=== PATIENT | female | born 1985 | race Caucasian/White ===

== ENCOUNTER 2024-12-26 14:30 | Inpatient (IN) ==
--- NOTE | 2024-12-26 14:48 | Emergency Department Note ---
Impression & Plan SBO (small bowel obstruction), Incarcerated hernia, Vomiting ED Provider Note NAME: SHYANNE DYER AGE: 39 SEX: F : 1985 ARRIVES VIA: Walk-In INFORMANT: [Patient][family] ED PROVIDER(S): [Nick Weiner MD] CHIEF COMPLAINT: Abdominal pain HISTORY OF PRESENT ILLNESS: Patient is a 39-year-old female who felt fine this morning. Over the last few hours, she has developed bilateral lower flank pain and anterior abdominal pain. Things are severe to the point where she is now vomiting. She presents moaning and crying in pain. The patient denies the discomfort being one-sided. She does have some known abdominal wall hernias and she wonders if the hernias are responsible. There has been no fever, no cough or congestion. No urinary complaints. No diarrhea. PMHx/PSHx/Social Hx: See Below PHYSICAL EXAM: GENERAL: Patient is in moderate distress from pain. Vomiting. HEENT: No acute trauma, normocephalic atraumatic, mucous membranes moist, no nasal congestion. NECK: No stridor, no adenopathy, no meningismus, trachea is midline. LUNGS: Clear to auscultation bilaterally, no wheeze, no rhonchi, breath sounds equal. HEART: Without murmurs gallops or rubs, regular rate and rhythm. ABDOMEN: Soft, obese, no peritonitis. She does have at least 2 areas of central abdominal herniation, the areas are tender but do seem at least partially reducible. The superior abdominal hernia is larger and more tender than the inferior hernia. EXTREMITIES: No cyanosis, full range of motion of all the joints without pain or difficulty. NEUROLOGIC: Oriented x 3, no acute motor or sensory deficits, no focal weakness. SKIN: No jaundice, no diaphoresis. DIFFERENTIAL DIAGNOSIS: Renal colic, bowel obstruction, incarcerated hernia, foodborne or viral illness, malignancy, among others. EMERGENCY DEPARTMENT PROCEDURES: MEDICAL DECISION MAKING: There is no leukocytosis or concerning anemia. There is a normal platelet count. There is no renal failure or significant electrolyte abnormality. No concerning liver enzyme elevation. No pancreatitis. testing was negative. Abdominal and pelvic CT shows what appears to be an incarcerated ventral wall abdominal hernia with resultant small bowel obstruction. On exam, the patient was vomiting and in quite a bit of discomfort. She did have some tenderness across the areas of abdominal wall hernia. The patient received IV Toradol, IV Zofran, IV Phenergan. She was given IV Dilaudid and eventually, IV fentanyl. She was given IV Pepcid. Patient was kept NPO. I did speak with general surgery. The patient was evaluated by general surgery here in the ED, she is in need of an operation. She is soon to be transferred to the operating room. Patient is aware of her findings and the need for surgery. She is somewhat improved since being treated here in the ED, her pain is less, she is no longer vomiting. Prior/Outside records/notes reviewed: None Imaging/x-ray results per my interpretation: Chronic Medical/Social conditions affecting care: None Care/Management discussed with: General Surgery-Dr. Martinez. Level of care consideration(s): After review of the information above and other included data: --I believe the patient requires escalation of care to admission Critical Care Note: I have personally spent 43 minutes of critical care time in the direct management of this patient. This includes bedside care, interpretation of diagnostic studies, and testing, discussion with consultants, patient, and family members, and other required patient management activities. This 43 minutes is in excess of all separately billable procedures. DISPOSITION: Admission Past Med/Surg History Problem List (Updated 12/26/24 @ 17:58 by Nick Weiner MD) Vomiting (Acute) Incarcerated hernia (Acute) SBO (small bowel obstruction) (Acute) Incarcerated ventral hernia Abnormal test (Acute 03/23/14) Fracture of distal fibula (Acute) Medical History Recurrent ventral hernia Social History Smoking Status: Former smoker Preferred Language: Omani Feels Safe at Home: Yes Allergies Allergies Allergy/AdvReac Type Severity Reaction Status Date / Time No Known Allergies Allergy Unverified 07/27/16 11:48 Home Meds Home Medications Medication Instructions Recorded Confirmed acetaminophen 325 mg tablet 325 mg PO DIRECTED PRN Pain 12/26/24 12/26/24 (Tylenol) albuterol sulfate 90 mcg/actuation 1 puff inhalation DIRECTED PRN 12/26/24 12/26/24 aerosol inhaler sob ashwagandha extract 1 tab PO DAILY 12/26/24 12/26/24 buspirone 10 mg tablet 10 mg PO TID PRN Anxiety 12/26/24 12/26/24 escitalopram oxalate 10 mg tablet 10 mg PO DAILY 12/26/24 12/26/24 famotidine 20 mg tablet 20 mg PO BID 12/26/24 12/26/24 ibuprofen 200 mg tablet 200 mg PO DIRECTED PRN Pain 12/26/24 12/26/24 iron 1 gummy PO DAILY 12/26/24 12/26/24 semaglutide 2 mg/dose (8 mg/3 mL) 2 mg subcut WK 12/26/24 12/26/24 subcutaneous pen injector (Ozempic) Results & Data (ED) Vital Signs Vital Signs - 24 hr 12/26/24 14:34 12/26/24 15:03 12/26/24 15:07 Temperature 36.4 C L Temperature Source Temporal Artery Scan Pulse Rate 78 77 Pulse Rate [Apical] 68 Respiratory Rate 20 22 Respiratory Effort / Characteristics Non-Labored Spontaneous Respiratory Depth Normal Respiratory Pattern Regular Blood Pressure 160/100 H Blood Pressure [Right Arm] 130/96 Blood Pressure Mean 120 Blood Pressure Mean [Right Arm] 107 Pulse Oximetry 99 97 Oxygen Delivery Method Room Air Room Air Oxygen Flow Rate Sepsis Recent Fever Within 48 Hours No Sepsis New/Unexplained Change in Mental Status N/A Sepsis Action Taken by Nursing No Action Required Oxygen Flow Rate - Titration Pulse Oximetry Post Tiitration 12/26/24 15:34 12/26/24 16:07 12/26/24 17:04 Temperature Temperature Source Pulse Rate Pulse Rate [Apical] 61 80 Respiratory Rate 20 18 Respiratory Effort / Characteristics Non-Labored Non-Labored Respiratory Depth Normal Normal Respiratory Pattern Blood Pressure Blood Pressure [Right Arm] 133/72 153/101 H Blood Pressure Mean Blood Pressure Mean [Right Arm] 92 118 Pulse Oximetry 88 L 99 100 Oxygen Delivery Method Room Air Nasal Cannula Nasal Cannula Oxygen Flow Rate 0 2 2 Sepsis Recent Fever Within 48 Hours Sepsis New/Unexplained Change in Mental Status Sepsis Action Taken by Nursing Oxygen Flow Rate - Titration 2 Pulse Oximetry Post Tiitration 99 Home Medications Current Medication List: was personally reviewed by me Laboratory Data Attestation: I reviewed the patient's lab results. 12/26/24 14:55 12/26/24 14:55 Lab Results 12/26/24 Range/Units 14:55 WBC 10.43 (4.8-10.8) K/ul RBC 4.35 (4.20-5.40) M/uL Hgb 13.6 (12.0-16.0) g/dl Hct 40.0 (37.0-47.0) % MCV 92.0 (80.0-100.0) fL MCH 31.3 (25.0-34.0) pg MCHC 34.0 (32.0-36.0) g/dL RDW Std Deviation 46.0 (36.4-46.3) fL RDW Coeff of Tram 13.5 (11.5-14.5) % Plt Count 322 (130-400) K/uL MPV 9.2 L (9.4-12.4) fL Immature Gran % (Auto) 0.3 % Neut % (Auto) 81.2 % Lymph % (Auto) 11.9 % [place] % (Auto) 5.8 % Eos % (Auto) 0.4 % Baso % (Auto) 0.4 % Neut # (Auto) 8.47 H (1.40-6.50) K/uL Lymph # (Auto) 1.24 (1.20-3.40) K/uL [place] # (Auto) 0.61 H (0.11-0.59) K/uL Eos # (Auto) 0.04 (0.00-0.50) K/uL Baso # (Auto) 0.04 (0.00-0.20) K/uL Immature Gran # (Auto) 0.03 (0.01-0.20) K/uL Sodium 138 (136-145) mmol/L Potassium 3.9 (3.5-5.1) mmol/L Chloride 105 (98-107) mmol/L Carbon Dioxide 25 (21-32) mmol/L Anion Gap 8 (3-11) BUN 16 (6-23) mg/dl Creatinine 0.56 L (0.6-1.2) mg/dl Est Cr Clr Drug Dosing 166.3 ml/min eGFR 118.98 BUN/Creatinine Ratio 28.6 H (10-20) Glucose 157 H (70-99(Fasting)) mg/dl Calcium 9.5 (8.6-10.3) mg/dl Total Bilirubin 0.6 (0.2-1.0) mg/dl AST 15 (13-39) U/L ALT 18 (7-52) U/L Alkaline Phosphatase 40 (34-104) U/L Total Protein 7.5 (6.0-8.3) gm/dl Albumin 4.5 (3.4-5.0) gm/dl Globulin 3.0 (2.5-4.0) gm/dl Albumin/Globulin Ratio 1.5 (0.9-2) Lipase 20 (11-82) U/L HCG, Qual Negative (Negative) Administered Medications Discontinued Medications Fentanyl Citrate (Fentanyl Citrate Pf 100 Mcg/2 Ml Vial) 75 mcg IV NOW ONE Stop: 12/26/24 15:36 Last Admin: 12/26/24 15:39 Dose: 75 mcg Documented By: AVINASH Fentanyl Citrate (Fentanyl Citrate Pf 100 Mcg/2 Ml Vial) 100 mcg IV NOW STA Stop: 12/26/24 17:22 Last Admin: 12/26/24 17:26 Dose: 100 mcg Documented By: AVINASH Hydromorphone HCl (Hydromorphone Inj 1 Mg/Ml Syringe) 1 mg IV NOW STA Stop: 12/26/24 14:45 Last Admin: 12/26/24 14:53 Dose: 1 mg Documented By: AVINASH Famotidine (Pepcid 20mg Iv Push) 20 mg in 5 mls @ 2.5 mls/min IV NOW STA Stop: 12/26/24 14:45 Last Admin: 12/26/24 14:53 Dose: 2.5 mls/min Documented By: AVINASH Promethazine HCl (Phenergan) 6.25 mg in 50.25 mls @ 201 mls/hr IV NOW STA Stop: 12/26/24 14:58 Last Infusion: 12/26/24 15:09 Dose: Infused Documented By: Admin: 12/26/24 14:53 Dose: 201 mls/hr Documented By: AVINASH Ioversol (Optiray 320 100ml) 94 ml IV ONCE ONE Stop: 12/26/24 15:50 Last Admin: 12/26/24 15:49 Dose: 94 ml Documented By: HANS Ketorolac Tromethamine (Ketorolac Tromethamine 15 Mg/Ml Vial) 15 mg IV NOW STA Stop: 12/26/24 14:45 Last Admin: 12/26/24 14:53 Dose: 15 mg Documented By: AVINASH Ondansetron HCl (Ondansetron Inj 2 Mg/Ml 2 Ml Vial) 4 mg IV NOW STA Stop: 12/26/24 14:45 Last Admin: 12/26/24 14:53 Dose: 4 mg Documented By: AVINASH Imaging Data Radiologist's Impression: Abdomen/Pelvis CT 12/26/24 14:[address] WITH IV CONTRAST CT DOSE: 1352.6 mGy.cm HISTORY: flank and diffuse abd pain, vomiting TECHNIQUE: Multiaxial CT images of the abdomen and pelvis were performed following the IV administration of 90 cc of Optiray, A dose lowering technique was utilized adhering to the principles of ALARA. COMPARISON STUDY: None FINDINGS: ABDOMEN: Liver, gallbladder, spleen, pancreas, and adrenal glands are unremarkable. No abdominal aortic aneurysm. There are a few tiny bilateral renal calculi. There is no hydronephrosis bilaterally. No ureteral calculi seen. Pelvis: There are 2 adjacent periumbilical hernias containing multiple small bowel loops. The hernias overall measures 10 cm in greatest axial dimension by 25 cm craniocaudad. There is a small amount of fluid inferiorly in the hernia. The small bowel loops within the superior hernia are mildly dilated measuring up to 3 cm diameter. There is mesenteric edema adjacent to the dilated small bowel loops. The small bowel just proximal to the hernia is also mildly dilated. The hernia neck is relatively narrow measuring 4 cm diameter. Findings suggest incarceration and small bowel obstruction. No other bowel inflammation or obstruction seen. There is moderate retained stool. There is trace pelvic free fluid. No free air, or abscess. Urinary bladder is nondistended. Uterus is either absent or extremely diminutive. No adnexal mass seen. No enlarged adenopathy seen. Osseous structures: There are mild lumbar spine degenerative changes. IMPRESSION: 1. There are 2 large periumbilical hernias which contain small bowel. The small bowel within the upper periumbilical hernia is mildly dilated with adjacent mesenteric edema and the small bowel just proximal to the hernia is also mildly dilated. The hernia neck is relatively narrow. Findings suggest incarceration and early small bowel obstruction. 2. No other acute findings seen. 3. Otherwise as described. ACT 112: Positive. There are findings on this exam that require communication between the performing entity and the patient following Patient Test Result Information Act ([place] Act 112) guidelines. The above report was generated using voice recognition software. It may contain grammatical, syntax or spelling errors. Electronically signed by: Cheng Briseno M.D. 12/26/2024 4:10 PM Discharge Plan Visit Data Chief Complaint: Abdominal Pain Stated Complaint: BACK PAIN, ABD/HERNIA PAIN ED Provider: Nick Weiner Discharge Problem: SBO (small bowel obstruction), Incarcerated hernia, Vomiting Patient Disposition: Admitted As Inpatient Condition: Fair Forms Stand Alone Forms: [facility] Prescriptions Prescriptions: No Action acetaminophen [Tylenol] 325 mg Tablet 325 mg PO DIRECTED PRN (Reason: Pain) Rx Instructions: otc famotidine 20 mg tablet 20 mg PO BID buspirone 10 mg tablet 10 mg PO TID PRN (Reason: Anxiety) ibuprofen 200 mg Tablet 200 mg PO DIRECTED PRN (Reason: Pain) albuterol sulfate 90 mcg/actuation HFA aerosol inhaler 1 puff INHALATION DIRECTED PRN (Reason: sob) escitalopram oxalate 10 mg tablet 10 mg PO DAILY Ozempic 2 mg/dose (8 mg/3 mL) pen injector 2 mg SUBCUT WK ashwagandha extract 1 tab PO DAILY Rx Instructions: otc iron 1 gummy PO DAILY Rx Instructions: otc Referrals Referrals: Artur Melendez MD [Outside Practitioners] - Discharge Problem: Vomiting Qualifiers: Vomiting type: unspecified Nausea presence: with nausea Qualified Code(s): R 11.2 - Nausea with vomiting, unspecified
[2024-12-26] MEDS: HYDROmorphone INJ 1 MG/ML SYRINGE IV STA (14:53)
[2024-12-26] MEDS: KETOROLAC TROMETHAMINE 15 MG/ML VIAL IV STA (14:53)
[2024-12-26] MEDS: PROMETHAZINE 6.25 MG/50.25 ML BAG IV STA (14:53)
[2024-12-26] MEDS: FAMOTIDINE 20MG IV PUSH 20 MG/5 ML SYR IV STA (14:53)
[2024-12-26] MEDS: ONDANSETRON INJ 2 MG/ML 2 ML VIAL IV STA (14:53)
[2024-12-26 15:13] LABS: Basophils # (auto) 0.04 K/uL (0.00-0.20); Basophils % (auto) 0.4 %; Eosinophils # (auto) 0.04 K/uL (0.00-0.50); Eosinophils % (auto) 0.4 %; Hemoglobin 13.6 g/dl (12.0-16.0); Immature Granulocytes # (auto) 0.03 K/uL (0.01-0.20); Immature Granulocytes % (auto) 0.3 %; Lymphocytes # (auto) 1.24 K/uL (1.20-3.40); Lymphocytes % (auto) 11.9 %; Mean Corpuscular Hemoglobin 31.3 pg (25.0-34.0); Mean Platelet Volume 9.2 fL (9.4-12.4); Monocytes # (auto) 0.61 K/uL (0.11-0.59); Monocytes % (auto) 5.8 %; Neutrophils # (auto) 8.47 K/uL (1.40-6.50); Neutrophils % (auto) 81.2 %; Platelet Count 322 K/uL (130-400); RDW Coefficient of Variation 13.5 % (11.5-14.5); Red Blood Count 4.35 M/uL (4.20-5.40); White Blood Count 10.43 K/ul (4.8-10.8)
[2024-12-26 15:29] LABS: Pregnancy Test, Serum Negative (Negative)
[2024-12-26 15:31] LABS: Albumin Globulin Ratio 1.5 (0.9-2); Albumin Level 4.5 gm/dl (3.4-5.0); BUN Creatinine Ratio 28.6 (10-20); Bilirubin,Total 0.6 mg/dl (0.2-1.0); Calcium 9.5 mg/dl (8.6-10.3); Creatinine Clr Calc Pharmacy 166.3 ml/min; Potassium 3.9 mmol/L (3.5-5.1); Total Protein 7.5 gm/dl (6.0-8.3)
[2024-12-26] MEDS: fentaNYL citrate PF 100 MCG/2 ML VIAL IV ONE (15:39)
[2024-12-26] MEDS: OPTIRAY 320 100ml IV ONE (15:49)
--- NOTE | 2024-12-26 16:11 | CT Scan Report ---
ABDOMEN AND PELVIS CT WITH IV CONTRAST CT DOSE: 1352.6 mGy.cm HISTORY: flank and diffuse abd pain, vomiting TECHNIQUE: Multiaxial CT images of the abdomen and pelvis were performed following the IV administrat ion of 90 cc of Optiray, A dose lowering technique was utilized adhering to the principles of ALARA. COMPARISON STUDY: None FINDINGS: ABDOMEN: Liver, gallbladder, spleen, pancreas, and adrenal glands are unremarkable. No abdominal aort ic aneurysm. There are a few tiny bilateral renal calculi. There is no hydronephrosis bilaterally. No ureteral calculi seen. Pelvis: There are 2 adjacent periumbilical hernias containing multiple small bowel loops. The hernias overall measures 10 cm in greatest axial dimension by 25 cm craniocaudad. There is a small amount of fluid inferiorly in the hernia. The small bowel loops within the superior hernia are mildly dilated measuring up to 3 cm diameter. There is mesenteric edema adjacent to the dilated small bowel loops. T he small bowel just proximal to the hernia is also mildly dilated. The hernia neck is relatively narr ow measuring 4 cm diameter. Findings suggest incarceration and small bowel obstruction. No other bowel inflammation or obstruction seen. There is moderate retained stool. There is trace pel con free fluid. No free air, or abscess. Urinary bladder is nondistended. Uterus is either absent or extremely diminutive. No adnexal mass seen. No enlarged adenopathy seen. Osseous structures: There are mild lumbar spine degenerative changes. IMPRESSION: 1. There are 2 large periumbilical hernias which contain small bowel. The small bowel within the uppe r periumbilical hernia is mildly dilated with adjacent mesenteric edema and the small bowel just prox imal to the hernia is also mildly dilated. The hernia neck is relatively narrow. Findings suggest inc arceration and early small bowel obstruction. 2. No other acute findings seen. 3. Otherwise as described. ACT 112: Positive. There are findings on this exam that require communication between the performing entity and the patient following Patient Test Result Information Act ([place] Act 112) guidelines. The above report was generated using voice recognition software. It may contain grammatical, syntax o r spelling errors. Electronically signed by: Cheng Briseno M.D. 12/26/2024 4:10 PM
--- NOTE | 2024-12-26 17:09 | History & Physical Report ---
Date of Service December 26, 2024 Assessment & Plan (1) Incarcerated ventral hernia: Plan: Despite narcotics she continues to have rather severe back pain. Because of this and because of the appearance of her CT scan I am recommending urgent surgical intervention. I would recommend we proceed with a laparoscopy with evaluation of the bowel reduction of the hernia and mesh underlay assuming that there is no bowel damage. Her lower hernia was fixed previously but without mesh and we would be planning on repairing that as well. We discussed potential risks which include bleeding, infection, injury to another organ such as bowel, DVT, PE, [place], CVA etc. Following our discussion I answered all of her questions. We will proceed this evening with laparoscopic repair of an incarcerated ventral hernia with mesh underlay as well as repair of a recurrent ventral abdom inal wall hernia with mesh underlay. (2) Recurrent ventral hernia: History of Present Illness Primary Care Provider: SANDRA Chávez 39-year-old female who began earlier this morning with lower abdominal pain. She has known hernias and in fact was supposed to have an appointment tomorrow with her surgeon in [place] to discuss. The superiormost hernia became very hard and extremely painful. She presented to the emergency room. CT scan shows incarcerated supraumbilical hernia with some mesenteric stranding potential partial small bowel obstruction. Allergies Allergy/AdvReac Type Severity Reaction Status Date / Time No Known Allergies Allergy Unverified 07/27/16 11:48 Home Medications Medication Instructions Recorded Confirmed Type acetaminophen 325 mg tablet 325 mg PO DIRECTED PRN Pain 12/26/24 12/26/24 History (Tylenol) albuterol sulfate 90 mcg/actuation 1 puff inhalation DIRECTED PRN 12/26/24 12/26/24 History aerosol inhaler sob ashwagandha extract 1 tab PO DAILY 12/26/24 12/26/24 History buspirone 10 mg tablet 10 mg PO TID PRN Anxiety 12/26/24 12/26/24 History escitalopram oxalate 10 mg tablet 10 mg PO DAILY 12/26/24 12/26/24 History famotidine 20 mg tablet 20 mg PO BID 12/26/24 12/26/24 History ibuprofen 200 mg tablet 200 mg PO DIRECTED PRN Pain 12/26/24 12/26/24 History iron 1 gummy PO DAILY 12/26/24 12/26/24 History semaglutide 2 mg/dose (8 mg/3 mL) 2 mg subcut WK 12/26/24 12/26/24 History subcutaneous pen injector (Ozempic) Past Med/Surg History Problem List (Updated 12/26/24 @ 17:08 by Jan Martinez, DO) Recurrent ventral hernia Incarcerated ventral hernia Abnormal test (Acute 03/23/14) Fracture of distal fibula (Acute) Social History Smoking Status: Former smoker Preferred Language: Swedish Feels Safe at Home: Yes Review of Systems All systems reviewed & are unremarkable except as noted in HPI & below Physical Exam Constitutional: WD/WN, vitals as above no acute distress and not ill appearing Eyes: PERRL, conjunctivae normal, anicteric sclerae EOM intact bilaterally ENMT: external ear and nose normal, oropharynx normal Ears: no hearing impairment Neck: trachea midline, no thyromegaly Respiratory: normal respiratory effort; no respiratory distress and does not use accessory muscles Cardiovascular: Rate/Rhythm: regular rate and regular rhythm Gastrointestinal (Abdomen): Soft. Obese. There are 2 palpable hernias 1 below the umbilicus and one just superior to that. They are currently soft although the superior 1 is tender. There are some mild color changes at the superior hernia Skin: no rashes, warm and dry Psychiatric: Orientation: alert, oriented x 3 and cooperative Results & Data Vital Signs (Past 12 Hours) Vital Signs Temp Pulse Pulse Resp BP BP Pulse Ox 12/26/24 17:04 80 18 153/101 H 100 12/26/24 16:07 61 20 133/72 99 12/26/24 15:34 88 L 12/26/24 15:07 68 22 130/96 97 12/26/24 15:03 77 12/26/24 14:34 36.4 C L 78 20 160/100 H 99 O2 Del Method O2 Flow Rate 12/26/24 17:04 Nasal Cannula 2 12/26/24 16:07 Nasal Cannula 2 12/26/24 15:34 Room Air 0 12/26/24 15:07 Room Air 12/26/24 15:03 12/26/24 14:34 Room Air
[2024-12-26] MEDS ORDERED: fentaNYL citrate PF 100 MCG/2 ML VIAL IV PRN ×2 (17:21→18:36)
[2024-12-26] MEDS: fentaNYL citrate PF 100 MCG/2 ML VIAL IV STA (17:26)
[2024-12-26] MEDS ORDERED: ePHEDrine sulfate 50 MG/ML AMP IV PRN (18:36)
[2024-12-26] MEDS ORDERED: ATROPINE SULFATE 0.1 MG/ML 10ML SYR IV PRN (18:36)
[2024-12-26] MEDS ORDERED: ONDANSETRON INJ 2 MG/ML 2 ML VIAL IV PRN (18:36)
[2024-12-26] MEDS ORDERED: PROMETHAZINE HCL 6.25 MG in SODIUM CHLORIDE 0.9% 50 ML IV PRN (18:36)
--- NOTE | 2024-12-26 18:36 | Anesthesiology Consultation ---
Date of Service December 26, 2024 Assessment & Plan Chart Review Chart Review: Acceptable Risk for Surgery and Patient NOT seen in Pre Admission Testing Consults Requested none ASA [id number] Proposed Anesthesia Anesthesia Type: General Risk / Benefits Reviewed With: PT / POA / Parent / Guardian, Accepts Plan and Informed Consent Obtained History Surgery Operation Date: 12/26/24 18:00 Proposed Procedures p Laparoscopic Ventral Hernia Repair x2 with mesh - Jan Martinez, DO Height/Weight Height: 5 ft 5 in Weight: 109.8 kg Allergies Allergy/AdvReac Type Severity Reaction Status Date / Time No Known Allergies Allergy Unverified 07/27/16 11:48 Medications Home Medications Medication Instructions Recorded Confirmed Last Taken acetaminophen 325 mg tablet 325 mg PO DIRECTED PRN Pain 12/26/24 12/26/24 Unknown (Tylenol) albuterol sulfate 90 mcg/actuation 1 puff inhalation DIRECTED PRN 12/26/24 12/26/24 Unknown aerosol inhaler sob ashwagandha extract 1 tab PO DAILY 12/26/24 12/26/24 Unknown buspirone 10 mg tablet 10 mg PO TID PRN Anxiety 12/26/24 12/26/24 12/26/24 escitalopram oxalate 10 mg tablet 10 mg PO DAILY 12/26/24 12/26/24 Unknown famotidine 20 mg tablet 20 mg PO BID 12/26/24 12/26/24 Unknown ibuprofen 200 mg tablet 200 mg PO DIRECTED PRN Pain 12/26/24 12/26/24 Unknown iron 1 gummy PO DAILY 12/26/24 12/26/24 Unknown semaglutide 2 mg/dose (8 mg/3 mL) 2 mg subcut WK 12/26/24 12/26/24 11/27/24 subcutaneous pen injector (Ozempic) Past Medical History Medical History Recurrent ventral hernia Exercise / Class Metabolic Activity II 4-5 Yardwork/Stairs/Walk up hill Past Anesthesia History No Hx of Anesthesia Complications and No Family Hx of Anesthesia Complications History of PONV No Hx of PONV and No Hx of Motion Sickness Social History Smoking Status: Former smoker Physical Exam Vital Signs Last Vital Signs Temp 36.4 C L 12/26/24 14:34 Pulse 62 12/26/24 18:14 Resp 18 12/26/24 18:14 BP 153/89 H 12/26/24 18:14 Pulse Ox 99 12/26/24 18:14 O2 Del Method Nasal Cannula 12/26/24 18:14 O2 Flow Rate 2 12/26/24 18:14 ENMT Mouth: no dentition abnormality Thyromental Distance: > or= 3.5 Finger Breadths Mallampati Class: II Neck normal visual inspection Respiratory normal respiratory effort Auscultation: lungs clear to auscultation bilaterally Cardiovascular Rate/Rhythm: regular rate and regular rhythm Psychiatric Orientation: alert Testing Laboratory Results 12/26/24 14:55 12/26/24 14:55
[2024-12-26] MEDS: ceFAZolin 2000MG 2,000 MG/15 ML SYR IV ONE (19:26)
[2024-12-26] MEDS ORDERED: fentaNYL citrate PF 100 MCG/2 ML VIAL ONE ×3 (19:45→21:04)
[2024-12-26] MEDS ORDERED: ROCURONIUM BROMIDE 10 MG/ML 5 ML VIAL IV ONE (19:45)
[2024-12-26] MEDS ORDERED: MIDAZOLAM HCL 1 MG/ML 2ML VIAL ONE (19:45)
[2024-12-26] MEDS ORDERED: LIDOCAINE 2% 2 ML VIAL/AMP(20MG/ML) INFIL ONE (19:45)
[2024-12-26] MEDS ORDERED: DEXAMETHASONE SOD INJ 4 MG/ML VIAL ONE (19:45)
[2024-12-26] MEDS ORDERED: ONDANSETRON INJ 2 MG/ML 2 ML VIAL ONE (19:45)
[2024-12-26] MEDS ORDERED: PROPOFOL IV EMULSION 10 MG/ML 20 ML VIAL IV ONE (19:45)
[2024-12-26] MEDS ORDERED: DROPERIDOL 5 MG/2 ML VIAL ONE (19:45)
[2024-12-26] MEDS ORDERED: KETAMINE HCL 10MG/ML SYR ONE (19:57)
[2024-12-26] MEDS ORDERED: PHENYLEPHRINE HCL 10 MG/ML VIAL ONE (20:27)
[2024-12-26] MEDS ORDERED: SUGAMMADEX SODIUM 200 MG/2 ML VIAL IV ONE (21:34)
[2024-12-26] MEDS: BUPIVACAINE/EPINEPHRINE 0.5% MPF 1:200,000 30 ML VIAL ONE (21:45)
--- NOTE | 2024-12-26 22:05 | Operative Report ---
PG Post Operative Report Pre & Post Diagnosis Operation Date: 12/26/24 18:00 Pre-Op Diagnosis: Incarcerated Hernia, Recurrent Hernia Post-Op Diagnosis: Incarcerated Hernia, Recurrent Hernia; partial small bowel obstruction;small bowel ischemia I identified the patient and participated in the time-out.: Yes Procedure Operation Date: 12/26/24 18:00 Actual Procedures p Laparoscopic convert to open Ventral Hernia (recurrent) Repair x2 with mesh(Not Applicable) - Jan Martinez DO Surgeon Jan Martinez DO Dedenter itz Sharma Estimated Blood Loss 50 Findings Consistent with Post-Op Diagnosis Specimens none Description of Procedure After informed consent was obtained the patient was taken to the operating room and placed in supine position. After successful intubation a Maldonado catheter was placed sterilely. The abdomen was then sterilely prepped and draped in usual fashion. I began with an upper midline incision with an 11 blade scalpel. This was carried down through the soft tissue using cautery. Anterior fascia was opened using cautery and two #0 Vicryl stay sutures were placed. Peritoneum was elevated with hemostats and incised under direct vision using a Metzenbaum scissor. Finger sweep was performed. A 12 mm Dawson trocar was placed and the abdomen was insufflated to 20 mmHg. Laparoscope was inserted and the abdomen examined 360 degrees. There was a very unusual appearing hernia in the upper midline. There was then a bridge of fascia followed by a second hernia on the lower midline. I began by placing a left upper quadrant 5 mm trocar in the left mid abdominal 5 mm trocar. I tried for quite some time to reduce the hernia by pushing externally manually as well as light traction from the inside. Eventually I was able to understand the confusing anatomy. A loop of small bowel had entered into the subcutaneous space from the inferior hernia migrated cephalad folded upon itself and then came back down into the abdominal cavity via the more superior defect. This loop of bowel was not infarcted but it was ischemic. When we would pull on the bowel to try and reduce it it would become more ischemic. It became readily apparent there would be no way to reduce this laparoscopically. At this point I converted to an open procedure. I opened the previous midline incision with a 15 blade scalpel and then very carefully dissected this through with a Metzenbaum scissor. Eventually I was able to find the peritoneum and open it using a Metzenbaum scissor. I then extended the incision to both poles using cautery. Once we did this we were then able to manually pull the ischemic loop of bowel up into the subcutaneous space. I would say there was probably 6 to 8 feet of incarcerated small bowel. Once we reduced it we did check it for damage. It did pink up shortly after reducing it. We were then able to manually place this back into the abdominal cavity. There did not appear to be any damage. This left us with two 4 to 5 cm hernias with a several centimeter fascial bridge in between. I opted to place a mesh underlay. A 20 x 15 piece of Surgimesh with an anti-adhesive barrier was opened and placed into through the inferior most defect. Prior to doing this I placed a #1 Ethibond in the central portion of it. A fascial closure device was used to come through the fascial bridge between the 2 hernias grasped the central stitch and pull it up through the anterior abdominal wall. We then unfolded the mesh so that it was placed as an underlay. It overlapped the defects for at least 4-5 cm in all directions. Once I did this I then closed the fascia using #1 Ethibond in simple interrupted fashion starting at the superior pole and completing it at the inferior pole. At this point I re-insufflated the abdomen. Using the laparoscope and the Reliatack device with the deep tacks I then secured the mesh in 360 degrees. In order to do this I had to place a right upper quadrant and a right mid abdominal 5 mm trocar as well. It laid nice and flat and tension-free. The at the superior aspect in order to place the mesh flat against the fascia I did have to take down a part of the falciform ligament using the harmonic scalpel. At the end of the procedure there was adequate hemostasis. No other abnormalities were seen. The trocars were all removed and the abdomen desufflated. The fascia of the camera port was closed using 0 Vicryl in [id number] fashion. All of the trocar sites were irrigated and closed using 4-0 Monocryl. The midline incision was irrigated and closed in 2 layers using 2-0 Vicryl deep layers and 4 Monocryl for skin. Marcaine with epinephrine were injected around all the incisions for postoperative analgesia. Dermabond glue was used as a dressing. An abdominal binder was placed. The patient was awakened extubated and transferred to recovery in stable condition. My physician media assistant was present for the entire case and was instrumental in assisting with trocar placement running the camera assisting with exposure during my dissection assisting with mesh placement wound closure and dressing placement. The total length of both hernia defects combined it was probably 10 cm in length. I attest to the content of the Intraoperative Record and any orders documented therein. Any exceptions are noted below.
[2024-12-26] MEDS ORDERED: HYDROmorphone INJ 2 MG/ML SYR/VIAL IV PRN (22:06)
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
--- OUTSIDE RECORDS SUMMARY | 2024-12-26 22:57 | External Medical Summary | Summary of Care ---
Author Name Unknown Organization [facility] Address [address] [address] Care Team Providers Care Automobile Brakes Bonder Name Role Phone Leslee Marion Primary Care Provider [phone] Reason for Visit * Reason Onset Date Comments Medication Refill 11/07/2024 Encounter Details Date Type Department Care Team (Late st Contact Info) Description 11/07/2024 Refill [facility] [address] [place] [phone] Leslee Marion FNP [address] [facility] [place] [address] COPD exacerbation (Primary Dx) Allergies No known active allergiesdocumented as of this encounter (statuses as of 11/07/2024) Medications ferrous sulfate 325 (65 Fe) MG Oral Tab Take 1 Tablet by mouth DAILY. 90 Tablet 3 4 Active escitalopram (LEXAPRO) 10 MG Oral [...] DAILY for 7 days. 21 Capsule 5 025 Active Albuterol Sulfate 108 (90 Base) MCG/ACT Inhalation AEROSOL POWDER, BREATH ACTIVATEDIndicat ions:COPD exacerbation Take 2 Puffs by inhalation EVERY FOUR HOURS NEEDED (shortness of breath). 1 Each 1 5 Active Albuterol Sulfate 108 (90 Base) MCG/ACT Inhalation AEROSOL POWDER, BREATH ACTIVATEDIndicat ions:COPD exacerbation Take 2 Puffs by inhalation EVERY FOUR HOURS NEEDED (shortness of breath). 1 Each 1 4 025 Discontin ued(Reord er) documented as of this encounter (statuses as of 11/07/2024) Active Problems Problem Noted Date Diagnosed Date [...] as of this encounter (statuses as of 11/07/2024) Resolved Problems Problem Noted Date Diagnosed Date [...] as of this encounter (statuses as of 11/07/2024) Immunizations Immunization Administration Dates Next Due Influenza [...] on file documented as of this encounter Miscellaneous Notes * Telephone Encounter - Celia Robles LPN - 11/07/2024 8:49 AM EDT PATIENT: Ilana Pond : 1985 DATE OF SERVICE: 11/07/2024 Requested Prescriptions Pending Prescriptions Disp Refills Albuterol Sulfate 108 (90 Base) MCG/ACT Inhalation AEROSOL POWDER, BREATH ACTIVATED 1 Each 1 Sig: Take 2 Puffs by inhalation EVERY FOUR HOURS NEEDED (shortness of breath). [facility] - [place] - [address] [place] [id number] Last ordered on 07/24/24 Last encounter in this department : 08/29/2024 Next appointment scheduled in this department : 11/28/2024 Author: Celia Robles LPN 11/07/2024 08:49 * Telephone Encounter - Marisa Vance - 11/07/2024 7:06 AM EDT Requested Prescriptions Pending Prescriptions Disp Refills Albuterol Sulfate 108 (90 Base) MCG/ACT Inhalation AEROSOL POWDER, BREATH ACTIVATED 1 Each 1 Sig: Take 2 Puffs by inhalation EVERY FOUR HOURS NEEDED (shortness of breath). documented in this encounter Plan of Treatment Upcoming Encounters Date Type Department Care Team (Late st Contact Info) Description 11/28/2024 11:00 AM EDT [facility] [address] [place] [phone] Leslee Marion FNP [address] [place] [address] Health Maintenance Due Date [...] an individualized treatment (COPD) goal for Ilana Mel Denizleon: Quitting smoking is the most important part of treatment of COPD. Quit smoking immediately! Your provider has information and resources that may help you to quit. Depression screen (PHQ-9) total score < 5 Depression No Leslee Marion FNP Note: This is an individualized treatment (depression) goal for Ilanarebecca Guzmanalexleon: Displayed above is your goal for a depression screening (PHQ-9) score that would indicate good control of your depression. Keep immunizations current Lifestyle No Leslee Mairon FNP Note: This is an individualized lifestyle goal for Ilana Mel Pond: Please be sure to keep up-to-date on recommended immunizations. For example, this would include a yearly influenza vaccine. Immunization status can be seen by looking at the Health Maintenance sections of your e[facility], Plan of Care, and any After Visit Summaries. Keep a regular sleep schedule Lifestyle No Leslee Marion FNP Note: This is an individualized lifestyle goal for Ilana Melmeron Pond: Please maintain a regular sleep schedule. [...] ongoing basis. documented as of this encounter Visit Diagnoses Diagnosis COPD exacerbation- Primary Obstructive chronic bronchitis with exacerbation documented in this encounter Insurance [employer] [phone] documented as of this encounter Advance Directives [...] and agreed to: Full Code Care Teams Automobile Brakes Bonder Relationship Specialty Start Date End Date Leslee Marion FNP [address] [place] [id number] PCP - General FAMILY PRACTICE 05/04/23 documented as of this encounter
--- OUTSIDE RECORDS SUMMARY | 2024-12-26 22:57 | External Medical Summary | Summary of Care ---
Author Name Unknown Organization [facility] Address [address] [place] [address] Care Team Providers Care Technical Sales Advisor Name Role Phone Leslee Marion SANDRA Primary Care Provider Reason for Visit * Reason Onset Date Comments Insurance/Prior Authorization 11/17/2024 Encounter Details Date Type Department Care Team (Late st Contact Info) Description 11/17/2024 Telephone [facility] [address] [facility] [place] [phone] Macy Bravo Insurance/Prior Authorization Allergies No known active allergiesdocumented as of this encounter (statuses as of 11/21/2024) Medications ferrous sulfate 325 (65 Fe) MG [...] by mouth DIRECTED. 1 Each 5 Active Albuterol Sulfate 108 (90 Base) MCG/ACT Inhalation AEROSOL POWDER, BREATH ACTIVATEDIndicati ons:COPD exacerbation (HCC) Take 2 Puffs by inhalation EVERY FOUR HOURS NEEDED (shortness of breath). 1 Each 1 5 Active documented as of this encounter (statuses as of 11/21/2024) Active Problems Problem Noted Date Diagnosed Date [...] as of this encounter (statuses as of 11/21/2024) Resolved Problems Problem Noted Date Diagnosed Date Resolved Date Missed 01/15/2023 06/30/2023 Postoperative anemia due to acute blood loss 2 06/30/2023 Overview (03/23/2022): Hb 11.3 on admission [...] as of this encounter (statuses as of 11/21/2024) Immunizations Immunization Administration Dates Next Due Influenza [...] encounter Miscellaneous Notes * Telephone Encounter - Macy Bravo - 11/17/2024 11:54 AM EDT PATIENT: Ilana Pond : 1985 DATE OF SERVICE: 11/17/2024 [employer] called and the ozempic was denied Will be faxing denial Thank you Author: Macy Bravo 11/17/2024 11:54 documented in this encounter Plan of Treatment Upcoming Encounters Date Type Department Care Team (Late st Contact Info) Description 11/28/2024 11:00 AM EDT Office Visit [facility] [address] [place] [phone] Leslee Marion FNP [address] [place] [address] Health Maintenance Due Date Last Done Comments PNEUMOCOCCAL 0-49 YRS (1 of 2 - PCV) 2004 LIPID DISORDER SCREENING 2005 PAP SMEAR 09/04/2024 09/04/2021 DEPRESSION SCREENING 10/29/2024 05/01/2024 INFLUENZA VACCINE (Season Ended) 2025 06/02/2023, 05/10/2014 DIABETES SCREENING 05/07/2025 05/07/2024, 0 05/06/2024, 05/05/2024, [...] Progress Patient-Stated? Author Smoking Cessation COPD No Lesele Marion FNP Note: This is an individualized [...] basis. documented as of this encounter Insurance [employer] [place] [phone] documented as of this encounter Advance Directives [...] and agreed to: Full Code Care Teams Technical Sales Advisor Relationship Specialty Start Date End Date Leslee Marion FNP [facility] [place] [address] [id number] PCP - General FAMILY PRACTICE 05/04/23 documented as of this encounter
--- OUTSIDE RECORDS SUMMARY | 2024-12-26 22:57 | External Medical Summary | Summary of Care ---
Author Name Unknown Organization [facility] Address [address] [address] Care Team Providers Care Flooring Grader Name Role Phone Leslee Marion Primary Care Provider Encounter Details Date Type Department Care Team (Late st Contact Info) Description 10/16/2024 Patient Message Boy [facility] [address] [place] [phone] Leslee Marion FNP [address] [place] [address] Hernia surgery Allergies No known active allergiesdocumented as of this encounter (statuses as of 10/18/2024) Medications ferrous sulfate 325 (65 Fe) MG [...] by mouth DIRECTED. 1 Each 5 Active documented as of this encounter (statuses as of 10/18/2024) Active Problems Problem Noted Date Diagnosed Date [...] as of this encounter (statuses as of 10/18/2024) Resolved Problems Problem Noted Date Diagnosed Date [...] as of this encounter (statuses as of 10/18/2024) Immunizations Immunization Administration Dates Next Due Influenza [...] EDT Office Visit [facility] [address] [phone] Leslee Marion FNP [address] [...] basis. documented as of this encounter [place] [employer] [phone] documented as of this encounter Advance Directives [...] and agreed to: Full Code Care Teams Flooring Grader Relationship Specialty Start Date End Date Leslee Marion FNP [address] [place] [address] PCP - General FAMILY PRACTICE 05/04/23 documented as of this encounter
--- OUTSIDE RECORDS SUMMARY | 2024-12-26 22:57 | External Medical Summary | Summary of Care ---
Author Name Unknown Organization [facility] Address [address] [address] Care Team Providers Care Assistant Manager Name Role Phone Leslee Marion Primary Care Provider Encounter Details Date Type Department Care Team (Late st Contact Info) Description 11/17/2024 Scan Encounter [facility] [address] [place] [id number] Default, Provider, MD Allergies No known active allergiesdocumented as of this encounter (statuses as of 11/24/2024) Medications ferrous sulfate 325 (65 Fe) MG [...] as of this encounter (statuses as of 11/24/2024) Active Problems Problem Noted Date Diagnosed Date [...] as of this encounter (statuses as of 11/24/2024) Resolved Problems Problem Noted Date Diagnosed Date [...] as of this encounter (statuses as of 11/24/2024) Immunizations Immunization Administration Dates Next Due Influenza [...] Care Team (Late st Contact Info) Description 01/05/2025 11:40 AM EDT Office Visit [facility] [address] [place] [phone] Leslee Marion, [facility] [address] [place] [address] Health Maintenance Due Date [...] an individualized treatment (COPD) goal for Ilana Guzmanjacquelinedebbi: Quitting smoking is the most important part [...] is an individualized lifestyle goal for Ilana Guzmanjacquelinedebbi: Please be sure to keep up-to-date on recommended immunizations. For example, this would include a yearly influenza vaccine. Immunization status can be seen by looking at the Health Maintenance sections of your e[employer], Plan of Care, and any After Visit Summaries. Keep a regular sleep schedule Lifestyle No Leslee Marion FNP Note: This is an individualized lifestyle goal for Ilana Guzmanjacquelinedebbi: Please maintain a regular sleep schedule. This [...] basis. documented as of this encounter Insurance [facility]/[address] [phone] documented as of this encounter Advance Directives [...] and agreed to: Full Code Care Teams Assistant Manager Relationship Specialty Start Date End Date Leslee Marion FNP [address] [place] [address] [address] PCP - General FAMILY PRACTICE 05/04/23 documented as of this encounter
--- OUTSIDE RECORDS SUMMARY | 2024-12-26 22:57 | External Medical Summary | Summary of Care ---
Author Name Unknown Organization [facility] Address [address] [address] Care Team Providers Care Regulatory Submissions Specialist Name Role Phone Leslee Marion Primary Care Provider Encounter Details Date Type Department Care Team (Late st Contact Info) Description 11/24/2024 Patient Message Boy [facility] [address] [place] [phone] Leslee Marion FNP [address] [place] [address] Ozempic Allergies No known active allergiesdocumented as of this encounter (statuses as of 11/27/2024) Medications ferrous sulfate 325 (65 Fe) MG [...] as of this encounter (statuses as of 11/27/2024) Active Problems Problem Noted Date Diagnosed Date [...] as of this encounter (statuses as of 11/27/2024) Resolved Problems Problem Noted Date Diagnosed Date [...] as of this encounter (statuses as of 11/27/2024) Immunizations Immunization Administration Dates Next Due Influenza [...] all prescribed medications as directed Self-managemen t Leslee Wilson FNP Note: This is an individualized self-management [...] basis. documented as of this encounter Insurance [employer] [phone] documented as of this encounter Advance Directives [...] and agreed to: Full Code Care Teams Regulatory Submissions Specialist Relationship Specialty Start Date End Date Leslee Marion FNP [address] [place] [address] [address] PCP - General FAMILY PRACTICE 05/04/23 documented as of this encounter
--- OUTSIDE RECORDS SUMMARY | 2024-12-26 22:57 | External Medical Summary | Summary of Care ---
Author Name Unknown Organization [facility] Address [address] [place] [address] Phone [phone] Care Team Providers Care Explosive Expert Name Role Phone Idalia Reed MD Primary Care Provider [phone] Encounter Details Date Type Department Care Team (Latest Contact Info) Description 05/05/2024 10:00 AM EDT - 05/05/2024 11:59 PM EDT Hospital Encounter Radiology [facility] [address] [place] [address] Discharge Disposition: Home - Self Care Allergies No known active allergiesdocumented as of this encounter (statuses as of 10/05/2024) Medications Venlafaxine HCl ER 150 MG Oral Capsule Extended Release 24 Hour (Effexor XR)Indications: Depression with anxiety TAKE 1 CAPSULE BY MOUTH ONCE DAILY. DO NOT CUT, CRUSH OR CHEW. 90 Capsule 1 2 Active Complete Oral Capsule Therapy Pack Take 1 Tablet by mouth in the morning. Active Famotidine 20 MG Oral Tablet (Pepcid) Take 1 Tablet by mouth in the morning. 3 Active Albuterol Sulfate 108 (90 Base) MCG/ACT Inhalation Aerosol Powder Breath Activated Inhale 2 Puffs by mouth every 6 hours as needed for Shortness of Breath. 2 Active Acetaminophen 325 MG Oral Tablet (Tylenol) Take 3 Tablets by mouth every 6 hours. 30 Tablet 4 Active Ibuprofen 600 MG Oral Tablet (Motrin) Take 1 Tablet by mouth every 6 hours. 30 Tablet 4 Active NIFEdipine ER 30 MG Oral Tablet Extended Release 24 Hour (Adalat CC) Take 1 Tablet by mouth in the morning. 60 Tablet 3 4 Active NIFEdipine ER 60 MG Oral Tablet Extended Release 24 Hour (Adalat CC) Take 1 Tablet by mouth every night at bedtime. 60 Tablet 3 4 Active documented as of this encounter (statuses as of 10/05/2024) Active Problems Problem Noted Date Diagnosed Date Adjustment disorder 09/30/2023 Uterine rupture 09/28/2023 Hemorrhagic shock 09/28/2023 Lactic acidosis 09/28/2023 S/P hysterectomy 09/28/2023 Acute blood loss anemia 09/28/2023 Acute respiratory failure with hypoxia and hyper capnia 09/28/2023 On mechanically assisted ventilation 09/28/2023 Hypocalcemia 09/28/2023 Pain of upper abdomen 09/27/2023 Incarcerated ventral hernia 09/27/2023 Anxiety state 03/12/2015 Obesity, Class III, BMI 40-49.9 (morbid obesity) 06/06/2011 documented as of this encounter (statuses as of 10/05/2024) Resolved Problems Problem Noted Date Diagnosed Date Resolved Date Placenta accreta 09/28/2023 09/28/2023 25 weeks gestation of 09/28/2023 09/28/2023 Single liveborn, [facility] in [facility], delivered by section 05/31/2016 11/12/2017 care following delivery 05/31/2016 11/12/2017 ADVANCE DIRECTIVE INFORMATION 05/13/2016 11/12/2017 Overview (08/18/2011): No, Advance Directive brochure offered , patient declined. GBS (group B streptococcus) infection 05/11/2016 05/11/2016 Positive GBS test 05/07/2016 09/29/2017 LGA (large for gestational a ge) fetus affecting management of mother 04/14/2016 6 Overview (04/21/2016): 32w6d: 2953gm (6lb 8oz): >95th percentile Maternal morbid obesity, antepartum 04/14/2016 09/29/2017 Previous delivery, antepartum 10/09/2015 06/10/2016 Overview (12/12/2015): First twins, loss of one baby. Found to have no amniotic fluid, delivered at 28 weeks. Baby lived 6 months. Per MFM: She would NOT be a Betsy Candidate due to the delivery having been a twin and yes even though she lost twin A early. I did verify this with Dr. Vazquez who agreed Supervision of high-risk 10/09/2015 06/10/2016 Overview (03/17/2016): 03/17/2016 Tdap Vaccine administered per clinic protocol. Pt given VIS(vaccine information sheet) Rhonad Meier RN GBS (group B Streptococcus c arrnehal), +RV culture, currently 04/17/2014 05/17/2014 Abnormal glucose complicating 02/21/2014 05/17/2014 Overview (03/21/2014): Elevated glucola at 28 weeks, 3hr GTT ordered-- WNL Previous delivery, antepartum condition or complication 10/17/2013 06/10/2016 Overview (05/11/2016): x2 Planning to [place] [facility], would like to attempt again for ease of caring of and 2 year old son. Has been very satisfied with care at [facility]. Undecided about future pregnancies. Obesity complicating 09/19/2013 06/10/2016 Overview (05/04/2016): BMI: 59.91 kg/m² at NOB visit -early 1hr gtt -b/l preeclamptic labs and 24hr urine protein-- completed -MFM anatomy sono -growth sono q 6 weeks after 20weeks -NST 2x weekly beginning at 32weeks--> BPPs twice weekly per Dr. Stubbs, per Dr. Vazquez -anesthesia consult -delivery by 40wks High-risk 09/19/2013 05/17/20 14 Overview (09/19/2013): Morbid obesity, h/o PTD at 28wks with abruption, PPROM, anhydramnios MFM consult History of section complicating 09/19/2013 05/17/2014 Overview (02/07/2014): Pt desires in [place]. Referral placed to OB at [facility] [place] 02/07/2014 Antepartum hemorrhage, abrup kira placentae, and placenta previa 08/26/2011 09/19/2013 GBS (group B Streptococcus c efra), +RV culture, currently 08/21/2011 09/19/2013 Overview (08/21/2011): RV probe positive for GBS at 28 weeks. Will treat when in labor per protocol. Poor growth, affecting management of mother, antepartum condition or complication 08/18/2011 09/19/2013 Delayed delivery after spont aneous or unspecified rupture of membranes, antepartum 08/18/2011 09/19/2013 ADVANCE DIRECTIVE INFORMATION 07/02/2011 08/18/2011 Overview (06/05/2011): No, Advance Directive brochure offered , patient declined. ANHYDRAMNIOS 06/09/2011 09/19/2013 Overview (07/03/2011): As of 06/06/11 pt was seen in M consultation with the finding of anhydramnios noted on U/S. At that time the patient understood that there was no fluid around the fetus. It does appear that there is a bladder. Discussed with the patient possible causes of anyhydramnios including rupture of membranes, absent kidneys, infection, abruption and aneuploidy. The possibility of pulmonary hypoplasia was also reviewed. Pt understands that it would be difficult to do an amniocentesis in an attempt to inject fluid into the uterine cavity and then send it to the lab for a karyotype. From 06/06/11 the patient was not interested in this option. The option of termination was also discussed which the patient did not want at that time. F/u U/S was scheduled in 3 weeks. Update: As of 07/02/11 at 20 6/7 weeks gestation, f/u U/S demonstrated a persistent absence of amniotic fluid, and a nuchal fold at 64 mm. The bladder is seen and the patient continues to deny leakage of fluid. The pt understands that with the various concerns noted on U/S, the possibility for aneuploidy is significant. At this point the option of genetic testing via a PUBS was discussed with the patient which would give a 1% risk for complications including a potential loss of the . After a through discussion of her options, pt has decided to wait for undergoing an invasive testing at this time and will consider doing so at approximately 26 weeks gestation when she has scheduled a f/u visit with MFM. Supervision of other high-risk 06/06/2011 09/19/2013 Overview (11/19/2015): ICD-10 update of inactive term Twin with lo ss and retention of one fetus, antepartum 05/07/2011 09/19/2013 Overview (07/03/2011): Transferred care from Dr. Link's office at 12 weeks gestation due to a demise of twin A documented at 8 1/7 weeks gestation. documented as of this encounter (statuses as of 10/05/2024) Immunizations Name Administration Dates Next Due PPD 09/30/2016,09/21/2016 Seasonal Influenza Vac., MDV, IM, 0.5 mL (Fluzon e) 05/10/2014 Seasonal Influenza, PF, 6 M & above, IM , (FluLaval or Fluzone) 07/12/2018,09/29/2017 Seasonal Influenza, Quadrivalent, No Preserve, I M 06/10/2016 TDAP (age 10 and older)(Boostrix) 03/17/2016, TDAP, Age 7 and older, IM (Adacel) 08/16/2005 documented as of this encounter Social History Tobacco Use Types Packs/Day Years Used Date Smoking Tobacco: Former Cigarettes 0.5 11 0 11/14/2002 - 11/14/2013 Smokeless Tobacco: Never Comments:quit as of 11/2013 Alcohol Use Standard Drinks/Week Comments Not Currently 0 (1 standard drink = 0.6 oz pure alcohol) occasional prior to knowledge of PHQ-2 Answer Date Recorded PHQ Adult Total Score 0 10/06/2023 Hunger Vital Sign Answer Date Recorded Within the past 12 months, y ou worried that your food would run out before you got the money to buy more. Never true 10/06/19 24 Within the past 12 months, t he food you bought just didn't last and you didn't have money to get more. Never true 10/06/2023 Childcare Answer Date Recorded Do you feel overwhelmed with taking care of a child, family member or friend? No 10/06/2023 Does your family need help f inding childcare? (Household - for ages 0-17 years) Not on file 10/06/2023 Clothing Answer Date Recorded Have you been unable to get clothing when it was really needed? No 10/06/2023 Is your family able to get c lothes or diapers when needed? (Household - for ages 0-17 years) Not on file 10/06/2023 Personal Safety Answer Date Recorded Do you feel unsafe or have concerns for your saf ety? No 10/06/2023 Do you have concerns for you r family's safety? (Household - for ages 0-17 years) Not on file 10/06/2023 Utilities Answer Date Recorded Do you have trouble paying y our heating, water, or electric bill? No 10/06/2023 Is your family able to pay t he heat, water, or electric bill? (Household - for ages 0-17 years) Not on file 10/06/2023 Does your family have access to good internet? (Household - for ages 0-17 years) Not on file 10/06/2023 Employment Status Answer Date Recorded Are you unemployed or without regular income? No 10/06/2023 Does the household have a re gular source of income? (Household - for ages 0-17 years) Not on file 10/06/2023 Social Connections Answer Date Recorded How often do you feel lonely or isolated from th ose around you? Never 10/06/2023 Financial Resource Strain Answer Date R ecorded Do you have any trouble payi ng for your medications, or do you think you might in the future? No 10/06/2023 Does your family have troubl e paying for medicine? (Household - for ages 0-17 years) Not on file 10/06/2023 Transportation Needs Answer Date Record ed READ ONLY Do you have troubl e getting a ride to medical visits or work? Never True 10/06/2023 Does your family have a hard time getting a ride to doctors visits? (Household - for ages 0-17 years) Not on file 10/06/2023 Has lack of transportation k ept you from medical appointments, meetings, work, or from getting things needed for daily living? Check all that apply. (Adult - for ages 18 years and over) Not on file 10/06/2023 Do you (or your family) have trouble finding or paying for a ride (transportation)? (Household - for ages 0-17 years) Not on file 10/06/2023 Housing Stability Answer Date Recorded Do you currently live in a s helter or have no steady place to sleep at night? No 10/06/2023 READ ONLY Do you think you a re at risk of becoming homeless? No 10/06/2023 Does your family worry about paying for your home or becoming homeless? (Household - for ages 0-17 years) Not on file 0 10/06/2023 Are you homeless or worried that you might be in the future? (Adult - for ages 18 years and over) Not on file Are you (or your family) amaad eless or worried that you might be in the future? (Household - for ages 0-17 years) Not on file Food Insecurity Answer Date Recorded Do you need food for this week? No 10/06/2023 Are you able to get enough f ood for your family? (Household - for ages 0-17 years) Not on file 10/06/2023 Does your family need food t his week? (Household - for ages 0-17 years) Not on file 10/06/2023 Do you always have enough fo od for your family? (Household - for ages 0-17 years) Not on file 10/06/2023 Food Insecurity Answer Date Recorded Within the past 12 months, y ou worried that your food would run out before you got the money to buy more. Never true 10/06/19 24 Within the past 12 months, t he food you bought just didn't last and you didn't have money to get more. Never true 10/06/2023 Do you need food for this week? No 10/06/2023 Comments No Sex and Gender Information Value Date Recorded Sex Assigned at Female 09/22/2023 3:30 PM EST Legal Sex Female 7:10 AM EST Gender Identity Female 09/22/2023 3:30 PM EST Sexual Orientation Straight 09/22/2023 3: 30 PM EST Occupation Industry Job Start Date Job End Date [employer] Not on file Not on file Not on file documented as of this encounter Plan of Treatment Upcoming Encounters Date Type Department Care Team (Late st Contact Info) Description 10/11/2024 10:30 AM EST Office Visit Oral Maxillofacial Surgery, [place] [address] [place] [address] Martina Quintero, DDS [address] [place] [address] 11/10/2024 12:00 PM EDT Office Visit General Surgery, [place] [address], [place] [id number] Yina Savage MD [address] [place] [address] Health Maintenance Due Date Last Done Comments Hepatitis B Vaccine (1 of 3 - 19+ 3-dose series) 2004 Pneumococcal Vaccine: Pediatrics (0 to 5 Years) and At-Risk Patients (6 to 18 Years and 19+ Years) (1 of 2 - PCV) 2004 HPV/Co-Test 2015 Cervical Cancer Screening 09/29/2020 Pap Smear 09/29/2020 09/29/2017, 09/19/2013 COVID-19 Vaccine ( season) 2024 Influenza Vaccine (FLU shot) (#1) 2024 07/12/2018, 07/12/2018, 09/29/2017, Additional history exists Depression Screening 10/06/2024 10/06/2023 DTap/Tdap Vaccines (4 - Td or Tdap) 03/17/2026 03/17/2016, 05/10/2014, 08/16/2005 Diabetes Screening 05/01/2027 05/01/2024, 0 09/30/2023, 09/29/2023, Additional history exists Hepatitis C Screening Completed 07/23/2023 HPV (Gardasil) Vaccine Aged Out No lo nger eligible based on patient's age to complete this topic MENINGOCOCCAL (MENACTRA/MENVEO) Aged Out No longer eligible based on patient's age to complete this topic Meningitis B Vaccine (Bexsero/Trumemba) Aged Out No longer eligible based on patient's age to complete this topic documented as of this encounter Medical Devices Not on filedocumented as of this encounter Procedures Procedure Name Priority Date/Time Associated Diagnosis Comments RADIOLOGY EXAM - CT (IMAGES ONLY, NO REPORT) Routine 05/05/2024 10:00 AM EDT documented in this encounter Results * RADIOLOGY EXAM - CT (IMAGES ONLY, NO REPORT) (05/05/2024 10:00 AM EDT) 05/05/2024 9:56 AM EDT Narrative Scheduling, Silent - 10/04/2024 1:16 PM EST This is an imaging study not interpreted or resulted by a [facility] healthcareer or [facility] contracted radiologist. us Julio Rain MD RAD CT Final Result documented in this encounter Advance Directives * Full Code (Latest Code Status on File) Date Activated Date Inactivated Comments 09/28/2023 2:26 AM 10/02/2023 8:01 PM This order r eflects the patients wishes and were consensually agreed upon. Question Answer Comments Discussion of Advance Directives occurred with: Patient * Full Code Date Activated Date Inactivated Comments 09/27/2023 6:09 PM 09/28/2023 2:26 AM This order r eflects the patients wishes and were consensually agreed upon. Question Answer Comments Discussion of Advance Direct william occurred with: Not Discussed due to patient's condition * Full Code Date Activated Date Inactivated Comments 05/29/2016 6:47 AM 05/31/2016 3:56 PM This order reflects the patients wishes and were consensually agreed upon. * Full Code Date Activated Date Inactivated Comments 05/08/2014 6:34 AM 05/09/2014 4:07 PM This order r eflects the patients wishes and were consensually agreed upon. * Full Code Date Activated Date Inactivated Comments 08/19/2011 1:33 PM 08/30/2011 4:24 PM This order re flects the patients wishes and were consensually agreed upon. Care Teams Explosive Expert Relationship Specialty Start Date End Date Idalia Reed MD PCP - General Internal Medicine 03/28/24 05/07/24 documented as of this encounter
--- OUTSIDE RECORDS SUMMARY | 2024-12-26 22:57 | External Medical Summary | Summary of Care ---
Author Name Unknown Organization [facility] Address [address] [place] [address] Phone [phone] Care Team Providers Care Digital Developer Name Role Phone Leslee Marion Primary Care Provider [phone]- [phone] Reason for Visit * Reason Comments Evaluation "Need to get this to oth out" * Evaluate & Treat - Unlimited Visits (Within 30 days (routine)) - Authorized Specialty Diagnoses / Procedures Referred By Susan arce Referred To Contact Oral/Maxillofacial Surgery / Oral Maxillary Surgery Diagnoses Extraction of tooth needed Lio Blanc, DMD [address] [place] [address] Phone: tel: fax: Referral ID Status Reason Start Date Expiration Date Visits Requested Visits Authorized [id number] Authorized Specialty Services Required 12/29/[phone] Encounter Details Date Type Department Care Team (Latest Contact Info) Description 10/11/2024 10:30 AM EST Office Visit Oral Maxillofacial Surgery, [place] [address] [place] [address] Martina Quintero DDS [address] [place] [address] Dental caries*; Dental caries extending into pulp; Extraction of tooth needed [K08.9] Allergies No known active allergiesdocumented as of this encounter (statuses as of 10/11/2024) Medications Venlafaxine HCl ER 150 MG Oral Capsule Extended Release 24 Hour (Effexor XR)Indications:D epression with anxiety TAKE 1 CAPSULE BY MOUTH ONCE DAILY. DO NOT CUT, CRUSH OR CHEW. 90 Capsule 1 2 Active Additional Information Patient not taking.Reported on 10/11/2024 Complete Oral Capsule Therapy Pack Take 1 [...] the morning. 60 Tablet 3 4 Active Additional Information Patient not taking.Reported on 10/11/2024 NIFEdipine ER 60 MG Oral Tablet Extended Release 24 Hour (Adalat CC) Take 1 Tablet by mouth every night at bedtime. 60 Tablet 3 4 Active Additional Information Patient not taking.Reported on 10/11/2024 busPIRone HCl 10 MG Oral Tablet (Buspar) Take 1 Tablet by mouth in the morning and 1 Tablet at noon and 1 Tablet before bedtime. Active Escitalopram Oxalate 10 MG Oral Tablet (Lexapro) Take 1 Tablet by mouth in the morning. Active Ozempic (1 MG/DOSE) 2 MG/1.5ML Subcutaneous Solution Pen-injector (Semaglutide (1 MG/DOSE)) Inject 1 mg under the skin once a week. Active Chlorhexidine Gluconate 0.12 % Mouth/Throat Solution (Periogard) Swish and spit 15 mL in the morning and 15 mL before bedtime. Use 2 times a day. Use 1/2 oz. after brushing and flossing. Swish for 30 seconds and spit.. Do not start before October 13, 2024. 473 mL 10/11/2024 11:15 AM EST 5 Active Ibuprofen 800 MG Oral Tablet (Motrin) Take 1 Tablet by mouth every 6 to 8 hours as needed for severe pain for up to 7 days. 28 Tablet 10/11/2024 11:15 AM EST 10/19/19 25 Active Amoxicillin 500 MG Oral Capsule (Amoxil) Take 1 Capsule by mouth in the morning and 1 Capsule at noon and 1 Capsule before bedtime. Do all this for 7 days. 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 I did verify this with Dr. Vazquez who agreed Supervision of high-risk 10/09/2015 06/10/2016 Overview (03/17/2016): 03/17/2016 Tdap Vaccine administered per clinic protocol. Pt given VIS(vaccine information sheet) Rhonda Meier RN GBS (group B Streptococcus c arrier), +RV culture, currently 04/17/2014 05/17/2014 Abnormal glucose complicating 02/21/2014 05/17/2014 Overview (03/21/2014): Elevated glucola at 28 weeks, 3hr GTT ordered-- WNL Previous delivery, antepartum condition or complication 10/17/2013 06/10/2016 Overview (05/11/2016): x2 Planning to deliver at [facility], would like to attempt again for ease of caring of and 2 year old son. Has been very satisfied with care at [facility]. Undecided about future pregnancies. Obesity complicating 09/19/2013 [...] 09/19/2013 05/17/2014 Overview (02/07/2014): Pt desires in [place]. Referral placed to OB at [facility] on 02/07/2014 Antepartum hemorrhage, abrup kira placentae, [...] she has scheduled a f/u visit with M. Supervision of other high-risk 06/06/2011 09/19/2013 Overview (11/19/2015): ICD-10 update of inactive term Twin with lo ss and retention of one fetus, antepartum 05/07/2011 09/19/2013 Overview (07/03/2011): Transferred care from Dr. Link's office at 12 weeks gestation due to a demise of twin A documented at 8 1/7 weeks gestation. documented as of this encounter (statuses as of 10/11/2024) Immunizations Name Administration Dates Next Due PPD [...] Used Date Smoking Tobacco: Every Day Cigarettes 0.7 18.2 Started: 11/14/2002; Last attempted to quit: 11/14/2013 Smokeless Tobacco: Never Tobacco Cessation:Ready to Q uit: Not Asked; Counseling Given: Not Answered Alcohol Use Standard Drinks/Week Comments Not Currently 0 (1 standard drink = 0.6 oz pur e alcohol) PHQ-2 Answer Date Recorded PHQ Adult Total [...] on file Are you (or your family) amada eless or worried that you might be [...] food for this week? No 10/06/2023 Comments Unknown Sex and Gender Information Value Date Recorded Sex Assigned at Female 09/22/2023 3:30 PM EST Legal Sex Female 7:10 AM EST Gender Identity Female 09/22/2023 3:30 PM EST Sexual Orientation Straight 09/22/2023 3: 30 PM EST Occupation Industry Job Start Date Job End Date [employer] Not on file Not on file Not on file documented as of this encounter Last Filed Vital Signs Vital Sign Reading Time Taken Comments Blood Pressure 131/92 10/11/2024 10:14 AM EST Pulse 74 10/11/2024 10:14 AM EST Temperature 36.7 °C (98.1 °F) 10/11/2024 10:[address] Respiratory Rate 16 10/11/2024 10:14 AM EST Oxygen Saturation 95% 10/11/2024 10:14 AM EST Inhaled Oxygen Concentration - - Weight - - Height - - Body Mass Index - - documented in this encounter Progress Notes * Martian Quintero, MERRY - 10/11/2024 12:45 PM EST Outpatient Visit Department of Oral & [place]ill[place] [address] Name: Ilana Pond : 1985 Date: 10/11/2024 Operative Note Pre-op Diagnosis: ICD-10-CM 1. Dental caries K02.9 2. Dental caries extending into pulp K02.9 Post-op Diagnosis: Same Operation: extraction of tooth #18 Provider: Martina Quintero Anesthesia: Local anesthesia Apparent Intraoperative Complications: none Specimens: none Patient Condition: good Disposition: home under self care Indications and History: Ilana Pond is a 39 year old female who presents with: ICD-10-CM 1. Dental caries K02.9 2. Dental caries extending into pulp K02.9 All pertinent medical history and medications were reviewed, as documented in the H&P, and confirmed or updated. Please refer to Exam Day Notes, Escort: Yes, and Permit: Yes print graphic designer Staff member notified me of the ambient humidity level before electing to proceed with the procedure. Sterility of instruments was confirmed by lack of water, condensation, or damaged packaging on visual inspection. The decision was made to proceed with the procedure. Description of Operation: The patient was accurately identified and brought to the procedure room, and the provider initiateda timeout with the team and identified patient by full name and date of as Ilana Pond, 1985. The correct operative sites have been identified and marked accordingly and verified by the surgical team. The Patient verbalized understanding and agrees with treatment plan. An opportunity for questions was given. All questions were answered to satisfaction. The consent was then signed, as witnessed by the operative team. Appropriate eye protection placed. 1 carpules of 2% lidocaine with 1:100k epi was injected as blocks and infiltration and 1 carpules of 4% septocaine with 1:100k epi was injected as infiltration Surgical Extractions: Bite block and throat drape placed.Local anesthesia was administered using blocks and infiltrates. After sufficient local anesthesia the Gingival fibers surrounding teeth #18 were severed tissue using a Periostal Elevator,sulcular incision buccal of teeth18 using 15 blade. a full-thickness mucoperiosteal flap with a release at the site of tooth # 18 and a buccal trough was created ignorer to section the tooth,tooth #18 was elevated with appropriate elevators and was extracted with the appropriate forceps. A bone file was used to smooth any bone irregularities.The subsequent extraction socket was curettage, irrigated with copious amount of normal saline. No complications associated with the procedure and the patient was provided with both written and verbal postoperative instructions. Post op instructions were reviewed in detail, and indications to follow up for evaluation were reviewed in detail. All questions were welcomed and answered. Throughout the procedure described above, throat shield (4 x 4 gauze) and mouth prop were utilized.Both were removed following the procedure. Eye protection removed following all portions of the procedure. Post-operative Plan Reassurance provided. Discussed post-operative instructions. Questions invited and answered. The patient and escort demonstrated understanding and agreed. Diet: Puree, Advance to Soft Mechanical as Tolerated, and Avoid Straws for 7 days Activity: No strenuous activity and No heavy lifting Plan Chlorhexidine Gluconate 0.12 % Mouth/Throat Solution (Periogard) Ibuprofen 800 MG Oral Tablet (Motrin) Amoxicillin 500 MG Oral Capsule (Amoxil) Follow up PRN Note by: Martina Quintero DDS * Martina Quintero DDS - 10/11/2024 12:43 PM EST Outpatient Visit Department of Oral & [place]illof[place] [address] Name: Ilana Pond : 1985 Date: 10/11/2024 Patient ID and History HPI: Ilana Pond is a 39 year old female presents with a referral from Lio Blanc DMD for extraction of tooth #18. Pt have intermittens pain. Pt denies F/C/N/V. Subjective Subjective PMH: Past Medical History: Diagnosis Date Adult body mass index 45.0-49.9 06/05/11 ACTUAL 46.6 PSH: Past Surgical History: Procedure Laterality Date ANESTH, VAGINAL DELIVERY 05/08/2014 ANESTHESIA FOR VAGINAL DELIVERY ONLY performed by Nesha Aguila DO at [facility] ATTEMPT DELIV W/POSTPART CARE 05/09/2014 DELIVERY AND CARE FOLLOWING ATTEMPTED VAGINAL performed by Ronen Daily MD at [facility] DELIVERY ONLY W/ 08/26/2011 DELIVERY AND CARE performed by ESTUARDO LUNA at [facility] DELIVERY ONLY W/ 08/26/2011 DELIVERY AND CARE performed by ESTUARDO LUNA at [facility] DELIVERY ONLY W/ N/A 05/29/2016 DELIVERY AND CARE performed by Estuardo Luna MD at [facility] EXPLORATION OF ABDOMEN N/A 09/27/2023 EXPLORATORY LAPAROTOMY performed by Yina Savage MD at [facility] Meds: Current Outpatient Medications Medication Sig Dispense Refill Amoxicillin 500 MG Oral Capsule (Amoxil) Take 1 Capsule by mouth in the morning and 1 Capsule at noon and 1 Capsule before bedtime. Do all this for 7 days. 21 Capsule 0 [START ON 10/13/2024] Chlorhexidine Gluconate 0.12 % Mouth/Throat Solution (Periogard) Swish and spit 15 mL in the morning and 15 mL before bedtime. Use 2 times a day. Use 1/2 oz. after brushing and flossing. Swish for 30 seconds and spit.. Do not start before October 13, 2024. 473 mL 0 Ibuprofen 800 MG Oral Tablet (Motrin) Take 1 Tablet by mouth every 6 to 8 hours as needed for severe pain for up to 7 days. 28 Tablet 0 busPIRone HCl 10 MG Oral Tablet (Buspar) Take 1 Tablet by mouth in the morning and 1 Tablet at noonand 1 Tablet before bedtime. Escitalopram Oxalate 10 MG Oral Tablet (Lexapro) Take 1 Tablet by mouth in the morning. Ozempic (1 MG/DOSE) 2 MG/1.5ML Subcutaneous Solution Pen-injector (Semaglutide (1 MG/DOSE)) Inject 1 mg under the skin once a week. Acetaminophen 325 MG Oral Tablet (Tylenol) Take 3 Tablets by mouth every 6 hours. 30 Tablet 0 Ibuprofen 600 MG Oral Tablet (Motrin) Take 1 Tablet by mouth every 6 hours. 30 Tablet 0 Famotidine 20 MG Oral Tablet (Pepcid) Take 1 Tablet by mouth in the morning. NIFEdipine ER 30 MG Oral Tablet Extended Release 24 Hour (Adalat CC) Take 1 Tablet by mouth in the morning. (Patient not taking: Reported on 10/11/2024) 60 Tablet 3 NIFEdipine ER 60 MG Oral Tablet Extended Release 24 Hour (Adalat CC) Take 1 Tablet by mouth every night at bedtime. (Patient not taking: Reported on 10/11/2024) 60 Tablet 3 Albuterol Sulfate 108 (90 Base) MCG/ACT Inhalation Aerosol Powder Breath Activated Inhale 2 Puffs by mouth every 6 hours as needed for Shortness of Breath. (Patient not taking: Reported on 10/11/2024) Complete Oral Capsule Therapy Pack Take 1 Tablet by mouth in the morning. (Patient not taking: Reported on 10/11/2024) Venlafaxine HCl ER 150 MG Oral Capsule Extended Release 24 Hour (Effexor XR) TAKE 1 CAPSULE BY MOUTH ONCE DAILY. DO NOT CUT, CRUSH OR CHEW. (Patient not taking: Reported on 10/11/2024) 90 Capsule 1 No current facility-administered medications for this visit. All: Review of patient's allergies indicates: No Known Allergies Fhx: Family History Problem Relation Name Age of Onset Arthritis Grandmother (Paternal) Diabetes Grandmother (Paternal) insulin dependent Stroke Grandmother (Paternal) Obesity Grandmother (Paternal) Cancer Grandmother (Maternal) cervical Diabetes Grandmother (Maternal) insulin dependent Obesity Grandmother (Maternal) Cancer Uncle (Unspecified) mother's brother- melanoma Diabetes Mother borderline diabetic- controlled with po meds Obesity Mother Diabetes Uncle (Unspecified) mother's brother- controlled with po meds Mental Disorder Uncle (Unspecified) bipolar/schizoprhenic Thyroid Disorder Aunt (Unspecified) hypothyroidism Obesity Father Cancer Father B cell lymphoma Obesity Grandfather (Maternal) Obesity Grandfather (Paternal) Obesity Sister x2 SHx: Social History Socioeconomic History Marital status: Single Spouse name: Jan Hackett ([facility]) Number of children: 0 Years of education: 12 Highest education level: Not on file Occupational History Occupation: [employer] Comment: [employer] Tobacco Use Smoking status: Every Day Current packs/day: 1.00 Average packs/day: 0.7 packs/day for 18.2 years (12.7 ttl pk-yrs) Types: Cigarettes Start date: 11/14/2002 Last attempt to quit: 11/14/2013 Smokeless tobacco: Never Vaping Use Vaping status: Not on file Substance and Sexual Activity Alcohol use: Not Currently Drug use: No Comment: history of marijuana use in the past Sexual activity: Yes Partners: Male Other Topics Concern Service Not Asked Blood Transfusions Not Asked Caffeine Concern Not Asked Occupational Exposure Not Asked Hobby Hazards Not Asked Sleep Concern No Stress Concern No Weight Concern Not Asked Special Diet Not Asked Back Care Not Asked Exercise Not Asked Bike Helmet Not Asked Seat Belt No Self-Exams Not Asked Social History Narrative Not on file Social Needs Financial Resource Strain: No (04/28/2024) Received from [facility] Financial Resource Strain My family needs diapers, clothing, and/or car seats.: No Food Insecurity: No (05/07/2024) Received from [facility] Food Insecurity I want help getting food for myself/my family or applying for assistance.: No Transportation Needs: No (05/07/2024) Received from [facility] Transportation Needs In the last 6 months, I or my child had to go without health care or other necessary items because we didn't have a way to get there.: No Social Connections: Socially Integrated (10/06/2023) Social Connections How often do you feel lonely or isolated from those around you? (Adult - for ages 18 years and over): Never Housing Stability: Low Risk (10/06/2023) Housing Stability Do you currently live in a chcf or have no steady place to sleep at night? (Adult - for ages 18 years and over): No Do you think you are at risk of becoming homeless? (Adult - for ages 18 years and over): No Does your family worry about paying for your home or becoming homeless? (Household - for ages 0-17 years): Not on file Are you homeless or worried that you might be in the future? (Adult - for ages 18 years and over): Not on file Are you (or your family) homeless or worried that you might be in the future? (Household - for ages0-17 years): Not on file Review of Systems: Respiratory: negative for shortness of breath, coughing, wheezing Cardiovascular: negative for shortness of breath, chest pain, palpitations Functional Capacity: can walk up two flights of stairs without stopping (Otherwise focused ROS is negative, unless noted in HPI) Objective Objective Filed Vitals: 10/11/24 1014 BP: 131/92 Pulse: 74 Resp: 16 Temp: 36.7 °C (98.1 °F) TempSrc: Infrared SpO2: 95% Estimated body mass index is 40.7 kg/m² as calculated from the following: Height as of 10/04/24: 1.651 m (5' 5"). Weight as of 10/04/24: 110.9 kg (244 lb 9.6 oz). General Appearance: cooperative, appears stated age, well-appearing, well- developed, normal eye contact, no acute distress HEENT: H: no lesions, ulcerations, swelling, erythema, tenderness, and asymmetry E: EOMI, PERRL, sclera white w/o injection, conjunctiva pink E: hearing intact, no otorrhea N: nares patent, no rhinorrhea, mucosa moist T: supple, non-tender, soft, full range of motion, no significant adenopathy Oral Cavity/Oropharynx: Dentition: gross caries #18 TMJ: no click, crepitus, or palpable pain, PAPITO = 45, and Deviation: 0 Soft Tissues and Mucosa: WNL Otherwise, lips, buccal mucosa, gingiva, FOM, tongue, oropharynx without erythema, tenderness, ulceration, or lesions. Chest/Lungs: normal respiratory effort, symmetric chest rise Cardiac: Regular rate & rhythm GI: soft, non-tender, non-distended, no rebound or guarding Extremities: no edema, no cyanosis, less than 2 second capillary refill Neurologic: alert & oriented x 3 with fluent speech, CNII-XII intact Musculoskeletal: ambulates without difficulty, no gross deformities, adequate ROM Imaging: Panoramic Imaging: images personally reviewed and interpreted Date: 10/11/2024 Teeth: gross caries #18 Periodontal Bone: no generalized periodontal bone loss Maxillary Sinus: clear maxillary sinus bilaterally Condyles: seated in fossa Maxilla: no bony pathology Mandible: no bony pathology Assessment & Plan Ilana Pond is a 39 year old female who presents with referral for extraction of tooth #18.. ICD-10-CM 1. Dental caries K02.9 2. Dental caries extending into pulp K02.9 - Discussed treatment options, risks, and benefits with patient and/or parent/guardian/POA, including, but not limited to: local anesthesia, no treatment, bleeding, swelling, infection, pain, permanent/temporary numbness/altered sensation of lower lip, chin, gums, teeth, tongue, oral-antral communication, displacement of teeth into sinus or infratemporal fossa, jaw fracture, retained root tips and need for further surgery in the future. Questions invited and answered. the patient demonstrated understanding. - the patient chose to proceed with extraction of teeth # 18 under local anesthesia Plan: - extraction of teeth # 18 under local anesthesia Plan Chlorhexidine Gluconate 0.12 % Mouth/Throat Solution (Periogard) Ibuprofen 800 MG Oral Tablet (Motrin) Amoxicillin 500 MG Oral Capsule (Amoxil) No follow-ups on file. Note by: Martina Quintero DDS documented in this encounter Plan of Treatment Upcoming Encounters Date Type Department Care Team (Late st Contact Info) Description 11/10/2024 12:00 PM EDT Office Visit General Surgery[address] [address] Yina Barron MD [address] [place] [address] Health Maintenance Due Date Last Done Comments [...] Not on filedocumented as of this encounter Visit Diagnoses Diagnosis Dental caries- Primary Unspecified dental caries Dental caries extending into pulp Extraction of tooth needed [K08.9] documented in this encounter Advance Directives * [...] and were consensually agreed upon. Care Teams Digital Developer Relationship Specialty Start Date End Date Leslee Marion CRNP [facility] [place] [address] [address] PCP - General Nurse Practitioner 05/08/24 documented as of this encounter
--- OUTSIDE RECORDS SUMMARY | 2024-12-26 22:57 | External Medical Summary | Summary of Care ---
Author Name Unknown Organization [facility] Address [address] [address] Care Team Providers Care Starch Factory Laborer Name Role Phone Leslee Marion Primary Care Provider Encounter Details Date Type Department Care Team (Late st Contact Info) Description 11/24/2024 Patient Message [facility] [address] [place] [phone] Leslee Marion FNP [address] [place] [address] Medication Allergies No known active allergiesdocumented as of [...] EDT Office Visit [facility] [address] [facility] [place] [phone] Leslee Marion FNP [address] [place] [address] Health Maintenance Due Date [...] basis. documented as of this encounter Insurance [employer] [place], [place] [id number] documented as of this encounter Advance Directives [...] and agreed to: Full Code Care Teams Starch Factory Laborer Relationship Specialty Start Date End Date Lelsee Marion FNP [address] [place] [address] PCP - General FAMILY PRACTICE 05/04/23 documented as of this encounter
--- OUTSIDE RECORDS SUMMARY | 2024-12-26 22:57 | External Medical Summary | Summary of Care ---
Author Name Unknown Organization [facility] Address [address] [address] Care Team Providers Care Slide Attendant Name Role Phone Leslee Marion Primary Care Provider Encounter Details Date Type Department Care Team (Late st Contact Info) Description 11/06/2024 Patient Message Boy [facility] [address] [place] [phone] Leslee Marion FNP [address] [place] [address] Infection Allergies No known active allergiesdocumented as of this encounter (statuses as of 11/14/2024) Medications ferrous sulfate 325 (65 Fe) MG [...] as of this encounter (statuses as of 11/14/2024) Active Problems Problem Noted Date Diagnosed Date [...] as of this encounter (statuses as of 11/14/2024) Resolved Problems Problem Noted Date Diagnosed Date [...] as of this encounter (statuses as of 11/14/2024) Immunizations Immunization Administration Dates Next Due Influenza [...] EDT [facility] Visit [facility] [address] [place] [phone] Leslee Marion, PAPER MACHINE SUPERVISOR [address] [place] [address] Health Maintenance Due Date [...] an individualized treatment (COPD) goal for Ilana Lea Denizleon: Quitting smoking is the most important [...] This is an individualized lifestyle goal for Ilanarebecca Guzmanalexleon: Please be sure to keep up-to-date on recommended immunizations. For example, this would include a yearly influenza vaccine. Immunization status can be seen by looking at the Health Maintenance sections of your e[employer], Plan of Care, and any After Visit Summaries. Keep a regular sleep schedule Lifestyle No Leslee Marion FNP Note: This is an individualized lifestyle goal for Ilanarebecca Guzmanalexleon: Please maintain a regular sleep schedule. This [...] basis. documented as of this encounter Insurance [employer]/[place] [phone] documented as of this encounter Advance Directives [...] and agreed to: Full Code Care Teams Slide Attendant Relationship Specialty Start Date End Date Leslee Marion FNP [address] [place] [address] PCP - General FAMILY PRACTICE 05/04/23 documented as of this encounter
--- OUTSIDE RECORDS SUMMARY | 2024-12-26 22:58 | External Medical Summary | Summary of Care ---
Author Name Unknown Organization [facility] Address [address] [place] [address] Care Team Providers Care Livestock Nutrition Territory Manager Name Role Phone Leslee Marion Primary Care Provider Reason for Visit * Reason Comments Follow Up 3 month Ozempic chec k Foot Problem Possible corns on ea ch foot, the left foot is causing her pain. Encounter Details Date Type Department Care Team (Late st Contact Info) Description 08/29/2024 11:00 AM EST Office Visit [facility] [address] [place] [phone] Leslee Marion FNP [address] [place] [address] Prediabetes (Primary Dx); Encounter for weight management; Anxiety and depression; Medication management; [place] of foot Allergies No known active allergiesdocumented as of this encounter (statuses as of 08/29/2024) Medications ferrous sulfate 325 (65 Fe) MG [...] 7 DAYS. 3 mL 6 5 Active documented as of this encounter (statuses as of 08/29/2024) Active Problems Problem Noted Date Diagnosed Date [...] as of this encounter (statuses as of 08/29/2024) Resolved Problems Problem Noted Date Diagnosed Date [...] as of this encounter (statuses as of 08/29/2024) Immunizations Immunization Administration Dates Next Due Influenza [...] Sign Reading Time Taken Comments Blood Pressure 122/68 08/29/2024 10:52 AM EST Pulse 91 08/29/2024 10:52 AM EST Temperature 36.2 °C (97.2 °F) 08/29/2024 10:[address] Respiratory Rate - - Oxygen Saturation 96% 08/29/2024 10:52 AM EST Inhaled Oxygen Concentration - - Weight 113.9 kg (251 lb) 08/29/2024 10:52 AM EST Height 165.1 cm (5' 5") 08/29/2024 10:52 AM EST Body Mass Index 41.77 08/29/2024 10:52 AM EST documented in this encounter Patient Instructions * Patient Instructions* Leslee Marion FNP - 08/29/2024 11:00 AM EST Continue the 2mg dosing of the Ozempic. Bilateral feet corns removed successfully today. Please let me know if you develop anymore of them. Follow-up in 3 months or sooner if needed. It was very nice to see you in the office today! I hope we were able to address all your concerns during your visit. If you have anything you forgot to cover in the office today please feel free to reach out to me via telephone or e[employer]. You may get a survey in the mail and I would really love to have your feedback about our visit today in order to improve care to my patients. See you soon! ROSS Chávez documented in this encounter Progress Notes * Leslee Marion FNP - 08/29/2024 11:00 AM EST Images from the original note were not included. PATIENT: Ilana Pond : 1985 DATE OF SERVICE: 08/29/2024 CHIEF COMPLAINT: Chief Complaint Patient presents with Follow Up 3 month Ozempic check Foot Problem Possible corns on each foot, the left foot is causing her pain. Subjective HISTORY OF PRESENT ILLNESS: Ilana Pond is a 39-y.o. female Ilana is here today for the above. Prediabetes - on labs from 7 months ago. She has tried very hard over the years to lose weight withvarious diets and exercise regimens. Started Ozempic in May with weight at 272lbs and BMI at 45.26. Currently she is down to 251lbs with BMI of 41.77. Current dosing of Ozempic is 2mg which was just sent in last week so she has just started this dosing. Anxiety and depression - Continues to do extremely well since changing to Lexapro 10mg daily. Bilateral feet - She believes she has corns on bilateral feet which are bothering her. She has one on the plantar aspect of the right foot which is less painful than the one present on the left foot , plantar aspect. Bilateral corns removed using alcohol to cleanse both regions and a #15 blade to excise the corns from the plantar aspect of left and right foot. No blood loss and patient tolerated procedure well. Advised to watch for any signs or symptoms of infection. Right foot: Left foot: REVIEW OF SYSTEMS: Review of Systems Constitutional: Negative for chills and fever. HENT: Negative for hearing loss and tinnitus. Eyes: Negative for blurred vision. Respiratory: Negative for cough and shortness of breath. Cardiovascular: Negative for chest pain, palpitations and leg swelling. Gastrointestinal: Negative for abdominal pain, constipation, diarrhea, nausea and vomiting. Musculoskeletal: Positive for myalgias (bilateral feet). Negative for falls. Neurological: Negative for focal weakness and headaches. Psychiatric/Behavioral: Positive for depression. The patient is nervous/anxious. Objective PHYSICAL EXAM: VITALS: BP 122/68 (BP Location: Left arm, Patient Position: Sitting) | Pulse 91 | Temp 97.2 °F (36.2 °C) (Temporal) | Ht 5' 5" (1.651 m) | Wt 251 lb (113.9 kg) | LMP 04/01/2023 | SpO2 96% | BMI 41.77 kg/m² Body mass index is 41.77 kg/m². Physical Exam Vitals and nursing note reviewed. Constitutional: Appearance: Normal appearance. Eyes: Conjunctiva/sclera: Conjunctivae normal. Cardiovascular: Rate and Rhythm: Normal rate and regular rhythm. Heart sounds: Normal heart sounds. Pulmonary: Effort: Pulmonary effort is normal. Breath sounds: Normal breath sounds. Abdominal: General: Abdomen is flat. Bowel sounds are normal. There is no distension. Palpations: Abdomen is soft. Tenderness: There is no abdominal tenderness. Musculoskeletal: General: Normal range of motion. Cervical back: Normal range of motion and neck supple. Right lower leg: No edema. Left lower leg: No edema. Skin: General: Skin is warm and dry. Neurological: Mental Status: She is alert and oriented to person, place, and time. Psychiatric: Mood and Affect: Mood normal. Behavior: Behavior normal. Thought Content: Thought content normal. Judgment: Judgment normal. ASSESSMENT / IMPRESSION: ICD-10-CM 1. Prediabetes R73.03 2. Encounter for weight management Z76.89 3. Anxiety and depression F41.9 F32.A 4. Medication management Z79.899 5. [place] of foot L84 PARING CORN OR CALLUS, SINGLE PARING CORN OR CALLUS, SINGLE Plan Continue the 2mg dosing of the Ozempic. Bilateral feet corns removed successfully today. Please let me know if you develop anymore of them. Follow-up in 3 months or sooner if needed. Author: SANDRA Chávez 08/29/2024 15:12 documented in this encounter Nursing Notes * Aliza Villarreal LPN - 08/29/2024 11:00 AM EST PATIENT: Ilana Pond : 1985 DATE OF SERVICE: 08/29/2024 Chief Complaint Patient presents with Follow Up 3 month Ozempic check Foot Problem Possible corns on each foot, the left foot is causing her pain. Author: Aliza Villarreal LPN 08/29/2024 10:54 documented in this encounter Plan of Treatment Upcoming Encounters Date Type Department Care Team (Late st Contact Info) Description 11/28/2024 11:00 AM EDT Office Visit [facility] [address] [place] [phone] Leslee Marion FNP [address] [place] [address] Scheduled Orders Name Type Priority Associated Diagnoses Orde r Schedule PARING CORN OR CALLUS, SINGLE Procedures Routine [place] of foot Ordered: 08/29/2024 PARING CORN OR CALLUS, SINGLE Procedures Routine [place] of foot Ordered: 08/29/2024 Health Maintenance Due Date Last Done Comments [...] depression. Take all prescribed medications as directed Self-manageLeslee Aldana FNP Note: This is an individualized self-management [...] as of this encounter Visit Diagnoses Diagnosis Prediabetes- Primary Other abnormal glucose Encounter for weight management Anxiety and depression Dysthymic disorder Medication management Encounter for long-term (current) use of other medications [place] of foot Corns and callosities documented in this encounter Insurance [employer]/[place] [phone] documented as of this encounter Advance Directives [...] and agreed to: Full Code Care Teams Livestock Nutrition Territory Manager Relationship Specialty Start Date End Date Leslee Marion FNP [address] [place] [id number] PCP - General FAMILY PRACTICE 05/04/23 documented as of this encounter
--- OUTSIDE RECORDS SUMMARY | 2024-12-26 22:58 | External Medical Summary | Summary of Care ---
Author Name Unknown Organization [facility] Address [address] [place] [address] Care Team Providers Care Instant Printer Operator Name Role Phone Leslee Marion Primary Care Provider Reason for Visit * Reason Comments Follow Up 3 month Ozempic chec k Foot Problem Possible corns on ea ch foot, the left foot is causing her pain. Encounter Details Date Type Department Care Team (Late st Contact Info) Description 08/29/2024 11:00 AM EST [facility] [address] [place] [phone] Leslee Marion FNP [address] [place] [address] Prediabetes (Primary Dx); Encounter for weight management; Anxiety and depression; Medication management; [place] of foot Allergies No known active allergiesdocumented [...] F41.9 F32.A 4. Medication management Z79.899 5. [place] of foot L84 PARING CORN OR CALLUS, [...] 11/28/2024 11:00 AM EDT Office Visit [facility] [address] [place] [phone] Leslee Marion FNP [address] [place] [address] Scheduled Orders Name Type Priority Associated Diagnoses Orde r Schedule PARING CORN OR CALLUS, SINGLE Procedures Routine [place] of foot Ordered: 08/29/2024 PARING CORN OR CALLUS, SINGLE Procedures Routine [place] of foot Ordered: 08/29/2024 Health Maintenance Due [...] for long-term (current) use of other medications [place] of foot Corns and callosities documented in this encounter Insurance [employer]/[place] [phone] documented as of this encounter Advance Directives [...] and agreed to: Full Code Care Teams Instant Printer Operator Relationship Specialty Start Date End Date Leslee Marion FNP [address] [id number] PCP - General FAMILY PRACTICE 05/04/23 documented as of this encounter
--- OUTSIDE RECORDS SUMMARY | 2024-12-26 22:58 | External Medical Summary | Summary of Care ---
Author Name Unknown Organization [facility] Address [address] [place] [address] Phone [phone] Care Team Providers Care Space Operations Officer Name Role Phone Leslee Marion Primary Care Provider [phone]- [phone] Reason for Visit * Reason Comments Follow Up Encounter Details Date Type Department Care Team ([facility] st Contact Info) Description 10/04/2024 11:00 AM EST Office Visit General Surgery, [facility] [address], [place] [id number] Yina Savage MD [address] [place] [address] Incisional hernia, without obstruction or gangrene* Allergies No known active allergiesdocumented as of this encounter (statuses as of 10/04/2024) Medications Venlafaxine HCl ER 150 MG Oral Capsule Extended Release 24 Hour (Effexor XR)Indications:De pression with anxiety TAKE 1 CAPSULE BY MOUTH [...] at bedtime. 60 Tablet 3 4 Active busPIRone HCl 10 MG Oral Tablet (Buspar) Take 1 Tablet by mouth in the morning and 1 Tablet at noon and 1 Tablet before bedtime. Active Escitalopram Oxalate 10 MG Oral Tablet (Lexapro) Take 1 Tablet by mouth in the morning. Active Ozempic (1 MG/DOSE) 2 MG/1.5ML Subcutaneous Solution Pen-injector (Semaglutide (1 MG/DOSE)) Inject 1 mg under the skin once a week. 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 Has been very satisfied with care at [facility]. Undecided about future pregnancies. Obesity complicating 09/19/2013 [...] 09/19/2013 05/17/2014 Overview (02/07/2014): Pt desires in [facility]. 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 Not on file Not on file documented as of this encounter Last Filed Vital Signs Vital Sign Reading Time Taken Comments Blood Pressure 135/72 10/04/2024 11:28 AM EST Pulse 78 10/04/2024 11:28 AM EST Temperature 35.9 °C (96.6 °F) 10/04/2024 1 1:28 AM EST Respiratory Rate 18 10/04/2024 11:2 8 AM EST Oxygen Saturation - - Inhaled Oxygen Concentration - - Weight 110.9 kg (244 lb 9.6 oz) 025 11:28 AM EST Height 165.1 cm (5' 5") 10/04/2024 11:2 8 AM EST Body Mass Index 40.7 10/04/2024 11:28 AM EST documented in this encounter Progress Notes * Julio Rain MD - 10/04/2024 11:37 AM EST General Surgery History and Physical [facility] General Surgery - [place] [id number] Name: Ilana Pond Date: 10/04/24 Patient is seen at the request of Leslee ROSE for evaluation of an incisional hernia. Chief Complaint Patient presents with Follow Up HPI: Ilana Pond is a 39 year old woman with obesity (Body mass index is 40.7 kg/m².), hx x 3, hx ex lap for uterine rupture with emergency C- section and hysterectomy, primary repair of supraumbilical hernia (09/27/23, combination case with OB and EGS) who presents for evaluation of an incisional hernia. Her hernia does reduce spontaneously when she lies down most of the time - sometimes she needs to push it back in herself. Tolerating diet well. No nausea, vomiting. Just some discomfort around her hernia when she coughs or sneezes. Denies constipation / diarrhea, melena / hematochezia. Otherwise doing well. Denies fever, chills, headaches, dizziness, vision changes, chest pain, SOB, recent cough / cold symptoms, changes in appetite, reflux, dysuria / urinary problems, pain / numbness / swelling / tingling in extremities, skin rashes / infections / wounds. Went on ozempic last year and due to stress and life changes in 2023, lost a lot of weight since last year - about 60 lbs. At time of surgery on 09/27/23, BMI was 54.65, now down to 40.70. States she overall feels much better after the weight loss, but now has significant pannus / skin folds of the lower abdomen. Smoking status: current smoker - <1ppd. Has tried to quit twice in the past, was able to do so during . Nicotine patches don't work well for her. She is very motivated to quit. Prior problems with anesthesia: none reported History of bleeding disorders / blood clots: does bruise easily but no diagnosis Anticoagulation / antiplatelet medications: none reported Current pain medication usage: none Past Medical History: Diagnosis Date Adult body mass index 45.0-49.9 06/05/11 ACTUAL 46.6 Past Surgical History: Procedure Laterality Date ANESTH, VAGINAL DELIVERY 05/08/2014 ANESTHESIA FOR VAGINAL DELIVERY ONLY performed by Nesha Aguila DO at [facility] ATTEMPT DELIV W/POSTPART CARE 05/09/2014 DELIVERY AND CARE FOLLOWING ATTEMPTED VAGINAL performed by Ronen Daily MD at [facility] DELIVERY ONLY W/ 08/26/2011 DELIVERY AND CARE performed by ESTUARDO LUNA at [facility] DELIVERY ONLY W/ 08/26/2011 DELIVERY AND CARE performed by ESTUARDO LUNA at [facility] DELIVERY ONLY W/ N/A 05/29/2016 DELIVERY AND CARE performed by Estuardo Luna MD at [facility] EXPLORATION OF ABDOMEN N/A 09/27/2023 EXPLORATORY LAPAROTOMY performed by Yina Savage MD at [facility] Family History Problem Relation Name Age of [...] (Maternal) Obesity Grandfather (Paternal) Obesity Sister x2 Social History Tobacco Use Smoking status: Former Current packs/day: 0.00 Average packs/day: 0.5 packs/day for 11.0 years (5.5 ttl pk-yrs) Types: Cigarettes Start date: 11/14/2002 Quit date: 11/14/2013 Years since quittin.8 Smokeless tobacco: Never Tobacco comments: quit as of 11/2013 Substance Use Topics Alcohol use: Not Currently Comment: occasional prior to knowledge of Drug use: No Comment: history of marijuana use in the past Current Outpatient Medications Medication Sig Dispense Refill Famotidine 20 MG Oral Tablet (Pepcid) Take 1 Tablet by mouth in the morning. busPIRone HCl 10 MG Oral Tablet (Buspar) Take 1 Tablet by mouth in the morning and 1 Tablet at noonand 1 Tablet before bedtime. Escitalopram Oxalate 10 MG Oral Tablet (Lexapro) Take 1 Tablet by mouth in the morning. Ozempic (1 MG/DOSE) 2 MG/1.5ML Subcutaneous Solution Pen-injector (Semaglutide (1 MG/DOSE)) Inject 1 mg under the skin once a week. Venlafaxine HCl ER 150 MG Oral Capsule Extended Release 24 Hour (Effexor XR) TAKE 1 CAPSULE BY MOUTH ONCE DAILY. DO NOT CUT, CRUSH OR CHEW. 90 Capsule 1 Complete Oral Capsule Therapy Pack Take 1 Tablet by mouth in the morning. Albuterol Sulfate 108 (90 Base) MCG/ACT Inhalation Aerosol Powder Breath Activated Inhale 2 Puffs by mouth every 6 hours as needed for Shortness of Breath. Acetaminophen 325 MG Oral Tablet (Tylenol) Take 3 Tablets by mouth every 6 hours. 30 Tablet 0 Ibuprofen 600 MG Oral Tablet (Motrin) Take 1 Tablet by mouth every 6 hours. 30 Tablet 0 NIFEdipine ER 30 MG Oral Tablet Extended Release 24 Hour (Adalat CC) Take 1 Tablet by mouth in the morning. 60 Tablet 3 NIFEdipine ER 60 MG Oral Tablet Extended Release 24 Hour (Adalat CC) Take 1 Tablet by mouth every night at bedtime. 60 Tablet 3 No current facility-administered medications for this visit. Review of patient's allergies indicates: No Known Allergies ROS: See HPI for pertinent positives, otherwise all other systems are negative. Physical Exam: Blood pressure 135/72, pulse 78, temperature 35.9 °C (96.6 °F), temperature source Tympanic, resp. rate 18, height 1.651 m (5' 5"), weight 110.9 kg (244 lb 9.6 oz), unknown if currently . Gen: no acute distress Neck: supple, normal ROM CV: RRR, no MRG Chest: nonlabored breathing, CTAB Abdomen: soft, nontender, nondistended, two large ventral hernias along midline incision - both soft and reducible, no overlying skin changes. Large amount of loose skin folds / pannus at lower abdomen. Extremities: no cyanosis / edema Skin: Warm, dry, grossly intact Neuro: A&Ox3, appropriate Psych: Normal mood and affect Pertinent Labs: I reviewed the following labs: Latest Reference Range & Units 05/06/24 21:14 05/07/24 03:14 WBC 3.98 - 10.04 K/uL 10.66 (H) (E) 9.63 (E) RBC 3.93 - 5.22 M/UL 3.84 (L) (E) 3.75 (L) (E) HGB 11.2 - 15.7 g/dL 12.0 (E) 11.6 (E) HCT 34.1 - 44.9 % 36.4 (E) 35.6 (E) MCV 79.4 - 94.8 FL 94.8 (E) 94.9 (H) (E) MCH 25.6 - 32.2 PG 31.3 (E) 30.9 (E) MCHC 32.2 - 35.5 g/dL 33.0 (E) 32.6 (E) RDW 11.7 - 14.4 % 14.8 (H) (E) 15.1 (H) (E) PLT 182 - 369 K/uL 556 (H) (E) 565 (H) (E) MPV 9.4 - 12.3 FL 8.3 (L) (E) 8.7 (L) (E) (H): Data is abnormally high (L): Data is abnormally low (E): External lab result Latest Reference Range & Units 09/30/23 07:38 05/05/24 09:15 05/06/24 21:14 05/07/24 03:14 SODIUM 135 - 146 mmol/L 139 POTASSIUM 3.5 - 5.1 mmol/L 3.5 CHLORIDE 98 - 107 mmol/L 104 CO2 22 - 32 mmol/L 25 BUN 6 - 20 mg/dL 11 CREATININE 0.5 - 1.0 mg/dL 0.3 (L) EGFR >=60 mL/min >90 ANION GAP 7 - 15 mmol/L 10 GLUCOSE 70 - 120 mg/dL 94 CALCIUM 8.4 - 10.2 mg/dL 8.2 (L) MAGNESIUM-OUTSIDE LAB 1.6 - 2.6 MG/DL 2.2 (E) Protein 6.0 - 8.3 g/dL 5.8 (L) LIPASE-OUTSIDE LAB 13 - 60 U/L 22 (E) 26 (E) (L): Data is abnormally low (E): External lab result Latest Reference Range & Units 09/27/23 16:44 09/30/23 07:38 Albumin 3.8 - 5.0 g/dL 3.5 (L) 3.4 (L) AST 10 - 35 U/L 13 27 ALT 10 - 35 U/L 10 22 Alkaline Phosphatase 35 - 130 U/L 57 51 Bilirubin, Total <=1.2 mg/dL 0.4 0.4 (L): Data is abnormally low Latest Reference Range & Units 07/23/23 09:27 05/01/24 10:47 HEMOGLOBIN, [id number] LAB 4.0 - 6.0 % 5.7 (E) 5.9 (E) (E): External lab result Imaging: I reviewed the following images and reports: 05/05/24 CT Abd / pelvis with IV contrast (no PO): IMPRESSION: History of previous hernia repair with presumed recurrent large abdominal hernia defect containing probable evolving obstructive/incarcerated loop of small bowel along the inferior/lower aspect of the hernia defect and loop of nonobstructed transverse colon along the upper aspect of the hernia defect. Bilateral nonobstructing renal calculi again seen similar to prior 03/25/2022 imaging. 05/06/24 CT Abd / Pelvis with IV contrast (no PO): FINDINGS/IMPRESSION: Complex ventral hernias containing bowel loops. The more inferior hernia sac contains some fluid and demonstrates mild fat stranding; strangulation and/or incarceration are clinical diagnoses. There is no bowel dilation. Overall, there are no significant changes since the CT performed yesterday. Elsewhere in the abdomen and pelvis, there are no significant changes since the CT performed yesterday; refer to Acc #[id number] for further details. Assessment and Plan: Ilana Pond is a 39 year old woman with large ventral hernias x2 after emergent XL, , and hysterectomy last year 09/2023. Images and reports above reviewed in detail with patient. Discussed at length that hernia repair would require a retrorectus ventral hernia repair with mesh, possible separation of components, possible bowel resection. This would be an approximately 4 hour operation requiring a post operative hospital stay (2-5 days average) with weeks to months to full recovery. Discussed the increased perioperative risks as well as increased risks of hernia recurrence of proceeding with surgery in the setting of obesity. Ideally, patient would achieve further weight loss with goal of BMI < 40 (currently 40.70, so essentially at this goal). Diabetes is very well controlled - last HgbA1c on 05/01/24 was 5.9. She continues to smoke - discussed at length that due tothe complexity of hernia repair, would not proceed unless she has quit smoking. Patient expresses understanding and is very motivated to quit. She also expressed interest in possible combined operation with Plastic surgery for panniculectomy, as she has lost significant weight and has large low abdominal skin folds / pannus. Discussed that she would not be a candidate for this unless BMI < 40 and she was not smoking. -Indications, risks, benefits and potential complications of ventral hernia repair, possible with mesh, possible separation of components, possible bowel resection discussed in detail with the patient. All questions answered to apparent satisfaction. Patient is interested in proceeding with hernia repair, but is willing to continue to work on further weight loss and smoking cessation prior to scheduling. -She is not interested in a referral to GI/Nutrition at this time -Discussed symptoms to watch for which could indicate obstruction / incarceration / strangulation. Instructed patient to present to the ED should any of these occur. -Abdominal binder provided in clinic today for support -Follow up in clinic in 1-2 months for further check in on progress and possible hernia repair scheduling. -Discussed that a plastic surgery referral could be placed at that time if she is no longer smoking, for consideration of combined retrorectus hernia repair with panniculectomy. -Patient expresses understanding and is in agreement with the above plan. Patient seen and discussed w Dr Janette Rain MD, PGY-4 General Surgery [facility] I have discussed the patient's management with the resident/fellow physician and agree with the note. Please refer to the documented findings and plan of care. This patient's visit today consisted ofan evaluation. I was present and confirmed the findings of the history and exam. I have personally interviewed the patient and/or family, and preformed a pertinent physical examination. I personally formulated the above assessment and plan, based on the information available to me today. My assessment was discussed in detail with the patient and all feasible options were entertained. Ample time was allotted for discussion of my findings and then all questions were answered indetail to the patient’s and/or family’s satisfaction. I spent a total of 20-29 minutes (exact time 23 mins) on the date of service in preparation, delivery, and documentation of the care provided to Ilana Pond excluding any time spent in the performance of separately billed services. Yina Savage MD 10/04/2024 2:41 PM documented in this encounter Plan of Treatment Upcoming Encounters Date Type Department Care Team (Late st Contact Info) Description 10/11/2024 10:30 AM EST Office Visit Oral Maxillofacial Surgery, [facility] [address] [place] [address] Mart Boyle Pagelulu, DDS [address] [place] [address] 11/10/2024 12:00 PM EDT Office Visit General Surgery, [facility] [address] [place] [address] Yina Savage MD [address] [place] [address] Health Maintenance Due Date Last Done Comments [...] as of this encounter Visit Diagnoses Diagnosis Incisional hernia, without obstruction or gangrene- Primary Incisional hernia without mention of obstruction or gangrene documented in this encounter Advance Directives * [...] and were consensually agreed upon. Care Teams Space Operations Officer Relationship Specialty Start Date End Date Leslee Marion CRNP [facility] [place] [address] [id number] PCP - General Nurse Practitioner 05/08/24 documented as of this encounter
--- OUTSIDE RECORDS SUMMARY | 2024-12-26 22:58 | External Medical Summary | Summary of Care ---
Author Name Unknown Organization [facility] Address [address] [address] Care Team Providers Care Jig And Fixture Repairer Name Role Phone Leslee Marion Primary Care Provider [phone]- [phone] Reason for Visit * Reason Onset Date Comments Medication Refill 07/22/2024 Encounter Details Date Type Department Care Team (Late st Contact Info) Description 07/22/[address] [facility] [address] [place] [phone] Leslee Simental, SUHA [address] [facility] [place] [phone] COPD exacerbation (HCC) (Primary Dx) Allergies No known active allergiesdocumented as of this encounter (statuses as of 07/24/2024) Medications Medication Sig Dispensed Refills Start Date End Date Status ferrous sulfate 325 (65 Fe) MG Oral Tab Take 1 Tablet by mouth DAILY. 90 Tablet 3 05/02/2024 Active Semaglutide,0.25 or 0.5MG/DOS, (OZEMPIC, 0.25 OR 0.5 MG/DOSE,) 2 MG/3ML Subcutaneous Solution Pen-injectorIndica tions:Prediabetes, BMI 45.0-49.9, adult (HCC) Inject 0.5 mg beneath the skin EVERY 7 DAYS. 2 mL 06/22/2024 Active Albuterol Sulfate 108 (90 Base) MCG/ACT Inhalation AEROSOL POWDER, BREATH ACTIVATEDIndicatio ns:COPD exacerbation (HCC) Take 2 Puffs by inhalation EVERY FOUR HOURS NEEDED (shortness of breath). 1 Each 1 07/24/2024 Active escitalopram (LEXAPRO) 10 MG Oral Tab Take 1 Tablet by mouth DAILY. 90 Tablet 3 07/24/2024 Active busPIRone (BUSPAR) 10 MG Oral Tab Take 1 Tablet by mouth THREE TIMES DAILY NEEDED (for anxiety). 270 Tablet 3 07/24/2024 Active famotidine (PEPCID) 20 MG Oral Tab Take 1 Tablet by mouth TWICE DAILY. 60 Tablet 6 07/24/2024 Active Albuterol Sulfate 108 (90 Base) MCG/ACT Inhalation AEROSOL POWDER, BREATH ACTIVATEDIndicatio ns:COPD exacerbation (HCC) Take 2 Puffs by inhalation EVERY FOUR HOURS NEEDED (shortness of breath). 1 Each 1 08/13/2022 Discontinue d(Reorder) documented as of this encounter (statuses as of 07/24/2024) Active Problems Problem Noted Date Diagnosed Date Incarcerated ventral hernia 05/07/2024 Abnormal ultrasound 08/24/2023 [...] as of this encounter (statuses as of 07/24/2024) Resolved Problems Problem Noted Date Diagnosed Date [...] as of this encounter (statuses as of 07/24/2024) Immunizations Name Administration Dates Next Due Influenza (IM) Preservative [...] you have received? High school graduate 06/02/2023 Sex and Gender Information Value Date Recorded Sex Assigned at Female 02/01/2022 10:55 AM EDT Gender Identity Female 02/01/2022 10:55 AM EDT Sexual Orientation Asexual 02/01/2022 10 :55 AM EDT documented as of this encounter Miscellaneous Notes * Telephone Encounter - Marisa Vance - 07/24/2024 7:23 AM EST Requested Prescriptions Pending Prescriptions Disp Refills Albuterol Sulfate 108 (90 Base) MCG/ACT Inhalation AEROSOL POWDER, BREATH ACTIVATED 1 Each 1 Sig: Take 2 Puffs by inhalation EVERY FOUR HOURS NEEDED (shortness of breath). documented in this encounter Plan of Treatment Upcoming Encounters Date Type Department Care Team (Late st Contact Info) Description 08/29/2024 11:00 AM EST Office Visit [facility] [address] [place] [address] Leslee Marion FNP [address] [place] [address] Health Maintenance Due Date Last Done Comments PNEUMOCOCCAL 0-64 YRS (1 of 2 - PCV) 1991 LIPID DISORDER SCREENING 2005 INFLUENZA VACCINE (#1) [...] resources that may help you to quit. Keep immunizations current Lifestyle No Leslee Marion FNP Note: This is an individualized lifestyle goal for Ilana Pond: Please be sure to keep up-to-date on recommended immunizations. For example, this would include a yearly influenza vaccine. Immunization status can be seen by looking at the Health Maintenance sections of your e[facility], Plan of Care, and any After Visit Summaries. Take all prescribed medications as directed Self-managemen [...] of this encounter Visit Diagnoses Diagnosis COPD exacerbation (HCC)- Primary Obstructive chronic bronchitis with exacerbation documented in this encounter Insurance Payer Benefit Plan / Group Subscriber ID Effective Dates Phone Address Type [facility] [id number] 2022-Pre sent [address] [place] [phone] [employer] [facility] documented as of this encounter Advance Directives [...] and agreed to: Full Code Care Teams Jig And Fixture Repairer Relationship Specialty Start Date End Date Leslee Marion FNP [employer] [address] [id number] PCP - General FAMILY PRACTICE 05/04/23 documented as of this encounter
--- OUTSIDE RECORDS SUMMARY | 2024-12-26 22:58 | External Medical Summary | Summary of Care ---
Author Name Unknown Organization [facility] Address [address] [address] Care Team Providers Care Striper Name Role Phone Leslee Marion Primary Care Provider Encounter Details Date Type Department Care Team (Late st Contact Info) Description 07/22/[address] [facility] [address] [place] [phone] Leslee Marion FNP [address] [place] [address] Ozempic Allergies No known active allergiesdocumented as of this encounter (statuses as of 07/24/2024) Medications Medication Sig Dispensed Refills Start Date End Date Status ferrous sulfate 325 (65 Fe) MG Oral Tab Take 1 Tablet by mouth DAILY. 90 Tablet 3 05/02/2024 Active Semaglutide, 1 MG/DOSE, (OZEMPIC, 1 MG/DOSE,) 4 MG/3ML Subcutaneous Solution Pen-injector Inject 1 mg beneath the skin EVERY 7 DAYS. 3 mL 07/24/2024 Active Albuterol Sulfate 108 (90 Base) MCG/ACT Inhalation AEROSOL POWDER, BREATH ACTIVATEDIndicatio ns:COPD exacerbation (HCC) Take 2 Puffs by inhalation EVERY FOUR HOURS NEEDED (shortness of breath). 1 Each 1 08/13/2022 4 Discontinue d(Reorder) escitalopram (LEXAPRO) 10 MG Oral Tab Take 1 Tablet by mouth DAILY. 90 Tablet 3 05/01/2024 4 Discontinue d(Reorder) busPIRone (BUSPAR) 10 MG Oral Tab Take 1 Tablet by mouth THREE TIMES DAILY NEEDED (for anxiety). 270 Tablet 3 05/26/2024 4 Discontinue d(Reorder) famotidine (PEPCID) 20 MG Oral Tab Take 1 Tablet by mouth TWICE DAILY. 60 Tablet 6 05/29/2024 4 Discontinue d(Reorder) Semaglutide,0.25 or 0.5MG/DOS, (OZEMPIC, 0.25 OR 0.5 MG/DOSE,) 2 MG/3ML Subcutaneous Solution Pen-injectorIndica tions:Prediabetes, BMI 45.0-49.9, adult (HCC) Inject 0.5 mg beneath the skin EVERY 7 DAYS. 2 mL 06/22/2024 4 Discontinue d(Other) documented as of this encounter (statuses as [...] AM EDT documented as of this encounter Plan of Treatment Upcoming Encounters Date Type Department Care Team (Late st Contact Info) Description 08/29/2024 11:00 AM EST Office Visit [facility] [address] [phone] Leslee Marion FNP [...] is an individualized lifestyle goal for Ilana Gu[place]man[place]leon: Please be sure to keep up-to-date on recommended immunizations. For example, this would include a yearly influenza vaccine. Immunization status can be seen by looking at the Health Maintenance sections of your e[facility], Plan of Care, and any After Visit Summaries. Take all prescribed medications as directed Self-managemen t No Leslee Marion FNP Note: This is an individualized self-management goal for Ilana [place]on: Please take all prescribed medications as directed. [...] basis. documented as of this encounter Insurance Payer Benefit Plan / Group Subscriber ID Effective Dates Phone Address Type [employer] [id number] 2022-Pre sent [address] [place] [address] [employer] documented as of this encounter Advance Directives [...] and agreed to: Full Code Care Teams Striper Relationship Specialty Start Date End Date Leslee Marion FNP [facility] [place] [id number] PCP - General FAMILY PRACTICE 05/04/23 documented as of this encounter
--- OUTSIDE RECORDS SUMMARY | 2024-12-26 22:58 | External Medical Summary | Summary of Care ---
Author Name Unknown Organization [facility] Address [address] [place] [address] Phone [phone] Care Team Providers Care Ream Cutter Name Role Phone Leslee Marion Primary Care Provider +1- [phone] Encounter Details Date Type Department Care Team (Late st Contact Info) Description 05/05/2024 Orders Only Unspecified Department Julio Rain MD [address] [place] [address] Allergies No known active allergiesdocumented as of [...] mouth in the morning. 60 Tablet 3 Active NIFEdipine ER 60 MG Oral Tablet [...] of 09/28/2023 09/28/2023 Single liveborn, born in [facility], delivered by section 05/31/2016 11/12/2017 care [...] Per MFM: She would NOT be a [place] Candidate due to the delivery having been [...] Overview (05/11/2016): x2 Planning to deliver at [facility], would like to attempt again for ease of caring of and 2 year old son. Has been very satisfied with care at [facility]. Undecided about future pregnancies. Obesity complicating 09/19/2013 [...] 09/19/2013 05/17/2014 Overview (02/07/2014): Pt desires in [place]. 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 on file Not on file documented as of this encounter Plan of Treatment Upcoming Encounters Date Type Department Care Team (Late st Contact Info) Description 10/11/2024 10:30 AM EST Office Visit Oral Maxillofacial Surgery, [place] [address] [place] [address] Martina Quintero, DDS [address] [place] [address] 11/10/2024 12:00 PM EDT Office Visit General Surgery, [place] [address] [place], [place] [phone] Yina Savage MD [address] [place], [place] [phone] Health Maintenance Due Date Last Done Comments Hepatitis B Vaccine (1 of 3 - 19+ 3-dose series) 2004 Pneumococcal Vaccine: Pediatrics (0 to 5 Years) and At-Risk Patients (6 to 18 Years and 19+ Years) (1 of 2 - PCV) 2004 HPV/Co-Test 2015 Cervical Cancer Screening 09/29/2020 Pap Smear 09/29/2020 09/29/2017, 09/19/2013 COVID-19 Vaccine ( - season) 2024 Influenza Vaccine (FLU shot) (#1) [...] study not interpreted or resulted by a [facility]. us Julio Rain MD RAD [...] and were consensually agreed upon. Care Teams Ream Cutter Relationship Specialty Start Date End Date Leslee Marion CRNP [address] [id number] PCP - General Nurse Practitioner 05/08/24 documented as of this encounter
--- OUTSIDE RECORDS SUMMARY | 2024-12-26 22:58 | External Medical Summary | Summary of Care ---
Author Name Unknown Organization [facility] Address [address] [address] Care Team Providers Care Commercial Finance Analyst Name Role Phone Leslee Marion Primary Care Provider Reason for Visit * Reason Onset Date Comments Medication Refill 07/22/2024 Encounter Details Date Type Department Care Team (Late st Contact Info) Description 07/22/2024 Refill Boy [facility] [address] [place] [phone] Leslee Marion FNP [address] [facility] [place] [address] Prediabetes; BMI 45.0-49.9, adult (HCC) Allergies No known active allergiesdocumented as of this encounter (statuses as of 08/02/2024) Medications Medication Sig Dispensed Refills Start Date End Date Status ferrous sulfate 325 (65 Fe) MG Oral Tab Take 1 Tablet by mouth DAILY. 90 Tablet 3 05/02/2024 Active escitalopram (LEXAPRO) 10 MG Oral Tab [...] as of this encounter (statuses as of 08/02/2024) Active Problems Problem Noted Date Diagnosed Date [...] as of this encounter (statuses as of 08/02/2024) Resolved Problems Problem Noted Date Diagnosed Date [...] as of this encounter (statuses as of 08/02/2024) Immunizations Name Administration Dates Next Due Influenza [...] Telephone Encounter - Celia Robles LPN - 07/24/2024 9:28 AM EST PATIENT: Ilana Pond : 1985 DATE OF SERVICE: 07/24/2024 Requested Prescriptions Pending Prescriptions Disp Refills escitalopram (LEXAPRO) 10 MG Oral Tab 90 Tablet 3 Sig: Take 1 Tablet by mouth DAILY. busPIRone (BUSPAR) 10 MG Oral Tab 270 Tablet 3 Sig: Take 1 Tablet by mouth THREE TIMES DAILY NEEDED (for anxiety). famotidine (PEPCID) 20 MG Oral Tab 60 Tablet 6 Sig: Take 1 Tablet by mouth TWICE DAILY. Semaglutide,0.25 or 0.5MG/DOS, (OZEMPIC, 0.25 OR 0.5 MG/DOSE,) 2 MG/3ML Subcutaneous Solution Pen-injector 2 mL 0 Sig: Inject 0.5 mg beneath the skin EVERY 7 DAYS. [facility] - [address] [address] Last ordered on 05/01/24 lexapro, 05/26/24 buspar, 05/16/24 pepcid, 06/22/24 ozempic Last encounter in this department : 05/29/2024 Next appointment scheduled in this department : 08/29/2024 Author: Celia Robles LPN 07/24/2024 09:29 * Telephone Encounter - Marisa Vance - 07/24/2024 7:23 AM EST Requested Prescriptions Pending Prescriptions Disp Refills escitalopram (LEXAPRO) 10 MG Oral Tab 90 Tablet 3 Sig: Take 1 Tablet by mouth DAILY. busPIRone (BUSPAR) 10 MG Oral Tab 270 Tablet 3 Sig: Take 1 Tablet by mouth THREE TIMES DAILY NEEDED (for anxiety). famotidine (PEPCID) 20 MG Oral Tab 60 Tablet 6 Sig: Take 1 Tablet by mouth TWICE DAILY. Semaglutide,0.25 or 0.5MG/DOS, (OZEMPIC, 0.25 OR 0.5 MG/DOSE,) 2 MG/3ML Subcutaneous Solution Pen-injector 2 mL 0 Sig: Inject 0.5 mg beneath the skin EVERY 7 DAYS. documented in this encounter Plan of Treatment Upcoming Encounters Date Type Department Care Team (Late st Contact Info) Description 08/29/2024 11:00 AM EST Office Visit Boy [facility] [address] [place] [phone] Leslee Marion FNP [address] [place] [address] Health Maintenance Due Date [...] as of this encounter Visit Diagnoses Diagnosis Prediabetes Other abnormal glucose BMI 45.0-49.9, adult (HCC) Body Mass Index 45.0-49.9, adult documented in this encounter Insurance Payer Benefit Plan / Group Subscriber ID Effective Dates Phone Address Type [facility] [address] [id number] 2022-Pre sent [address] [place] [phone] [facility] documented as of this encounter Advance [...] and agreed to: Full Code Care Teams Commercial Finance Analyst Relationship Specialty Start Date End Date Leslee Marion FNP [address] [place] [id number] PCP - General FAMILY PRACTICE 05/04/23 documented as of this encounter
--- OUTSIDE RECORDS SUMMARY | 2024-12-26 22:58 | External Medical Summary | Summary of Care ---
Author Name Unknown Organization [facility] Address [address] [place] [address] Phone [phone] Care Team Providers Care Employment Assistant Name Role Phone Leslee Marion Primary Care Provider +1- [phone] Encounter Details Date Type Department Care Team (Late st Contact Info) Description 09/04/2024 Population Health External Data Unspecified Department Allergies No known active allergiesdocumented as of this encounter (statuses as of 09/04/2024) Medications Venlafaxine HCl ER 150 MG Oral [...] as of this encounter (statuses as of 09/04/2024) Active Problems Problem Noted Date Diagnosed Date [...] as of this encounter (statuses as of 09/04/2024) Resolved Problems Problem Noted Date Diagnosed Date Resolved Date 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 Has been very satisfied with care at [facility]. Undecided about future pregnancies. Obesity complicating 09/19/2013 [...] 09/19/2013 05/17/2014 Overview (02/07/2014): Pt desires in [place]. Referral placed to OB at [facility] on 02/07/2014 Antepartum hemorrhage, abrup kira placentae, [...] as of this encounter (statuses as of 09/04/2024) Immunizations Name Administration Dates Next Due PPD [...] 10/06/2023 Does the household have a re lar source of income? 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 Not on file documented as of this encounter Plan of Treatment Upcoming Encounters Date Type Department Care Team (Late st Contact Info) Description 10/04/2024 11:00 AM EST Office Visit General Surgery, [address] [address] Yina Savage MD [address] [place] [address] 12/20/2024 3:00 PM EDT Office Visit Oral Maxillofacial Surgery, [place] [address] [place] [address] Mart Boyle Martina, DDS [address] [place] [address] Health Maintenance Due Date Last Done Comments Hepatitis B Vaccine (1 of 3 - 19+ 3-dose series) 2004 HPV/Co-Test 2015 Cervical Cancer Screening 09/29/2020 [...] on patient's age to complete this topic Pneumococcal Vaccine: Pediatrics (0 to 5 Years) and At-Risk Patients (6 to 18 Years and 19+ Years) Aged Out No longer eligib le based on patient's age to complete this topic documented as of this encounter Medical Devices Not on filedocumented as of this encounter Advance Directives * [...] and were consensually agreed upon. Care Teams Employment Assistant Relationship Specialty Start Date End Date Leslee Marion CRNP [address] [place], [place] [address] [place] [phone] PCP - General Nurse Practitioner 05/08/24 documented as of this encounter
--- OUTSIDE RECORDS SUMMARY | 2024-12-26 22:58 | External Medical Summary | Summary of Care ---
Author Name Unknown Organization [facility] Address [address] [address] Care Team Providers Care Pattern Chain Maker Supervisor Name Role Phone Leslee Marion Primary Care Provider Encounter Details Date Type Department Care Team (Late st Contact Info) Description 08/18/2024 Patient Message Boy [facility] [address] [place] [phone] Leslee Marion FNP [address] [place] [address] Ozempic Allergies No known active allergiesdocumented as of this encounter (statuses as of 08/21/2024) Medications Medication Sig Dispensed Refills Start Date End Date Status ferrous sulfate 325 (65 Fe) MG Oral Tab Take 1 Tablet by mouth DAILY. 90 Tablet 3 05/02/2024 Active Albuterol Sulfate 108 (90 Base) MCG/ACT [...] TWICE DAILY. 60 Tablet 6 07/24/2024 Active Semaglutide, 2 MG/DOSE, (OZEMPIC, 2 MG/DOSE,) 8 MG/3ML Subcutaneous Solution Pen-injector Inject 2 mg beneath the skin EVERY 7 DAYS. 3 mL 6 08/21/2024 Active Semaglutide, 1 MG/DOSE, (OZEMPIC, 1 MG/DOSE,) 4 MG/3ML Subcutaneous Solution Pen-injector Inject 1 mg beneath the skin EVERY 7 DAYS. 3 mL 07/24/2024 Discontinue d(Dose Adjustment) documented as of this encounter (statuses as of 08/21/2024) Active Problems Problem Noted Date Diagnosed Date [...] as of this encounter (statuses as of 08/21/2024) Resolved Problems Problem Noted Date Diagnosed Date [...] as of this encounter (statuses as of 08/21/2024) Immunizations Name Administration Dates Next Due Influenza [...] Telephone Encounter - Celia Robles LPN - 08/21/2024 8:14 AM EST PATIENT: Ilana Pond : 1985 DATE OF SERVICE: 08/21/2024 Requested Prescriptions No prescriptions requested or ordered in this encounter [facility] [address] [place] [address] [place] [address] Last ordered on 07/24/24 Last encounter in this department : 05/29/2024 Next appointment scheduled in this department : 08/29/2024 Author: Celia Robles LPN 08/21/2024 08:14 documented in this encounter Plan of Treatment Upcoming Encounters Date Type Department Care Team (Late st Contact Info) Description 08/29/2024 11:00 AM EST Office Visit [facility] [address] [phone] Leslee Marion FNP [address] [place] [address] Health Maintenance Due Date Last Done Comments PNEUMOCOCCAL 0-64 YRS (1 of 2 - PCV) 2004 [...] Subscriber ID Effective Dates Phone Address Type [facility] [address] [id number] 2022-Pre sent [address] [place] [phone] [employer] documented as of this encounter Advance Directives [...] and agreed to: Full Code Care Teams Pattern Chain Maker Supervisor Relationship Specialty Start Date End Date Leslee Marion FNP [facility] [address] [id number] PCP - General FAMILY PRACTICE 05/04/23 documented as of this encounter
--- OUTSIDE RECORDS SUMMARY | 2024-12-26 22:58 | External Medical Summary | Summary of Care ---
Author Name Unknown Organization [facility] Address [address] [place] [address] Phone [phone] Care Team Providers Care Career Coach Name Role Phone Leslee Marion Primary Care Provider +1- [phone] Encounter Details Date Type Department Care Team (Late st Contact Info) Description 05/06/2024 Orders Only Unspecified Department Julio Rain MD [address] [place] [address] Allergies No known active allergiesdocumented [...] of 09/28/2023 09/28/2023 Single liveborn, born in [facility], delivered by section 05/31/2016 11/12/2017 care following [...] Per MFM: She would NOT be a [place] Candidate due to the delivery having been [...] Overview (05/11/2016): x2 Planning to deliver at [facility], would like to attempt again for ease of caring of and 2 year old son. Has been very satisfied with care at [facility]. Undecided about future pregnancies. Obesity complicating 09/19/2013 [...] 09/19/2013 05/17/2014 Overview (02/07/2014): Pt desires in [place]. 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 file Not on file documented as of this encounter Plan of Treatment Upcoming Encounters Date Type Department Care Team (Late st Contact Info) Description 10/11/2024 10:30 AM EST Office Visit Oral Maxillofacial Surgery, [place] [address] [place] [address] Martina Quintero, DDS [address] [place] [address] 11/10/2024 12:00 PM EDT Office Visit General Surgery, [place] [address] [place], [place] [phone] Yina Savage MD [address] [place], [place] [phone] Health Maintenance Due Date Last Done Comments [...] - CT (IMAGES ONLY, NO REPORT) Routine 05/06/2024 9:25 PM EDT documented in this encounter Results * RADIOLOGY EXAM - CT (IMAGES ONLY, NO REPORT) (05/06/2024 9:25 PM EDT) 05/06/2024 9:23 PM EDT Narrative Scheduling, Silent - 10/04/2024 1:14 PM EST This is an imaging study not interpreted or resulted by a [facility] or [facility]. us Julio Rain MD RAD [...] and were consensually agreed upon. Care Teams Career Coach Relationship Specialty Start Date End Date Leslee Marion CRNP [address] [phone] PCP - General Nurse Practitioner 05/08/24 documented as of this encounter
--- OUTSIDE RECORDS SUMMARY | 2024-12-26 22:58 | External Medical Summary | Summary of Care ---
Author Name Unknown Organization [facility] Address [address] [place] [address] Phone [phone] Care Team Providers Care Credit Card Clerk Name Role Phone Idalia Reed MD Primary Care Provider [phone] Encounter Details Date Type Department Care Team (Latest Contact Info) Description 05/06/2024 9:25 PM EDT - 05/06/2024 11:59 PM EDT Hospital Encounter Radiology Film File [address] [place] [address] Discharge Disposition: Home - Self [...] of 09/28/2023 09/28/2023 Single liveborn, born in [facility], delivered by section 05/31/2016 11/12/2017 [...] Overview (05/11/2016): x2 Planning to deliver at [facility], would like to attempt again for ease of caring of and 2 year old son. Has been very satisfied with care at [facility]. Undecided about future pregnancies. Obesity complicating 09/19/2013 [...] in [place]. 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 Not on file documented as of this encounter Plan of Treatment Upcoming Encounters Date Type Department Care Team (Late st Contact Info) Description 10/11/2024 10:30 AM EST Office Visit Oral Maxillofacial Surgery, [place] [address] [place] [address] Martina Quintero, DDS [address] [place] [address] 11/10/2024 12:00 PM EDT Office Visit General Surgery, [place] [address] [place], [place] [phone] Yina Savage MD [address] [place] [address] Health Maintenance Due Date Last [...] study not interpreted [facility]. us Julio Rain MD [...] and were consensually agreed upon. Care Teams Credit Card Clerk Relationship Specialty Start Date End Date Idalia Reed MD PCP - General Internal Medicine 03/28/24 05/07/24 documented as of this encounter
[2024-12-26] MEDS: FAMOTIDINE/PF 20 MG/2 ML VIAL IV ONE (23:12)
[2024-12-26] MEDS: ceFAZolin 2,000 MG/15 ML IV PUSH IV ONE (23:12)
[2024-12-26] MEDS: MoRPHine SULFATE 4 MG/ML 1 ML CARP\\VIAL IV PRN (23:19)
[2024-12-26] MEDS: SODIUM CHLORIDE 0.9% 1,000 ML IV SCH (23:21)
[2024-12-27] MEDS: ACETAMINOPHEN 1,000 MG/100 ML VIAL IV PRN (00:28)
[2024-12-27 06:45] LABS: Basophils # (auto) 0.04 K/uL (0.00-0.20); Basophils % (auto) 0.3 %; Eosinophils # (auto) 0.01 K/uL (0.00-0.50); Eosinophils % (auto) 0.1 %; Hematocrit (blood only) 31.8 % (37.0-47.0); Hemoglobin 10.6 g/dl (12.0-16.0); Immature Granulocytes # (auto) 0.05 K/uL (0.01-0.20); Immature Granulocytes % (auto) 0.4 %; Lymphocytes # (auto) 1.04 K/uL (1.20-3.40); Lymphocytes % (auto) 8.2 %; Mean Corpuscular Hemoglobin 31.3 pg (25.0-34.0); Mean Corpuscular Hgb Conc 33.3 g/dL (32.0-36.0); Mean Corpuscular Volume 93.8 fL (80.0-100.0); Mean Platelet Volume 9.3 fL (9.4-12.4); Monocytes # (auto) 1.21 K/uL (0.11-0.59); Monocytes % (auto) 9.5 %; Neutrophils # (auto) 10.34 K/uL (1.40-6.50); Neutrophils % (auto) 81.5 %; Platelet Count 284 K/uL (130-400); RDW Coefficient of Variation 13.7 % (11.5-14.5); RDW Standard Deviation 46.7 fL (36.4-46.3); Red Blood Count 3.39 M/uL (4.20-5.40); White Blood Count 12.69 K/ul (4.8-10.8)
[2024-12-27 06:56] LABS: BUN Creatinine Ratio 29.6 (10-20); Calcium 8.5 mg/dl (8.6-10.3); Creatinine Clr Calc Pharmacy 176.4 ml/min
[2024-12-27] MEDS: PANTOprazole 40 MG/10 ML SYR IV SCH (08:56)
--- NOTE | 2024-12-27 11:10 | Surgery Progress Note ---
Date of Service December 27, 2024 Assessment & Plan (1) Incarcerated hernia: Plan: Postoperative day #1 Doing better than I expected. Will DC the NG tube and start clear liquids. Will also DC Maldonado catheter. Out of bed to the chair. Not ready for discharge yet. (2) SBO (small bowel obstruction): Admission and Anticipated Discharge Date Admission Date: December 26, 2024 Subjective Patient seen. Doing surprisingly well considering the scope of the surgery she had. Minimal out of her NG tube. Pain controlled with medication Physical Exam Physical Exam: Alert. No acute distress NG tube and Maldonado catheter in place. Abdominal binder in place Results & Data Vital Signs (Past 12 Hours) Vital Signs Temp Pulse Resp BP Pulse Ox O2 Del Method O2 Flow Rate 12/27/24 07:23 36.6 C 66 16 114/76 95 Room Air 12/27/24 02:12 37.1 C 73 16 116/69 95 Nasal Cannula 2 12/27/24 00:52 37.1 C 69 18 114/66 93 Nasal Cannula 2 12/26/24 23:54 37.0 C 70 16 120/70 91 Nasal Cannula 2 12/26/24 23:41 Room Air 12/26/24 23:41 Room Air 12/26/24 23:20 37.2 C 71 16 125/70 91 Nasal Cannula 2 PG Care Time/CCT Total # of Minutes Spent Total Time Spent with Patient: Total time spent is greater than 50% in coordination of care (as documented) at patient's floor/unit and/or counseling patient: Coding Level of Care Code 67880 Post Operative Follow-Up Diagnoses Incarcerated hernia K46.0 SBO (small bowel obstruction) K56.609
[2024-12-27 11:50] LABS: Appearance Urine Clear (Clear); Bacteria Urine Automated None Seen (None Seen); Bilirubin Urine Negative (Negative); Blood Urine 1+ (Negative); Color Urine Dark Yellow; Epithelial Cell Urine Auto 0-2 /hpf (0-2); Glucose Urine UA Negative (Negative); Ketones Urine Negative (Negative); Leukocyte Esterase Urine Negative (Negative); Nitrite Urine Negative (Negative); Protein Urine Trace (Negative); Urobilinogen Urine Negative (Negative); WBC Urine Automated 0-5 /hpf (0-5); pH Urine 5.5 (4.5-7.5)
[2024-12-27] MEDS ORDERED: oxyCODONE HCL IR 5 MG TAB (IMMEDIATE RELEASE) PO PRN (14:29)
[2024-12-27] MEDS: oxyCODONE HCL IR 5 MG TAB (IMMEDIATE RELEASE) PO PRN (20:19)
[2024-12-27] MEDS: FAMOTIDINE 10 MG TABLET PO SCH (20:20)
[2024-12-27] MEDS: ESCITALOPRAM OXALATE 10 MG TAB PO ONE (21:00)
[2024-12-27] MEDS: busPIRone 5 MG TAB PO PRN (21:01)
[2024-12-28 08:03] LABS: Basophils # (auto) 0.03 K/uL (0.00-0.20); Basophils % (auto) 0.5 %; Eosinophils # (auto) 0.36 K/uL (0.00-0.50); Eosinophils % (auto) 5.7 %; Hematocrit (blood only) 27.5 % (37.0-47.0); Hemoglobin 8.9 g/dl (12.0-16.0); Immature Granulocytes # (auto) 0.03 K/uL (0.01-0.20); Immature Granulocytes % (auto) 0.5 %; Lymphocytes # (auto) 1.39 K/uL (1.20-3.40); Mean Corpuscular Hemoglobin 30.8 pg (25.0-34.0); Mean Corpuscular Hgb Conc 32.4 g/dL (32.0-36.0); Mean Corpuscular Volume 95.2 fL (80.0-100.0); Mean Platelet Volume 9.2 fL (9.4-12.4); Monocytes # (auto) 0.86 K/uL (0.11-0.59); Monocytes % (auto) 13.6 %; Neutrophils # (auto) 3.66 K/uL (1.40-6.50); Neutrophils % (auto) 57.7 %; Platelet Count 251 K/uL (130-400); RDW Coefficient of Variation 13.4 % (11.5-14.5); RDW Standard Deviation 46.4 fL (36.4-46.3); Red Blood Count 2.89 M/uL (4.20-5.40); White Blood Count 6.33 K/ul (4.8-10.8)
[2024-12-28 08:20] LABS: BUN Creatinine Ratio 17.2 (10-20); Calcium 8.3 mg/dl (8.6-10.3); Creatinine Clr Calc Pharmacy 164.2 ml/min; Potassium 3.7 mmol/L (3.5-5.1)
[2024-12-28] MEDS ORDERED: ESCITALOPRAM OXALATE 10 MG TAB PO SCH (09:00)
--- NOTE | 2024-12-28 12:57 | Surgery Progress Note ---
Date of Service December 28, 2024 Assessment & Plan (1) Incarcerated hernia: Plan: POD#2 WBC 6.3, Hbg 8.9 (10.6). Vitals stable Will advance to a regular diet and d/c IVF Continue current pain regimen Wearing abdominal binder, will change dressings tomorrow Encourage OOB ambulating and pulmonary toilet Not ready for d/c yet (2) SBO (small bowel obstruction): Admission and Anticipated Discharge Date Admission Date: December 26, 2024 Subjective Patient doing ok this morning but is having some anticipated pain Tolerating clears without issues of worsening pain. Denies any nausea or vomiting VSS and afebrile Physical Exam Constitutional: WD/WN, vitals as above Respiratory: normal respiratory effort, lungs clear to auscultation Cardiovascular: RRR, no murmur, no edema Results & Data Vital Signs (Past 12 Hours) Vital Signs Temp Pulse Resp BP Pulse Ox O2 Del Method 12/28/24 10:57 Room Air 12/28/24 08:07 36.8 C 67 18 108/67 95 Room Air PG Care Time/CCT Total # of Minutes Spent Total Time Spent with Patient: Total time spent is greater than 50% in coordination of care (as documented) at patient's floor/unit and/or counseling patient: Coding Level of Care Code 66123 Post Operative Follow-Up Diagnoses Incarcerated hernia K46.0 SBO (small bowel obstruction) K56.609
[2024-12-28] MEDS: ESCITALOPRAM OXALATE 10 MG TAB PO SCH (20:42)
[2024-12-29 08:37] LABS: Basophils # (auto) 0.02 K/uL (0.00-0.20); Basophils % (auto) 0.3 %; Eosinophils # (auto) 0.38 K/uL (0.00-0.50); Eosinophils % (auto) 6.6 %; Hematocrit (blood only) 26.6 % (37.0-47.0); Hemoglobin 8.7 g/dl (12.0-16.0); Immature Granulocytes # (auto) 0.02 K/uL (0.01-0.20); Immature Granulocytes % (auto) 0.3 %; Lymphocytes % (auto) 19.1 %; Mean Corpuscular Hemoglobin 31.6 pg (25.0-34.0); Mean Corpuscular Hgb Conc 32.7 g/dL (32.0-36.0); Mean Corpuscular Volume 96.7 fL (80.0-100.0); Mean Platelet Volume 9.2 fL (9.4-12.4); Monocytes # (auto) 0.54 K/uL (0.11-0.59); Monocytes % (auto) 9.4 %; Neutrophils # (auto) 3.69 K/uL (1.40-6.50); Neutrophils % (auto) 64.3 %; Platelet Count 258 K/uL (130-400); RDW Coefficient of Variation 13.4 % (11.5-14.5); RDW Standard Deviation 47.6 fL (36.4-46.3); Red Blood Count 2.75 M/uL (4.20-5.40); White Blood Count 5.75 K/ul (4.8-10.8)
[2024-12-29] MEDS: IBUPROFEN 200 MG TAB PO SCH (08:55)
[2024-12-29 08:56] LABS: BUN Creatinine Ratio 15.7 (10-20); Calcium 8.7 mg/dl (8.6-10.3); Creatinine Clr Calc Pharmacy 186.8 ml/min; Potassium 3.9 mmol/L (3.5-5.1)
--- NOTE | 2024-12-29 09:25 | Surgery Progress Note ---
Date of Service December 29, 2024 Assessment & Plan (1) Incarcerated hernia: Plan: POD#3 laparoscopic converted to open ventral hernia repair x2 WBC 5.7, Hbg 8.7 (8.9). Vitals stable Tolerating a diet, no nausea/vomiting Reporting low back pain.....? hospital bed vs lying in bed... encouraged OOB at least TID. Added TID ibuprofen Having discomfort with abdominal binder, we told her it's okay to take breaks from it if needed May benefit from one more day in house and plan on dispo likely to home tomorrow [facility] covering the weekend As above. Doing okay. I want her to ambulate more today. Will give her some ibuprofen for her back discomfort. Not quite ready for discharge possibly over the weekend. Admission and Anticipated Discharge Date Admission Date: December 26, 2024 Subjective Patient reporting some low back pain. She is tolerating a diet, no nausea/vomiting. Having some annoyance with her abdominal binder. Physical Exam Physical Exam: awake/alert, lying in bed Respiratory: normal respiratory effort Gastrointestinal (Abdomen): Inspection/Auscultation: + abdominal surgical incision (incisions c/d/i with dermabond); abdomen not distended Percussion/Palpation: + abdomen tender (expected post op discomfort) and abdomen soft Results & Data Vital Signs (Past 12 Hours) Vital Signs Temp Pulse Pulse Resp BP Pulse Ox O2 Del Method 12/29/24 07:45 98.1 F 76 75 16 129/81 96 Room Air PG Care Time/CCT Total # of Minutes Spent Total Time Spent with Patient: Total time spent is greater than 50% in coordination of care (as documented) at patient's floor/unit and/or counseling patient: Coding Level of Care Code 98318 Post Operative Follow-Up Diagnoses Incarcerated hernia K46.0
[2024-12-29] MEDS: ENOXAPARIN INJ 40 MG/0.4 ML SYR SQ SCH (13:25)
--- NOTE | 2024-12-30 11:53 | Surgery Progress Note ---
Date of Service December 30, 2024 Assessment & Plan (1) Incarcerated hernia: Plan: POD#4 laparoscopic converted to open ventral hernia repair x2 Vitals stable Tolerating a diet, no nausea/vomiting Reporting incisional pain... encouraged OOB at least TID. Added TID ibuprofen May benefit from one more day in house and plan on dispo likely to home tomorrow Admission and Anticipated Discharge Date Admission Date: December 26, 2024 Subjective Patient reporting some low back pain. She is tolerating a diet, no nausea/vomiting. Having some annoyance with her abdominal binder. complaining of abdominal pain, but no different from yesterday. Physical Exam Physical Exam: awake/alert, lying in bed Gastrointestinal (Abdomen): Inspection/Auscultation: + abdominal surgical incision (incisions c/d/i with dermabond); abdomen not distended Percussion/Palpation: + abdomen tender (expected post op discomfort) and abdomen soft Results & Data Vital Signs (Past 12 Hours) Vital Signs Temp Pulse Resp BP Pulse Ox O2 Del Method 12/30/24 08:57 36.5 C 70 18 110/72 95 Room Air
[2024-12-30] MEDS: ONDANSETRON INJ 2 MG/ML 2 ML VIAL IV PRN (13:08)
[2024-12-30] MEDS: KETOROLAC 30 MG/ML VIAL IV PRN (13:12)
[2024-12-30] MEDS: ACETAMINOPHEN 325 MG TAB PO PRN (17:33)
--- NOTE | 2024-12-31 10:26 | Surgery Progress Note ---
Date of Service December 31, 2024 Assessment & Plan (1) Incarcerated hernia: Plan: POD#5 laparoscopic converted to open ventral hernia repair x2 Vitals stable Tolerating a diet, no nausea/vomiting Reporting incisional pain... encouraged OOB at least TID. May benefit from one more day in house and plan on dispo likely to home tomorrow Admission and Anticipated Discharge Date Admission Date: December 26, 2024 Subjective still with significant abdominal pain. improved from yesterday; but still significant. She is tolerating a diet, no nausea/vomiting. no fevers Physical Exam Physical Exam: awake/alert, lying in bed Gastrointestinal (Abdomen): Inspection/Auscultation: + abdominal surgical incision (incisions c/d/i with dermabond); abdomen not distended Percussion/Palpation: + abdomen tender (expected post op discomfort) and abdomen soft
[2025-01-01] MEDS: POLYETHYLENE (MIRALAX) 17 GM PACK PO SCH (08:52)
--- NOTE | 2025-01-01 11:28 | Surgery Progress Note ---
Date of Service January 01, 2025 Assessment & Plan (1) H/O ventral hernia repair: Plan: Her postoperative discomfort is expected. This will likely be a 6 to 8-week recovery. We discussed management strategies for her discomfort once she is discharged. She is not had a bowel movement yet so we will add a laxative. We will reevaluate her later today for potential discharge. Admission and Anticipated Discharge Date Admission Date: December 26, 2024 Subjective Patient seen. She is doing okay. Still having some discomfort in her mid abdom en and burning. She is eating with no nausea. Physical Exam Physical Exam: Alert no acute distress Abdomen is soft. Nondistended. Expected postoperative tenderness in the mid abdomen. Results & Data Vital Signs (Past 12 Hours) Vital Signs Temp Pulse Resp BP Pulse Ox O2 Del Method 01/01/25 07:51 36.8 C 71 18 133/83 95 Room Air PG Care Time/CCT Total # of Minutes Spent Total Time Spent with Patient: Total time spent is greater than 50% in coordination of care (as documented) at patient's floor/unit and/or counseling patient: Coding Level of Care Code 66933 Post Operative Follow-Up Diagnoses H/O ventral hernia repair Z98.890; Z87.19
--- NOTE | 2025-01-02 19:47 | Discharge Summary ---
Date of Service January 02, 2025 Date of admission: 12/26/2024 Date of discharge: 01/01/2025 Admission HPI Per Admitting Provider 39-year-old female who began earlier this morning with lower abdominal pain. She has known hernias and in fact was supposed to have an appointment tomorrow with her surgeon in [place] to discuss. The superiormost hernia became very hard and extremely painful. She presented to the emergency room. CT scan shows incarcerated supraumbilical hernia with some mesenteric stranding potential partial small bowel obstruction. Discharge Data Consultations 12/26/24 16:17 Consult General Surgery Stat Procedures Performed Operation Date: 12/26/24 18:00 Actual Procedures p open Ventral Hernia (recurrent) Repair x2 with mesh(Not Applicable) - Jan Martinez DO s Laparoscopic convert to open(Not Applicable) - Jan Martinez DO Hospital Course (1) H/O ventral hernia repair: Date of admission: 12/26/2024 Date of discharge: 01/01/2025 Hospital course patient was admitted [facility] on 12/26/2024. Patient had abdominal pain and a CT scan of the abdomen pelvis showed the patient had an incarcerated ventral hernia. Updated admission Dr. Martinez took the patient to the operating room and performed a laparoscopic with conversion to open ventral hernia repair utilizing mesh. Postoperatively the patient had expected postoperative pain. Her diet was advanced in the appropriate fashion and she was deemed stable for discharge home on 01/01/2025. She was instructed on appropriate wound care, diet, and activity. She was instructed to follow-up Dr. Martinez in the clinic in 1 to 2 weeks. Coding Level of Care Code 85334 IN/OBS DISCH 30 MIN/LESS Diagnoses H/O ventral hernia repair Z98.890; Z87.19
== END 2025-01-01 14:38 | disposition home or self-care (01) | DRG 355 ==
LOC: ED 14:30 → OR 18:24 → 3N 21:55
DX: K43.6 Other and unspecified ventral hernia with obstruction, without gangrene; Z79.899 Other long term (current) drug therapy; Z79.85 Long-term (current) use of injectable non-insulin antidiabetic drugs; Z87.891 Personal history of nicotine dependence

== ENCOUNTER 2025-03-01 13:07 | Inpatient (IN) ==
--- NOTE | 2025-03-01 13:23 | Emergency Department Note ---
Impression & Plan Sepsis, Leukocytosis, Hypotension, LORENA (acute kidney injury), Neck pain ED Provider Note CHIEF COMPLAINT: Leg pain, fever, headaches, head, shoulder, neck pain HISTORY OF PRESENTING ILLNESS: The patient is a 39-year-old female who presents to the emergency department stating that on Wednesday night she was playing with her son on the swing injuring her right knee and inner thigh area. She then states that on Wednesday morning she woke up with a fever of 103, neck pain, and feeling stiff. She was evaluated in urgent care yesterday and her temperature was 104.6. She also had labs completed yesterday at urgent care showing a high white blood cell count as well as blood in her urine. She has not been able to contact them since regarding any other results. She has had multiple episodes of vomiting yesterday and today. Is alternating Tylenol/ibuprofen. She denies dizziness, lightheadedness, chest pain, shortness of breath, abdominal pain, urinary symptoms, sick contacts, recent travel, known tick bites. REVIEW OF SYSTEMS: See HPI for pertinent positives and pertinent negatives. ALLERGIES: NKDA MEDICATIONS: See below PAST MEDICAL HISTORY: See below PHYSICAL EXAM: VITALS: Vitals are noted on the nurse's note and reviewed by myself. Vital signs stable. GENERAL: 39-year-old female, in no acute distress, nondiaphoretic, well- developed well-nourished. SKIN: Capillary refill less than 2 seconds. Erythema and warmth appreciated on the right inner thigh. HEENT: Normocephalic. PERRLA. EOMI. Nares patent. Mucous membranes moist. Neck is supple without nuchal rigidity. Kernig and Brudzinski's negative. Neck has full range of motion. HEART: Regular rate and rhythm without murmurs gallops or rubs. LUNGS: CTA BL without wheezes, rales or rhonchi. No retractions or accessory muscle use. ABDOMEN: Positive bowel sounds x 4. Soft, nontender, without masses or organomegaly. No guarding or rebound tenderness. MUSCULOSKELETAL: Tenderness upon palpation to the posterior aspect of the right knee as well as the right inner thigh. Patient has full range of motion but with discomfort. No tenderness upon palpation to the joint line. Patient is able to ambulate but with discomfort. No pedal edema. No calf tenderness. NEURO: Patient was alert and oriented. No focal neurological deficits. DIFFERENTIAL DIAGNOSIS: Meningitis, sepsis, viral infection, UTI, pyelonephritis, sprain, strain, fracture, dislocation, ED COURSE AND MEDICAL DECISION MAKING: HISTORY FROM INDEPENDENT HISTORIAN: The patient herself. MEDICATIONS GIVEN: 3 L normal saline IV, Tylenol 1000 mg IV, Zofran 4 mg IV MONITOR: Continuous cardiac care unit nurse: Order was placed for continuous cardiac care unit nurse. Patient was placed on the cardiac care unit nurse and continuous pulse ox. Patient was noted to be in normal sinus rhythm at an initial rate of 90 bpm per my interpretation. EKG: EKG was interpreted by myself as normal sinus rhythm. No obvious arrhythmias. No ST or T wave abnormality. No previous EKG for comparison. INTERPRETATION OF LABS: I interpreted the labs with full lab results as below in the lab section of this note. Pertinent lab results discussed in the MDM section below. INTERPRETATION OF IMAGING: Imaging studies were interpreted by myself and read by radiology as per the imaging section of this note. X-ray cervical spine - C5-[address] - No acute intracranial abnormality. Evidence of Chiari I malformation Ultrasound right lower extremity - No evidence of DVT. CT abdomen pelvis - Hepatomegaly liver increased from 19 to 22 cm. Moderate gallbladder distention with no infection. Postsurgical repair of ventral hernia with adhesion to small bowel. No obstruction or free air. Bilateral nonobstructing nephrolithiasis. Chest x-ray - No acute cardiopulmonary abnormality. EXTERNAL RECORDS REVIEWED: [facility] urgent care visit from yesterday 02/28/2025 - Blood work was obtained at the visit showing a WBC 18.23. Urinalysis showed blood, protein, and urine WBC. X-ray of the right knee was obtained at this time showing no acute fracture or abnormality. Anaplasma, Babesia, and Lyme screening negative. ESCALATION OF CARE CONSIDERED: Escalation of care was considered after the patient presented stating that she has had fevers of 104.6. She also reports an elevated white blood cell count, headache, neck pain, and stiffness. A full workup was completed showing leukocytosis, LORENA, she was hypotensive. The patient was admitted to medicine for sepsis workup. CONSULTATIONS: On-call [facility] hospitalist - Dr. Gant -presented the patient to the provider. They confirmed that they would evaluate them at bedside. They did request that an LP be performed. See my attendings, Dr. Weiner, regarding attempt at an LP here in the emergency department. The plan was for the patient to have 1 with IR in the morning. They agreed to this plan and she was admitted to medicine in stable condition. MDM SUMMARY: I evaluated the 39-year-old female who presents to the emergency department due to right leg pain, fever, headache, and neck stiffness. See HPI and physical exam above. A full workup was completed due to the patient having fevers as high as 104.6 as well as leukocytosis at urgent care yesterday. His records were reviewed and can be seen in detail above. IV access was established and labs were obtained. Leukocytosis elevated now 20.55. Fluid resuscitation was provided 30 mg/kg. 3 L were given. He was still mildly hypotensive. Sodium lowered 132. Potassium mildly lowered 94. BUN 34. Creatinine 1.82. These are acutely elevated for the patient. Procalcitonin elevated 4.94. Lactate normal 1.2. All laboratory results were thoroughly reviewed with the patient. Due to these findings a urinalysis was obtained as well as many images to look for source of infection. X-ray cervical spine shows only degenerative changes. Head CT shows no acute intracranial abnormality. CT abdomen pelvis shows no acute abnormality. Chest x-ray shows no acute cardiopulmonary abnormality. Urinalysis shows 2+ protein, trace ketones, 3+ blood, 1+ leukocyte Estrace. This is not a clean-catch. Patient denies all urinary symptoms. Urine will be sent for culture. An ultrasound of the right lower extremity was obtained due to the patient injuring her right knee and inner thigh. An x-ray was obtained at urgent care yesterday showing no abnormality in the right knee. Ultrasound shows no DVT. There is no overlying secondary infection or cellulitis appreciated on exam. After the full workup was completed the patient was admitted to medicine which can be seen in detail above. Patient agrees to admission for further investigation and treatment. The patient was admitted in stable condition and was started on antibiotics by the hospitalist team. DIAGNOSIS: Sepsis, leukocytosis, hypotension, LORENA, neck pain The chart was completed utilizing [employer] voice recognition software. Grammatical errors, random word insertions, pronoun errors, and incomplete sentences are an occasional consequence of this system due to software limitations, ambient noise, and hardware issues. Any formal questions or concerns about the content, text, or information contained within the body of this dictation should be directly addressed to the provider for clarification. Past Med/Surg History Problem List (Updated 03/02/25 @ 19:15 by Astrid Romero PA-C) Hypotension (Acute) Leukocytosis (Acute) Sepsis (Acute) Acute pain of right lower extremity Neck pain (Acute) LORENA (acute kidney injury) (Acute) Abnormal urinalysis Sepsis Persistent fever Headache H/O ventral hernia repair (12/26/24) Laparoscopic convert to open Ventral Hernia (recurrent) Repair x2 with mesh(Not Applicable) - Jan Martinez, DO Incarcerated hernia (Acute) SBO (small bowel obstruction) (Acute) Incarcerated ventral hernia Abnormal test (Acute 03/23/14) Fracture of distal fibula (Acute) Medical History Vomiting Recurrent ventral hernia Social History Smoking Status: Former smoker Second Hand Exposure: Yes (sometimes); Do You Dip or Chew Tobacco: No; Hx Alcohol Use: Yes Alcohol type: wine and hard liquor Hx Substance Use: No Preferred Language: Welsh Communication Ability: Effective Banana Room Cutter Required: No Beliefs That Will Affect Care: None Current Living Situation: Family Other Information That Helps Us Care for You: No Feels Safe at Home: Yes Safety Concerns: Feels Safe At This Time Assistive Devices: None Allergies Allergies Allergy/AdvReac Type Severity Reaction Status Date / Time No Known Allergies Allergy Unverified 01/10/25 09:03 Home Meds Home Medications Medication Instructions Recorded Confirmed acetaminophen 325 mg tablet 325 mg PO DIRECTED PRN Pain 12/26/24 03/01/25 (Tylenol) albuterol sulfate 90 mcg/actuation 1 puff inhalation DIRECTED PRN 12/26/24 03/01/25 aerosol inhaler sob ashwagandha extract 1 tab PO DAILY 12/26/24 03/01/25 buspirone 10 mg tablet 10 mg PO TID PRN Anxiety 12/26/24 03/01/25 famotidine 20 mg tablet 20 mg PO BID 12/26/24 03/01/25 ibuprofen 200 mg tablet 200 mg PO DIRECTED PRN Pain 12/26/24 03/01/25 escitalopram oxalate 10 mg tablet 20 mg PO DAILY 01/10/25 03/01/25 ondansetron HCl 4 mg tablet 4 mg PO DIRECTED PRN n/v 03/01/25 03/01/25 semaglutide 1 mg/dose (4 mg/3 mL) 1 mg subcut WK 03/01/25 03/01/25 subcutaneous pen injector Results & Data (ED) Vital Signs Vital Signs - 24 hr 03/01/25 13:10 03/01/25 13:39 03/01/25 13:59 Temperature 36.4 C L Temperature Source Temporal Artery Scan Pulse Rate 102 H 95 H Pulse Rate [Finger] 96 H Pulse Rhythm Regular Pulse Strength Normal Respiratory Rate 16 20 Respiratory Effort / Characteristics Non-Labored Spontaneous Non-Labored Spontaneous Respiratory Depth Normal Normal Respiratory Pattern Regular Blood Pressure 106/69 Blood Pressure [Right Arm] 95/66 L Blood Pressure Mean 81 Blood Pressure Mean [Right Arm] 75 Blood Pressure Position [Right Arm] Pulse Oximetry 98 96 Oxygen Delivery Method Room Air Room Air Sepsis Recent Fever Within 48 Hours Yes Sepsis New/Unexplained Change in Mental Status N/A Sepsis Action Taken by Nursing No Action Required 03/01/25 15:06 03/01/25 16:43 Temperature 36.7 C Temperature Source Oral Pulse Rate Pulse Rate [Finger] 86 Pulse Rhythm Pulse Strength Respiratory Rate 20 Respiratory Effort / Characteristics Respiratory Depth Respiratory Pattern Blood Pressure Blood Pressure [Right Arm] 91/54 L Blood Pressure Mean Blood Pressure Mean [Right Arm] 66 Blood Pressure Position [Right Arm] Sitting Pulse Oximetry 96 Oxygen Delivery Method Sepsis Recent Fever Within 48 Hours Sepsis New/Unexplained Change in Mental Status Sepsis Action Taken by Nursing Laboratory Data 03/02/25 06:58 03/02/25 06:58 Lab Results 03/01/25 03/01/25 03/01/25 Range/Units 13:40 13:48 13:50 WBC 20.55 H (4.8-10.8) K/ul RBC 3.85 L (4.20-5.40) M/uL Hgb 11.6 L (12.0-16.0) g/dl Hct 35.1 L (37.0-47.0) % MCV 91.2 (80.0-100.0) fL MCH 30.1 (25.0-34.0) pg MCHC 33.0 (32.0-36.0) g/dL RDW Std Deviation 43.9 (36.4-46.3) fL RDW Coeff of Tram 13.2 (11.5-14.5) % Plt Count 265 (130-400) K/uL MPV 9.9 (9.4-12.4) fL Immature Gran % (Auto) 1.9 % Neut % (Auto) 89.8 % Lymph % (Auto) 1.5 % [place] % (Auto) 6.3 % Eos % (Auto) 0.2 % Baso % (Auto) 0.3 % Neut # (Auto) 18.45 H (1.40-6.50) K/uL Lymph # (Auto) 0.30 L (1.20-3.40) K/uL [place] # (Auto) 1.29 H (0.11-0.59) K/uL Eos # (Auto) 0.04 (0.00-0.50) K/uL Baso # (Auto) 0.07 (0.00-0.20) K/uL Immature Gran # (Auto) 0.40 H (0.01-0.20) K/uL Toxic Vacuolation 1+ Dohle Bodies 1+ Polychromasia 1+ Sodium 132 L (136-145) mmol/L Potassium 3.4 L (3.5-5.1) mmol/L Chloride 97 L (98-107) mmol/L Carbon Dioxide 23 (21-32) mmol/L Anion Gap 12 H (3-11) BUN 34 H (6-23) mg/dl Creatinine 1.82 H (0.6-1.2) mg/dl Est Cr Clr Drug Dosing 50.3 ml/min eGFR 35.82 BUN/Creatinine Ratio 18.7 (10-20) Glucose 110 H (70-99(Fasting)) mg/dl Lactate 1.2 (0.4-2.0) mmol/L Calcium 9.4 (8.6-10.3) mg/dl Magnesium 1.8 (1.7-2.4) mg/dl Total Bilirubin 0.9 (0.2-1.0) mg/dl AST 12 L (13-39) U/L ALT 17 (7-52) U/L Alkaline Phosphatase 72 (34-104) U/L Total Creatine Kinase 34 (26-192) U/L Total Protein 7.5 (6.0-8.3) gm/dl Albumin 3.8 (3.4-5.0) gm/dl Globulin 3.7 (2.5-4.0) gm/dl Albumin/Globulin Ratio 1.0 (0.9-2) Procalcitonin 4.94 H (0-0.5) ng/ml Urine Color Urine Appearance (Clear) Urine pH (4.5-7.5) Ur Specific [place] (1.000-1.030) Urine Protein (Negative) Urine Glucose (UA) (Negative) Urine Ketones (Negative) Urine Blood (Negative) Urine Nitrite (Negative) Urine Bilirubin (Negative) Urine Urobilinogen (Negative) Ur Leukocyte Esterase (Negative) Urine WBC (Auto) (0-5) /hpf Urine RBC (Auto) (0-2) /hpf U Hyaline Cast (Auto) (0-2) /lpf U Epithel Cells (Auto) (0-2) /hpf Urine Bacteria (Auto) (None Seen) Calcium Oxalate Crystal (None Prsent) Hyaline Casts (None Presnt) /lpf Granular Casts (None Prsent) /lpf Urine Comment Adenovirus (PCR) Not Detected (NotDetected) B. pertussis DNA (PCR) Not Detected (NotDetected) B.parapertussis DNA PCR Not Detected (NotDetected) Lyme Disease Screen Negative (Negative) C. pneumoniae DNA (PCR) Not Detected (NotDetected) Coronavirus OC43 (PCR) Not Detected (NotDetected) Coronavirus HKU1 (PCR) Not Detected (NotDetected) Coronavirus 229E (PCR) Not Detected (NotDetected) SARS-CoV-2 (PCR) Not Detected (NotDetected) Coronavirus NL63 (PCR) Not Detected (NotDetected) Monoscreen Negative (Negative) Human Metapneumovir PCR Not Detected (NotDetected) Influenza Type A (PCR) Not Detected (NotDetected) Influenza Type B (PCR) Not Detected (NotDetected) M. pneumoniae (PCR) Not Detected (NotDetected) Parainfluenza 1 (PCR) Not Detected (NotDetected) Parainfluenza 2 (PCR) Not Detected (NotDetected) Parainfluenza 3 (PCR) Not Detected (NotDetected) Parainfluenza 4 (PCR) Not Detected (NotDetected) RSV (PCR) Not Detected (NotDetected) Entero/Rhino (PCR) Not Detected (NotDetected) 03/01/25 Range/Units 15:47 WBC (4.8-10.8) K/ul RBC (4.20-5.40) M/uL Hgb (12.0-16.0) g/dl Hct (37.0-47.0) % MCV (80.0-100.0) fL MCH (25.0-34.0) pg MCHC (32.0-36.0) g/dL RDW Std Deviation (36.4-46.3) fL RDW Coeff of Tram (11.5-14.5) % Plt Count (130-400) K/uL MPV (9.4-12.4) fL Immature Gran % (Auto) % Neut % (Auto) % Lymph % (Auto) % [place] % (Auto) % Eos % (Auto) % Baso % (Auto) % Neut # (Auto) (1.40-6.50) K/uL Lymph # (Auto) (1.20-3.40) K/uL [place] # (Auto) (0.11-0.59) K/uL Eos # (Auto) (0.00-0.50) K/uL Baso # (Auto) (0.00-0.20) K/uL Immature Gran # (Auto) (0.01-0.20) K/uL Toxic Vacuolation Dohle Bodies Polychromasia Sodium (136-145) mmol/L Potassium (3.5-5.1) mmol/L Chloride (98-107) mmol/L Carbon Dioxide (21-32) mmol/L Anion Gap (3-11) BUN (6-23) mg/dl Creatinine (0.6-1.2) mg/dl Est Cr Clr Drug Dosing ml/min eGFR BUN/Creatinine Ratio (10-20) Glucose (70-99(Fasting)) mg/dl Lactate (0.4-2.0) mmol/L Calcium (8.6-10.3) mg/dl Magnesium (1.7-2.4) mg/dl Total Bilirubin (0.2-1.0) mg/dl AST (13-39) U/L ALT (7-52) U/L Alkaline Phosphatase (34-104) U/L Total Creatine Kinase (26-192) U/L Total Protein (6.0-8.3) gm/dl Albumin (3.4-5.0) gm/dl Globulin (2.5-4.0) gm/dl Albumin/Globulin Ratio (0.9-2) Procalcitonin (0-0.5) ng/ml Urine Color Dark Yellow Urine Appearance Turbid A (Clear) Urine pH 5.0 (4.5-7.5) Ur Specific [place] 1.033 H (1.000-1.030) Urine Protein 2+ H (Negative) Urine Glucose (UA) Negative (Negative) Urine Ketones Trace H (Negative) Urine Blood 3+ H (Negative) Urine Nitrite Negative (Negative) Urine Bilirubin 2+ H (Negative) Urine Urobilinogen Positive H (Negative) Ur Leukocyte Esterase 1+ H (Negative) Urine WBC (Auto) 6-10 H (0-5) /hpf Urine RBC (Auto) >20 H (0-2) /hpf U Hyaline Cast (Auto) >20 H (0-2) /lpf U Epithel Cells (Auto) 11-20 H (0-2) /hpf Urine Bacteria (Auto) 2+ H (None Seen) Calcium Oxalate Crystal Present A (None Prsent) Hyaline Casts Present A (None Presnt) /lpf Granular Casts Present A (None Prsent) /lpf Urine Comment Adenovirus (PCR) (NotDetected) B. pertussis DNA (PCR) (NotDetected) B.parapertussis DNA PCR (NotDetected) Lyme Disease Screen (Negative) C. pneumoniae DNA (PCR) (NotDetected) Coronavirus OC43 (PCR) (NotDetected) Coronavirus HKU1 (PCR) (NotDetected) Coronavirus 229E (PCR) (NotDetected) SARS-CoV-2 (PCR) (NotDetected) Coronavirus NL63 (PCR) (NotDetected) Monoscreen (Negative) Human Metapneumovir PCR (NotDetected) Influenza Type A (PCR) (NotDetected) Influenza Type B (PCR) (NotDetected) M. pneumoniae (PCR) (NotDetected) Parainfluenza 1 (PCR) (NotDetected) Parainfluenza 2 (PCR) (NotDetected) Parainfluenza 3 (PCR) (NotDetected) Parainfluenza 4 (PCR) (NotDetected) RSV (PCR) (NotDetected) Entero/Rhino (PCR) (NotDetected) Administered Medications Acetaminophen (Acetaminophen 500 Mg Tab) 1,000 mg PO Q8H PAWAN Stop: 04/01/25 15:29 Last Admin: 03/02/25 16:27 Dose: 1,000 mg Documented By: SCOTF Buspirone HCl (Buspirone 5 Mg Tab) 10 mg PO TID PRN PRN Reason: Anxiety Stop: 03/31/25 17:13 Last Admin: 03/02/25 07:46 Dose: 10 mg Documented By: Admin: 03/01/25 19:34 Dose: 10 mg Documented By: ROMAN Escitalopram Oxalate (Escitalopram Oxalate 20 Mg Tab) 20 mg PO DAILY PAWAN Stop: 04/01/25 08:59 Last Admin: 03/02/25 07:46 Dose: 20 mg Documented By: JAQUELINE Famotidine (Famotidine 20 Mg Tab) 20 mg PO BID PAWAN Stop: 03/31/25 20:59 Last Admin: 03/02/25 10:34 Dose: 20 mg Documented By: Admin: 03/01/25 21:52 Dose: 20 mg Documented By: ROMAN Sodium Chloride (Nss) 1,000 mls @ 125 mls/hr IV .Q8H PAWAN Stop: 03/04/25 18:47 Last Admin: 03/02/25 10:34 Dose: 125 mls/hr Documented By: Infusion: 03/02/25 10:34 Dose: Infused Documented By: Admin: 03/02/25 03:44 Dose: 125 mls/hr Documented By: Infusion: 03/02/25 03:42 Dose: Infused Documented By: Admin: 03/01/25 19:42 Dose: 125 mls/hr Documented By: ROMAN Daptomycin 500 mg/ Syringe 10 mls @ 5 mls/min IV Q24H PAWAN; Protocol Stop: 03/04/25 17:59 Last Admin: 03/02/25 17:41 Dose: 5 mls/min Documented By: JAQUELINE Ceftriaxone Sodium (Rocephin) 2,000 mg in 50 mls @ 100 mls/hr IV Q12H PAWAN Stop: 03/12/25 17:59 Last Infusion: 03/02/25 18:40 Dose: Infused Documented By: Admin: 03/02/25 18:11 Dose: 100 mls/hr Documented By: JAQUELINE Ondansetron HCl (Ondansetron Inj 2 Mg/Ml 2 Ml Vial) 4 mg IV Q6H PRN PRN Reason: Nausea Stop: 03/31/25 18:47 Last Admin: 03/02/25 03:26 Dose: 4 mg Documented By: Admin: 03/01/25 19:50 Dose: 4 mg Documented By: ROMAN Oxycodone HCl (Oxycodone Hcl Ir 5 Mg Tab (Immediate Release)) 7.5 mg PO Q3HWA PRN PRN Reason: Pain Stop: 03/16/25 15:23 Last Admin: 03/02/25 17:41 Dose: 7.5 mg Documented By: JAQUELINE Discontinued Medications Acetaminophen (Acetaminophen 325 Mg Tab) 650 mg PO Q4H PRN PRN Reason: Pain or Fever Stop: 03/31/25 18:47 Last Admin: 03/01/25 23:15 Dose: 650 mg Documented By: Admin: 03/01/25 19:32 Dose: 650 mg Documented By: ROMAN Gadobutrol (Gadobutrol 65ml Vial) 11 ml IV ONCE ONE Stop: 03/02/25 02:33 Last Admin: 03/02/25 02:33 Dose: 11 ml Documented By: KATARINA Hydromorphone HCl (Hydromorphone Inj 0.5 Mg/0.5 Ml Syr) 0.5 mg IV NOW STA Stop: 03/01/25 19:40 Last Admin: 03/01/25 19:49 Dose: 0.5 mg Documented By: ROMAN Hydromorphone HCl (Hydromorphone Inj 0.5 Mg/0.5 Ml Syr) 0.5 mg IV Q4H PRN PRN Reason: Mod-Sev Pain (Scale 4-10) Stop: 03/15/25 23:20 Last Admin: 03/02/25 12:27 Dose: 0.5 mg Documented By: Admin: 03/02/25 07:46 Dose: 0.5 mg Documented By: Admin: 03/02/25 03:26 Dose: 0.5 mg Documented By: SJJanene Admin: 03/02/25 00:06 Dose: 0.5 mg Documented By: SJM Sodium Chloride (Nss) 1,000 mls @ 999 mls/hr IV .Q1H1M PAWAN Stop: 03/01/25 16:15 Last Infusion: 03/01/25 18:10 Dose: Infused Documented By: Admin: 03/01/25 15:54 Dose: 999 mls/hr Documented By: Infusion: 03/01/25 15:16 Dose: Infused Documented By: Admin: 03/01/25 14:15 Dose: 999 mls/hr Documented By: QGV Acetaminophen (Ofirmev) 1,000 mg in 100 mls @ 400 mls/hr IV NOW STA Stop: 03/01/25 14:15 Last Infusion: 03/01/25 14:40 Dose: Infused Documented By: Admin: 03/01/25 14:15 Dose: 400 mls/hr Documented By: QGV Sodium Chloride (Nss) 1,000 mls @ 999 mls/hr IV .Q1H1M ONE Stop: 03/01/25 16:46 Last Infusion: 03/01/25 18:49 Dose: Infused Documented By: Admin: 03/01/25 18:00 Dose: 999 mls/hr Documented By: NA Daptomycin 500 mg/ Syringe 10 mls @ 5 mls/min IV NOW ONE; Protocol Stop: 03/01/25 16:32 Last Admin: 03/01/25 17:52 Dose: 5 mls/min Documented By: NA Piperacillin Sod/Tazobactam Sod (Zosyn) 4.5 gm in 100 mls @ 200 mls/hr IV NOW ONE; Protocol Stop: 03/01/25 16:50 Last Admin: 03/01/25 17:55 Dose: Not Given Documented By: NA Ceftriaxone Sodium (Rocephin) 2,000 mg in 50 mls @ 100 mls/hr IV Q12H PAWAN Stop: 03/04/25 05:59 Last Infusion: 03/02/25 05:28 Dose: Infused Documented By: SJJanene Admin: 03/02/25 04:58 Dose: 100 mls/hr Documented By: ROMAN Ceftriaxone Sodium (Rocephin) 2,000 mg in 50 mls @ 100 mls/hr IV NOW STA Stop: 03/01/25 18:23 Last Infusion: 03/01/25 18:49 Dose: Infused Documented By: Admin: 03/01/25 17:59 Dose: 100 mls/hr Documented By: JOSE Acetaminophen (Ofirmev) 1,000 mg in 100 mls @ 400 mls/hr IV Q8H PRN PRN Reason: Pain or Fever Stop: 03/05/25 00:22 Last Infusion: 03/02/25 08:02 Dose: Infused Documented By: Admin: 03/02/25 07:47 Dose: 400 mls/hr Documented By: JAQUELINE Dexamethasone 15 mg/ Dextrose 28.75 mls @ 57.5 mls/hr IV Q6 PAWAN Stop: 04/01/25 11:59 Last Infusion: 03/02/25 12:48 Dose: Infused Documented By: Admin: 03/02/25 12:19 Dose: 57.5 mls/hr Documented By: GPF Ampicillin Sodium 2,000 mg/ (Sodium Chloride) 100 mls @ 200 mls/hr IV Q4H PAWAN Stop: 03/12/25 10:29 Last Infusion: 03/02/25 14:56 Dose: Infused Documented By: Admin: 03/02/25 14:11 Dose: 200 mls/hr Documented By: Infusion: 03/02/25 11:51 Dose: Infused Documented By: Admin: 03/02/25 11:12 Dose: 200 mls/hr Documented By: GPKristie Ioversol (Optiray 320 100ml) 90 ml IV ONCE ONE Stop: 03/01/25 14:48 Last Admin: 03/01/25 14:48 Dose: 90 ml Documented By: MARINA Lidocaine (Lidocaine 5% 1 Patch) 2 patch TD DAILY STA Stop: 03/02/25 15:26 Last Admin: 03/02/25 16:28 Dose: 2 patch Documented By: GPKristie Lidocaine HCl (Lidocaine 1% Local 20 Ml Vial) 30 ml INFIL NOW ONE Stop: 03/01/25 17:08 Last Admin: 03/01/25 17:55 Dose: 3 ml Documented By: SAMUEL Ondansetron HCl (Ondansetron Inj 2 Mg/Ml 2 Ml Vial) 4 mg IV NOW STA Stop: 03/01/25 14:02 Last Admin: 03/01/25 14:15 Dose: 4 mg Documented By: QGV Potassium Chloride (Potassium Chloride Crtab 20 Meq Tabcr) 20 meq PO NOW STA Stop: 03/01/25 18:07 Last Admin: 03/01/25 19:32 Dose: 20 meq Documented By: SJM Imaging Data Radiologist's Impression: Cervical Spine X-Ray 03/01/25 13:37 XR cervical spine 2 or 3V CLINICAL HISTORY: neck pain, stiffness COMPARISON STUDY: None FINDINGS: There are mild degenerative findings at C5-6. No fracture or subluxation. Prevertebral soft tissues have normal thickness. IMPRESSION: C5-6 degenerative changes. ACT 112: Negative or not required by law. Electronically signed by: Cheng Briseno M.D. 03/01/2025 2:[address] 03/01/25 13:37 CT SCAN OF THE BRAIN WITHOUT IV CONTRAST CLINICAL HISTORY: Headache COMPARISON STUDY: Facial bone CT dated 05/23/2012 TECHNIQUE: Unenhanced axial CT scan of the brain is performed from the vertex to the skull base. Images are reviewed in the axial, sagittal, and coronal planes. A dose lowering technique was utilized adhering to the principles of ALARA. CT DOSE: 547.75 mGy.cm FINDINGS: Brain parenchyma: The brain parenchyma is normal in appearance. There is no hemorrhage, mass effect, or evidence of acute territorial ischemia by CT criteria. Fu-white matter differentiation is preserved. No extra-axial fluid collection is seen. There is cerebellar tonsillar ectopia consistent with a Chiari I malformation. Ventricles, sulci, cisterns: Normal in configuration. Intracranial vasculature: The visualized intracranial vasculature at the skull base is normal in appearance. Calvarium: Unremarkable. Sinuses and mastoids: The visualized paranasal sinuses are clear. The mastoid air cells are well pneumatized. Orbits: The bony orbits are grossly intact. IMPRESSION: 1. No acute intracranial abnormality. 2. 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 ACT 112: Negative or not required by law. Electronically signed by: Nick Hdez M.D. 03/01/2025 3:08 PM Venous Doppler Study 03/01/25 13:37 US venous doppler LE RT HISTORY: leg pain, swelling COMPARISON: None TECHNIQUE: Multiple real-time sonographic images of the right lower extremity deep venous structures were obtained assessing grayscale appearance, color and spectral flow. FINDINGS: No evidence of DVT seen at the right lower extremity. Small normal- appearing lymph node measuring 1.4 cm is incidentally seen in the right popliteal fossa. IMPRESSION: No evidence of DVT seen. ACT 112: Negative or not required by law. The above report was generated using voice recognition software. It may contain grammatical, syntax or spelling errors. Electronically signed by: Cheng Briseno M.D. 03/01/2025 3:45 PM Abdomen/Pelvis CT 03/01/25 13:[address] WITH IV CONTRAST CT DOSE: 1348.18 mGy.cm HISTORY: blood in urine, white count TECHNIQUE: Multiaxial CT images of the abdomen and pelvis were performed following the IV administration of 90 cc of Optiray, A dose lowering technique was utilized adhering to the principles of ALARA. COMPARISON STUDY: 12/26/2024 FINDINGS: Since the prior examination, there are ventral hernias have been repaired and there is a ventral scar from the prior surgery. Several small bowel loops appear to be tethered to the surgical site along the peritoneal surface anteriorly. There is no evidence of obstruction. There is no free air in the abdomen. The liver remains enlarged. The gallbladder is moderately distended. There are no gallstones identified. The pancreas and adrenal glands and spleen are unremarkable. The kidneys demonstrate bilateral nonobstructive stones as before. There is no bowel obstruction or free air as previously stated. There is no aortic aneurysm or periaortic adenopathy. In the pelvis, the appendix is not identified. The urinary bladder is empty and cannot be evaluated. The uterus is absent. IMPRESSION: Hepatomegaly with no focal liver lesions identified. The liver has increased in size from 19 to 22 cm since the prior examination. Moderate gallbladder distention with no secondary signs of inflammation. Postsurgical repair of ventral hernias with probable adhesions tethering the small bowel loops against the anterior peritoneal surface. No obstruction or free air. Bilateral, nonobstructive2 nephrolithiasis redemonstrated. ACT 112: Negative or not required by law. The above report was generated using voice recognition software. It may contain grammatical, syntax or spelling errors. Electronically signed by: Kasey Delong M.D. 03/01/2025 3:16 PM Chest X-Ray 03/01/25 14:40 XR chest 1V portable CLINICAL HISTORY: FEVER COMPARISON STUDY: None FINDINGS: Single view portable chest demonstrates no acute cardiopulmonary process. Is no airspace opacity or pleural effusion. The heart and pulmonary vascularity are normal for technique. IMPRESSION: Negative portable chest ACT 112: Negative or not required by law. Electronically signed by: Kasey Delong M.D. 03/01/2025 2:51 PM Discharge Plan Visit Data Chief Complaint: Leg Injury/Pain Stated Complaint: LEG PAIN, FEVER,HEADACHE,HEAD,SHOULDER,NECK PAIN ED Provider: Nick Weiner ED Midlevel Provider: Astrid Romero Discharge Problem: Sepsis, Leukocytosis, Hypotension, LORENA (acute kidney injury), Neck pain Patient Disposition: Admitted As Inpatient Condition: Fair Discharge Instructions Interventions: ED Discharge Assessment Last Done: 03/01/25 18:12 Discharge Problem: Sepsis Qualifiers: Sepsis type: sepsis due to unspecified organism Sepsis acute organ dysfunction status: with acute organ dysfunction Severe sepsis acute organ dysfunction type: acute renal failure Acute renal failure type: unspecified Severe sepsis shock status: unspecified Qualified Code(s): A41.9 - Sepsis, unspecified organism Leukocytosis Qualifiers: Leukocytosis type: unspecified Qualified Code(s): D72.829 - Elevated white blood cell count, unspecified Hypotension Qualifiers: Hypotension type: unspecified hypotension type Qualified Code(s): I95.9 - Hypotension, unspecified
[2025-03-01 13:57] LABS: Hematocrit (blood only) 35.1 % (37.0-47.0); Hemoglobin 11.6 g/dl (12.0-16.0); Mean Corpuscular Hemoglobin 30.1 pg (25.0-34.0); Mean Corpuscular Volume 91.2 fL (80.0-100.0); Platelet Count 265 K/uL (130-400); RDW Standard Deviation 43.9 fL (36.4-46.3); Red Blood Count 3.85 M/uL (4.20-5.40); White Blood Count 20.55 K/ul (4.8-10.8)
[2025-03-01 14:15] LABS: Dohle Bodies 1+; Immature Granulocytes # (auto) 0.40 K/uL (0.01-0.20); Immature Granulocytes % (auto) 1.9 %; Polychromasia 1+; Toxic Vacuolation 1+
[2025-03-01] MEDS: ACETAMINOPHEN 1,000 MG/100 ML VIAL IV STA (14:15)
[2025-03-01] MEDS: SODIUM CHLORIDE 0.9% 1,000 ML IV SCH ×2 (14:15→19:42)
[2025-03-01] MEDS: ONDANSETRON INJ 2 MG/ML 2 ML VIAL IV STA (14:15)
[2025-03-01 14:20] LABS: Alanine Aminotransferase 17.0 U/L (7-52); Albumin Globulin Ratio 1.0 (0.9-2); Alkaline Phosphatase 72.0 U/L (34-104); Anion Gap 12.0 (3-11); Bilirubin,Total 0.9 mg/dl (0.2-1.0); Blood Urea Nitrogen 34.0 mg/dl (6-23); Calcium 9.4 mg/dl (8.6-10.3); Carbon Dioxide 23.0 mmol/L (21-32); Chloride 97.0 mmol/L (98-107); Creatinine Clr Calc Pharmacy 50.3 ml/min; Globulin 3.7 gm/dl (2.5-4.0); Glucose 110.0 mg/dl (70-99(Fasting)); Potassium 3.4 mmol/L (3.5-5.1); Sodium 132.0 mmol/L (136-145); Total Protein 7.5 gm/dl (6.0-8.3)
--- NOTE | 2025-03-01 14:47 | XRay Report ---
XR cervical spine 2 or 3V CLINICAL HISTORY: neck pain, stiffness COMPARISON STUDY: None FINDINGS: There are mild degenerative findings at C5-6. No fracture or subluxation. Prevertebral soft tissues have normal thickness. IMPRESSION: C5-6 degenerative changes. ACT 112: Negative or not required by law. Electronically signed by: Cheng Briseno M.D. 03/01/2025 2:46 PM
[2025-03-01] MEDS: OPTIRAY 320 100ml IV ONE (14:48)
[2025-03-01 14:53] LABS: Chlamydia pneumoniae PCR Not Detected (NotDetected); Coronavirus 229E PCR Not Detected (NotDetected); Coronavirus CoV-2 (COVID19)PCR Not Detected (NotDetected); Coronavirus HKU1 PCR Not Detected (NotDetected); Coronavirus NL63 PCR Not Detected (NotDetected); Coronavirus OC43PCR Not Detected (NotDetected); Human Metapneumovirus PCR Not Detected (NotDetected); Parainfluenza Virus 1 PCR Not Detected (NotDetected); Parainfluenza Virus 2 PCR Not Detected (NotDetected); Parainfluenza Virus 3 PCR Not Detected (NotDetected); Parainfluenza Virus 4 PCR Not Detected (NotDetected); Respiratory Syncytial VirusPCR Not Detected (NotDetected); Rhinovirus/Enterovirus PCR Not Detected (NotDetected)
--- NOTE | 2025-03-01 14:53 | XRay Report ---
XR chest 1V portable CLINICAL HISTORY: FEVER COMPARISON STUDY: None FINDINGS: Single view portable chest demonstrates no acute cardiopulmonary process. Is no airspace op acity or pleural effusion. The heart and pulmonary vascularity are normal for technique. IMPRESSION: Negative portable chest ACT 112: Negative or not required by law. Electronically signed by: Kasey Delong M.D. 03/01/2025 2:51 PM
--- NOTE | 2025-03-01 14:56 | Electrocardiogram Report ---
Test Reason : Blood Pressure : */* mmHG Vent. Rate : 90 BPM Atrial Rate : 90 BPM P-R Int : 164 ms QRS Dur : 86 ms QT Int : 366 ms P-R-T Axes : 20 47 41 degrees QTcB Int : 447 ms Poor data quality, interpretation may be adversely affected Normal sinus rhythm Normal ECG No previous ECGs available Confirmed by Larry Alonso ([id number]) on 03/01/2025 2:56:10 PM Referred By: Confirmed By: Larry Alonso
--- NOTE | 2025-03-01 15:10 | CT Scan Report ---
CT SCAN OF THE BRAIN WITHOUT IV CONTRAST CLINICAL HISTORY: Headache COMPARISON STUDY: Facial bone CT dated 05/23/2012 TECHNIQUE: Unenhanced axial CT scan of the brain is performed from the vertex to the skull base. Imag es are reviewed in the axial, sagittal, and coronal planes. A dose lowering technique was utilized a dhering to the principles of ALARA. CT DOSE: 547.75 mGy.cm FINDINGS: Brain parenchyma: The brain parenchyma is normal in appearance. There is no hemorrhage, mass effect, or evidence of acute territorial ischemia by CT criteria. Fu-white matter differentiation is preser robert. No extra-axial fluid collection is seen. There is cerebellar tonsillar ectopia consistent with a Chiari I malformation. Ventricles, sulci, cisterns: Normal in configuration. Intracranial vasculature: The visualized intracranial vasculature at the skull base is normal in appe arance. Calvarium: Unremarkable. Sinuses and mastoids: The visualized paranasal sinuses are clear. The mastoid air cells are well pneu matized. Orbits: The bony orbits are grossly intact. IMPRESSION: 1. No acute intracranial abnormality. 2. 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 ACT 112: Negative or not required by law. Electronically signed by: Nick Hdez M.D. 03/01/2025 3:08 PM
--- NOTE | 2025-03-01 15:18 | CT Scan Report ---
ABDOMEN AND PELVIS CT WITH IV CONTRAST CT DOSE: 1348.18 mGy.cm HISTORY: blood in urine, white count TECHNIQUE: Multiaxial CT images of the abdomen and pelvis were performed following the IV administrat ion of 90 cc of Optiray, A dose lowering technique was utilized adhering to the principles of ALARA. COMPARISON STUDY: 12/26/2024 FINDINGS: Since the prior examination, there are ventral hernias have been repaired and there is a ve ntral scar from the prior surgery. Several small bowel loops appear to be tethered to the surgical si te along the peritoneal surface anteriorly. There is no evidence of obstruction. There is no free air in the abdomen. The liver remains enlarged. The gallbladder is moderately distended. There are no gallstones identifi ed. The pancreas and adrenal glands and spleen are unremarkable. The kidneys demonstrate bilateral nonobstructive stones as before. There is no bowel obstruction or free air as previously stated. There is no aortic aneurysm or periao rtic adenopathy. In the pelvis, the appendix is not identified. The urinary bladder is empty and cannot be evaluated. The uterus is absent. IMPRESSION: Hepatomegaly with no focal liver lesions identified. The liver has increased in size from 19 to 22 cm since the prior examination. Moderate gallbladder distention with no secondary signs of inflammation. Postsurgical repair of ventral hernias with probable adhesions tethering the small bowel loops agains t the anterior peritoneal surface. No obstruction or free air. Bilateral, nonobstructive2 nephrolithiasis redemonstrated. ACT 112: Negative or not required by law. The above report was generated using voice recognition software. It may contain grammatical, syntax o r spelling errors. Electronically signed by: Kasey Delong M.D. 03/01/2025 3:16 PM
--- NOTE | 2025-03-01 15:46 | Ultrasound Report ---
US venous doppler LE RT HISTORY: leg pain, swelling COMPARISON: None TECHNIQUE: Multiple real-time sonographic images of the right lower extremity deep venous structures were obtained assessing grayscale appearance, color and spectral flow. FINDINGS: No evidence of DVT seen at the right lower extremity. Small normal-appearing lymph node nate suring 1.4 cm is incidentally seen in the right popliteal fossa. IMPRESSION: No evidence of DVT seen. ACT 112: Negative or not required by law. The above report was generated using voice recognition software. It may contain grammatical, syntax o r spelling errors. Electronically signed by: Cheng Briseno M.D. 03/01/2025 3:45 PM
[2025-03-01 16:15] LABS: Appearance Urine Turbid (Clear); Bacteria Urine Automated 2+ (None Seen); Cast Urine Automated >20 /lpf (0-2); Glucose Urine UA Negative (Negative); RBC Urine Automated >20 /hpf (0-2)
--- NOTE | 2025-03-01 16:20 | History & Physical Report ---
Date of Service March 01, 2025 Assessment & Plan (1) Sepsis: (2) Headache: (3) Persistent fever: (4) Neck pain: (5) Acute pain of right lower extremity: (6) Abnormal urinalysis: (7) LORENA (acute kidney injury): Plan Patient is a 39-year-old female with past medical history significant for anxiety/depression, hypocalcemia, obesity of semaglutide for weight management, history of uterine rupture, history of acute blood loss anemia, history of incarcerated supraumbilical hernia s/p open repair in December 2024 and other problems listed below who presented to the ED with multiple complaints including RLE pain, ambulatory dysfunction secondary to RLE pain, persistent fevers and persistent headaches. Patient was seen at [facility] in [place] yesterday for the above complaints. -CXR negative. Influenza A/B, Lyme disease screen negative. Anaplasma/Babesia PCR panel negative. UA with >200 bacteria, + blood, >300 protein and 6-9 WBC. Urine culture pending. R knee XR negative. She has not been placed on any antibiotics. #Sepsis --> meets criteria upon presentation given tachycardia/WBC>12k/suspected infection Dealing w/ multiple potential sources; considering multiple sources as outlined below WBC 20.5k w/ neutrophilic predominance Lactate negative Check procalcitonin CXR unremarkable Resp BioFire negative Additional tickborne testing pending --> however was negative yesterday as per above CTAP: hepatomegaly, moderate gallbladder distention w/ secondary sign of inflammation, b/l nonobstructing kidney stones -LFTs unremarkable (hepatomegaly) --> continue to monitor; poss fatty liver dz given body habitus BP initially 89/52 -Fluid responsive s/p 2L NSS w/ BP improvement to 106/62 at time of our eval -Continue IVF w/ NSS @ 125cc/hr for now --> monitor BP trend overnight, reassess volume status in AM -Empiric ABX initiated as outlined below Blood cx pending --> follow Check nasal MRSA #Persistent fevers/AGUILLON #Neck pain --> more localized to L side, increased w/ turning of head Cervical spine XR: grossly unremarkable, C5-C6 degenerative changes Head CT: no acute intracranial abnormality, evidence of a Chiari I malformation Persistent fevers/AGUILLON/neck pain x 4 days w/ Tmax of 104.6F -No nuchal rigidity appreciated on exam At this time, suspicion for meningitis is somewhat low given benign exam --> however, sx certainly raise concern josé manuel. given persistent fevers/AGUILLON D/w ED provider regarding LP -LP unable to be performed by ED provider 2/2 pt's body habitus -IR lumbar puncture ordered --> will need to be done 2morrow given IR availability -LP order set/cultures ordered --> follow closely Will cover empirically w/ IV Rocephin+dapto for now given current low suspicion --> reassess pt's clinical status in AM, get LP completed KAILEY #RLE pain w/ ambulatory dysfx #RLE erythema --> present from posterior calf region to popliteal fossa, warm to palpation/TTP (nursing staff in ED to outline w/ surgical marker) C/f possible cellulitis formation RLE venous Doppler US: no evidence of DVT, small normal-appearing lymph node measuring 1.4 cm is incidentally seen in the right popliteal fossa IV Rocephin on board as per above PT/OT evals -If no improvement in pain, could consider RLE CT vs MRI for further eval Check CK level #Abnormal UA UA: turbid, 2+ protein, 3+ blood, 1+ LE, 6-10 WBC, 2+ bacteria -C/x infection however pt lacks any urinary complaints such as dysuria/increased urinary frequency/etc IV Rocephin on board as per above Urine cx pending --> follow #LORENA Cr 1.82 Suspect 2/2 poor po intake IVF onboard as per above -Reassess renal fx in AM --> if no improvement, may need to consider nephro consult -Avoid nephrotoxic agents as able #Anxiety/depression Continue Lexapro #GERD Continue Pepcid #Obesity On semaglutide for weight control --> hold while inpt Check AM Hgb A1c #Hyponatremia Suspect 2/2 poor po intake --> reassess in AM -If no improvement, can check serum osm/urine osm/urine Na for further eval #Hypokalemia K+ 3.4 Check mag 20mEq po KCl ordered --> reassess K+ in AM and replete PRN DVT Prophylaxis: SCDs/TEDs for now --> consider chemical AC in AM s/p LP Code Status: FULL CODE Disposition: Admit to PCU Patient seen in collaboration with Dr. Gant. Please see addendum. I spent a total of 80 minutes coordinating, documenting, and providing care for this patient excluding time spent in the performance of separately billed services or time spent by another provider/QHP. This included personally reviewing all current laboratories and imaging studies, medical reconciliation, outpatient chart review and discussion with specialists. This chart was completed in part utilizing Speech Voice Recognition Software. Grammatical errors, random word insertions, pronoun errors, and incomplete sentences are an occasional consequence of this system due to software limitations, ambient noise, and hardware issues. Any formal questions or concerns about the content, text, or information contained within the body of this dictation should be directly addressed to the provider for clarification. History of Present Illness Chief Complaint: R calf pain, AGUILLON and fevers Primary Care Provider: SANDRA Chávez Patient is a 39-year-old female with past medical history significant for anxiety/depression, hypocalcemia, obesity of semaglutide for weight management, history of uterine rupture, history of acute blood loss anemia, history of incarcerated supraumbilical hernia s/p open repair in December 2024 and other problems listed below who presented to the ED with multiple complaints including RLE pain, ambulatory dysfunction secondary to RLE pain, persistent fevers and persistent headaches. History obtained from the patient, discussion with the ED provider and associated chart review. Patient was playing on a swing set with her son this past Wednesday evening when she started to experience pain in her RLE. Initially thought she had pulled or strained muscle however then she started to develop erythema along her right posterior calf region which now has radiated up to the right popliteal fossa. This area of erythema is also warm to palpation. Ambulation has become difficult with this RLE pain; however, no reported falls or additional mechanisms of injury. She started with persistent fevers Wednesday morning with Tmax of 104.6 F, which was recorded yesterday afternoon. Patient states the fevers would initially resolve with "[id number]" Tylenol and Motrin; however, upon the medication "wearing off," the fevers would return. She has been experiencing persistent global headaches since Wednesday morning as well which are only partially relieved with the Tylenol and Motrin. No reported visual disturbances; although, patient experienced 3 separate bouts of vomiting yesterday afternoon. Poor appetite reported with decline in oral fluid intake - especially since experiencing bouts of nausea since yesterday afternoon. She also has been experiencing neck pain but states it is more localized to the left side of her neck. No reported difficulties with bending her neck; however, she does have increased pain with turning her neck side to side. She had 1 bout of diarrhea last evening but nothing further; no BRBPR or melena. Denies any dysuria, hematuria, abdominal pain, SOB or chest pain. Patient was seen at [facility] in [place] yesterday for the above complaints. CXR negative. Influenza A/B, Lyme disease screen negative. Anaplasma/Babesia PCR panel negative. UA with >200 bacteria, + blood, >300 protein and 6-9 WBC. Urine culture pending. R knee XR negative. She has not been placed on any antibiotics. Allergies Allergy/AdvReac Type Severity Reaction Status Date / Time No Known Allergies Allergy Unverified 01/10/25 09:03 Home Medications Medication Instructions Recorded Confirmed Type acetaminophen 325 mg tablet 325 mg PO DIRECTED PRN Pain 12/26/24 03/01/25 History (Tylenol) albuterol sulfate 90 mcg/actuation 1 puff inhalation DIRECTED PRN 12/26/24 03/01/25 History aerosol inhaler sob ashwagandha extract 1 tab PO DAILY 12/26/24 03/01/25 History buspirone 10 mg tablet 10 mg PO TID PRN Anxiety 12/26/24 03/01/25 History famotidine 20 mg tablet 20 mg PO BID 12/26/24 03/01/25 History ibuprofen 200 mg tablet 200 mg PO DIRECTED PRN Pain 12/26/24 03/01/25 History escitalopram oxalate 10 mg tablet 20 mg PO DAILY 01/10/25 03/01/25 History ondansetron HCl 4 mg tablet 4 mg PO DIRECTED PRN n/v 03/01/25 03/01/25 History semaglutide 1 mg/dose (4 mg/3 mL) 1 mg subcut WK 03/01/25 03/01/25 History subcutaneous pen injector Past Med/Surg History Problem List Acute pain of right lower extremity Neck pain LORENA (acute kidney injury) Abnormal urinalysis Sepsis Persistent fever Headache H/O ventral hernia repair (12/26/24) Laparoscopic convert to open Ventral Hernia (recurrent) Repair x2 with mesh(Not Applicable) - Jan Martinez DO Incarcerated hernia (Acute) SBO (small bowel obstruction) (Acute) Incarcerated ventral hernia Abnormal test (Acute 03/23/14) Fracture of distal fibula (Acute) Medical History Vomiting Recurrent ventral hernia Social History Smoking Status: Former smoker Hx Alcohol Use: No Hx Substance Use: No Preferred Language: Hebrew Communication Ability: Effective Panelboard Operator Required: No Beliefs That Will Affect Care: None Feels Safe at Home: Yes Assistive Devices: None Review of Systems Review of Systems: At least ten systems reviewed and negative, except as noted in the HPI. Physical Exam Physical Exam: Please refer to Dr. Gant's addendum for physical examination findings. Results & Data Results & Data Vital Signs (Past 12 Hours) Vital Signs Temp Pulse Pulse Resp BP BP Pulse Ox 03/01/25 15:06 86 20 91/54 L 96 03/01/25 13:59 95 H 03/01/25 13:39 96 H 20 95/66 L 96 03/01/25 13:10 36.4 C L 102 H 16 106/69 98 O2 Del Method 03/01/25 15:06 03/01/25 13:59 03/01/25 13:39 Room Air 03/01/25 13:10 Room Air Laboratory Results Short CBC 03/01/25 Range/Units 13:40 WBC 20.55 H (4.8-10.8) K/ul Hgb 11.6 L (12.0-16.0) g/dl Hct 35.1 L (37.0-47.0) % Plt Count 265 (130-400) K/uL BMP 03/01/25 13:40 Sodium 132 L Potassium 3.4 L Chloride 97 L Carbon Dioxide 23 BUN 34 H Creatinine 1.82 H Glucose 110 H Calcium 9.4 Liver Function 03/01/25 Range/Units 13:40 Total Bilirubin 0.9 (0.2-1.0) mg/dl AST 12 L (13-39) U/L ALT 17 (7-52) U/L Alkaline Phosphatase 72 (34-104) U/L Albumin 3.8 (3.4-5.0) gm/dl Urine 03/01/25 Range/Units 15:47 Urine Color Dark Yellow Urine Appearance Turbid A (Clear) Urine pH 5.0 (4.5-7.5) Ur Specific Benton 1.033 H (1.000-1.030) Urine Protein 2+ H (Negative) Urine Glucose (UA) Negative (Negative) Diagnostic Findings Cervical Spine X-Ray 03/01/25 13:37 XR cervical spine 2 or 3V CLINICAL HISTORY: neck pain, stiffness COMPARISON STUDY: None FINDINGS: There are mild degenerative findings at C5-6. No fracture or subluxation. Prevertebral soft tissues have normal thickness. IMPRESSION: C5-6 degenerative changes. ACT 112: Negative or not required by law. Electronically signed by: Cheng Briseno M.D. 03/01/2025 2:[address] 03/01/25 13:37 CT SCAN OF THE BRAIN WITHOUT IV CONTRAST CLINICAL HISTORY: Headache COMPARISON STUDY: Facial bone CT dated 05/23/2012 TECHNIQUE: Unenhanced axial CT scan of the brain is performed from the vertex to the skull base. Images are reviewed in the axial, sagittal, and coronal planes. A dose lowering technique was utilized adhering to the principles of ALARA. CT DOSE: 547.75 mGy.cm FINDINGS: Brain parenchyma: The brain parenchyma is normal in appearance. There is no hemorrhage, mass effect, or evidence of acute territorial ischemia by CT criteria. Fu-white matter differentiation is preserved. No extra-axial fluid collection is seen. There is cerebellar tonsillar ectopia consistent with a Chiari I malformation. Ventricles, sulci, cisterns: Normal in configuration. Intracranial vasculature: The visualized intracranial vasculature at the skull base is normal in appearance. Calvarium: Unremarkable. Sinuses and mastoids: The visualized paranasal sinuses are clear. The mastoid air cells are well pneumatized. Orbits: The bony orbits are grossly intact. IMPRESSION: 1. No acute intracranial abnormality. 2. 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 ACT 112: Negative or not required by law. Electronically signed by: Nick Hdez M.D. 03/01/2025 3:08 PM Venous Doppler Study 03/01/25 13:37 US venous doppler LE RT HISTORY: leg pain, swelling COMPARISON: None TECHNIQUE: Multiple real-time sonographic images of the right lower extremity deep venous structures were obtained assessing grayscale appearance, color and spectral flow. FINDINGS: No evidence of DVT seen at the right lower extremity. Small normal- appearing lymph node measuring 1.4 cm is incidentally seen in the right popliteal fossa. IMPRESSION: No evidence of DVT seen. ACT 112: Negative or not required by law. The above report was generated using voice recognition software. It may contain grammatical, syntax or spelling errors. Electronically signed by: Cheng Briseno M.D. 03/01/2025 3:45 PM Abdomen/Pelvis CT 03/01/25 13:[address] WITH IV CONTRAST CT DOSE: 1348.18 mGy.cm HISTORY: blood in urine, white count TECHNIQUE: Multiaxial CT images of the abdomen and pelvis were performed following the IV administration of 90 cc of Optiray, A dose lowering technique was utilized adhering to the principles of ALARA. COMPARISON STUDY: 12/26/2024 FINDINGS: Since the prior examination, there are ventral hernias have been repaired and there is a ventral scar from the prior surgery. Several small bowel loops appear to be tethered to the surgical site along the peritoneal surface anteriorly. There is no evidence of obstruction. There is no free air in the abdomen. The liver remains enlarged. The gallbladder is moderately distended. There are no gallstones identified. The pancreas and adrenal glands and spleen are unremarkable. The kidneys demonstrate bilateral nonobstructive stones as before. There is no bowel obstruction or free air as previously stated. There is no aortic aneurysm or periaortic adenopathy. In the pelvis, the appendix is not identified. The urinary bladder is empty and cannot be evaluated. The uterus is absent. IMPRESSION: Hepatomegaly with no focal liver lesions identified. The liver has increased in size from 19 to 22 cm since the prior examination. Moderate gallbladder distention with no secondary signs of inflammation. Postsurgical repair of ventral hernias with probable adhesions tethering the small bowel loops against the anterior peritoneal surface. No obstruction or free air. Bilateral, nonobstructive2 nephrolithiasis redemonstrated. ACT 112: Negative or not required by law. The above report was generated using voice recognition software. It may contain grammatical, syntax or spelling errors. Electronically signed by: Kasey Delong M.D. 03/01/2025 3:16 PM Chest X-Ray 03/01/25 14:40 XR chest 1V portable CLINICAL HISTORY: FEVER COMPARISON STUDY: None FINDINGS: Single view portable chest demonstrates no acute cardiopulmonary process. Is no airspace opacity or pleural effusion. The heart and pulmonary vascularity are normal for technique. IMPRESSION: Negative portable chest ACT 112: Negative or not required by law. Electronically signed by: Kasey Delong M.D. 03/01/2025 2:51 PM Medications Administered Discontinued Medications Sodium Chloride (Nss) 1,000 mls @ 999 mls/hr IV .Q1H1M PAWAN Stop: 03/01/25 16:15 Last Admin: 03/01/25 15:54 Dose: 999 mls/hr Documented By: Infusion: 03/01/25 15:16 Dose: Infused Documented By: Admin: 03/01/25 14:15 Dose: 999 mls/hr Documented By: QGV Acetaminophen (Ofirmev) 1,000 mg in 100 mls @ 400 mls/hr IV NOW STA Stop: 03/01/25 14:15 Last Infusion: 03/01/25 14:40 Dose: Infused Documented By: Admin: 03/01/25 14:15 Dose: 400 mls/hr Documented By: QGV Ioversol (Optiray 320 100ml) 90 ml IV ONCE ONE Stop: 03/01/25 14:48 Last Admin: 03/01/25 14:48 Dose: 90 ml Documented By: MARINA Ondansetron HCl (Ondansetron Inj 2 Mg/Ml 2 Ml Vial) 4 mg IV NOW STA Stop: 03/01/25 14:02 Last Admin: 03/01/25 14:15 Dose: 4 mg Documented By: QGV Code Status & VTE Plan Code Status FULL CODE Supervising Physician Co-Signing Physician Notes Patient is a 39-year-old female with history of mood disorder, obesity, history of uterine rupture, ventral hernia and other medical problems presents with history of worsening right leg pain associated with ambulatory dysfunction. She also states having persistent fevers, headache, left neck discomfort with movement. Patient denies any fall, trauma. Patient was playing with the swing set with her son on Wednesday after which patient experienced significant right lower extremity pain which gradually worsened. She denies any change in mental status, chest pain, dyspnea, abdominal pain, dysuria, hematuria. She did have an episode of diarrhea yesterday and also states having nausea. She admits to be taking Tylenol and ibuprofen for headaches. Please review HPI for complete details of presentation. ED physician attempted lumbar puncture which was unsuccessful. I personally reviewed blood work and imaging studies. White blood cell count elevated 20.5 K, hemoglobin 11.6, hematocrit 35.1, sodium 132, potassium 3.4, chloride 97, anion gap 12, BUN 34, creatinine 1.8, lactic acid 1.2, procalcitonin pending. Urinalysis suggestive of possible UTI. BioFire negative. Nasal MRSA pending. Doppler study showed no DVT. CT head showed evidence of Chiari I malformation but otherwise no acute process. Neck x-ray showed C5-C6 degenerative changes. CT abdomen suggestive of hepatomegaly, moderately distended gallbladder, bilateral nonobstructive nephrolithiasis, postsurgical repair of ventral hernia with probable ideations, with no obstruction or free air. Physical Exam: Vitals signs as noted above General Appearance: Moderate obesity, no apparent distress Head: normocephalic, Atraumatic Neck: No neck rigidity, mild tenderness left cervical region Eyes: normal inspection, EOMI Neck: supple, Trachea midline Respiratory/Chest: Normal breath sounds, CTA, No accessory muscle use Cardiovascular: S1, S2, No murmur Abdomen/GI:Soft, Non tender, Bowel sounds present Extremities/Musculoskeletal:normal inspection, right calf mild erythema, tender, swelling Neurologic/Psych:AAOX3, grossly no focal neurological deficits Skin: normal color, warm Sepsis Suspected meningitis Possible right leg cellulitis, urinary tract infection No other obvious source of infection noted. Blood pressure improved with IV fluids while in ED. Unsuccessful lumbar puncture Will empirically start on broad-spectrum IV antibiotics Check nasal MRSA screen Blood, urine cultures pending Check CK levels Continue IV fluids Will consider leg MRI if no improvement We will attempt another lumbar puncture tomorrow with IR Acute kidney injury Proteinuria Admits to NSAIDs use for headache Avoid NSAIDs, nephrotoxic agents Continue IV fluids Monitor for any retention Nephrology consulted Monitor I's and O's, urinary output Morbid obesity BMI 39 Hepatomegaly likely due to hepatic steatosis Nonobstructive bilateral nephrolithiasis Moderate gallbladder distention Denies any abdominal pain Normal LFTs Monitor I personally interviewed and examined the patient at bedside. I have reviewed the advanced practitioner's documentation on the date of service referred in note and agree with plan. Patient's care is coordinated with Donna Medrano PA-C. Please refer to the documentation above for details of patient's presentation and for discussion of other issues. I spent a total [id number] coordinating, documenting, and providing care for this patient excluding time spent in the performance of separately billed services or time spent by another provider/QHP. (1) Sepsis Sepsis acute organ dysfunction status: unspecified Sepsis type: sepsis due to unspecified organism Qualified Code(s): A41.9 - Sepsis, unspecified organism (2) Headache Headache chronicity pattern: unspecified pattern Headache type: unspecified Intractability: intractable Qualified Code(s): R51.9 - Headache, unspecified
--- NOTE | 2025-03-01 17:45 | Emergency Department Note ---
ED Visit Note Lumbar puncture: This procedure was performed by me. Risks and benefits of the procedure were discussed. Patient was placed seated on the stretcher. Lumbar landmarks were identified. Betadine was used for prep. Sterile drapes were applied. Using sterile technique, lidocaine was used to anesthetize the lumbar area. Using sterile technique, I did attempt to access the spinal canal with a 20-gauge spinal needle, however, I was unable to obtain fluid. Despite readjustments, fluid cannot be obtained. The procedure was halted. The patient tolerated the procedure well. .
[2025-03-01] MEDS: DAPTOmycin 500 MG in SYRINGE 0 ML IV ONE (17:52)
[2025-03-01] MEDS: PIPERACILLIN/TAZOBACTAM 4.5 GM/100 ML BAG IV ONE (17:55)
[2025-03-01] MEDS: LIDOCAINE 1% LOCAL 20 ML VIAL INFIL ONE (17:55)
[2025-03-01] MEDS: cefTRIAXone SODIUM 2,000 MG/50 ML BAG IV STA (17:59)
[2025-03-01] MEDS: SODIUM CHLORIDE 0.9% 1,000 ML IV ONE (18:00)
[2025-03-01 18:43] LABS: Creatine Kinase 34.0 U/L (26-192); Magnesium 1.8 mg/dl (1.7-2.4)
[2025-03-01] MEDS ORDERED: MAGNESIUM HYDROXIDE SUSP 30 ML UDC PO PRN (18:48)
[2025-03-01] MEDS: ACETAMINOPHEN 325 MG TAB PO PRN (19:32)
[2025-03-01] MEDS: POTASSIUM CHLORIDE CRTAB 20 MEQ TABCR PO STA (19:32)
[2025-03-01] MEDS: busPIRone 5 MG TAB PO PRN (19:34)
[2025-03-01] MEDS: HYDROmorphone INJ 0.5 MG/0.5 ML SYR IV STA (19:49)
[2025-03-01] MEDS: ONDANSETRON INJ 2 MG/ML 2 ML VIAL IV PRN (19:50)
[2025-03-01] MEDS: FAMOTIDINE 20 MG TAB PO SCH (21:52)
[2025-03-01 22:42] LABS: Procalcitonin 4.94 ng/ml (0-0.5)
[2025-03-01 23:06] LABS: Lyme Screen Rflx Confirmation Negative (Negative)
[2025-03-02] MEDS: HYDROmorphone INJ 0.5 MG/0.5 ML SYR IV PRN ×2 (00:06→19:43)
[2025-03-02] MEDS: GADOBUTROL 65ML VIAL IV ONE (02:33)
--- NOTE | 2025-03-02 03:58 | Magnetic Resonance Report ---
EXAM: MR lumbar spine wo/w con CLINICAL HISTORY: Severe right leg pain TECHNIQUE: MRI of the lumbar spine was performed without and with the of 11ml Gadavist administration of intravenous contrast, acquiring multiple sequences COMPARISON: No previous studies are available for comparison. FINDINGS: Vertebral Alignment: Normal alignment of the lumbar spine without evidence of fracture or malalignment. No evidence of scoliosis is observed. Marrow signals are normal. Vertebral Bodies and Intervertebral Discs: Normal vertebral body height, no fracture identified. No lytic or sclerotic lesions. Normal bone marrow signal intensity. Diffuse spondylosis of the lumbar spine denoted by minute marginal osteophytes, Modic changes type II of the opposing vertebral end plates of L1-2, tiny schmorl`s node along lower vertebral end plate of L4. Hypertrophy of the facet joints noted. Degenerated L1-2, L3-4, and L4-5 discs showing decreased T2 signal and height. Defbc-aj-[id number] analysis: T12-L1: There is no significant disc pathology. No spinal canal stenosis. No neural foraminal stenosis. No ligamentum flavum hypertrophy and facet joint arthropathy. L1-L2: There is 2.5 mm central focal protrusion of the disc, effacing the anterior epidural fat, indenting the dural sac. No nerve root compression. No spinal canal stenosis. No neural foraminal stenosis. L2-L3: There is no significant disc pathology. No spinal canal stenosis. No neural foraminal stenosis. No ligamentum flavum hypertrophy and facet joint arthropathy. L3-L4: There is 3.5 mm asymmetrical diffuse bulging of the disc, inclined more to the left side, effacing the anterior epidural fat, compressing the dural sac and both L4 nerve roots. The disc abutting both L3 nerve roots in the both neural foramina. There is mild spinal canal and neural foraminal stenosis. L4-L5: There is 3.5 mm central focal protrusion of the disc with annulus fibrosis tear, effacing the anterior epidural fat, compressing the dural sac and both L5 nerve roots. Mild spinal canal stenosis noted. No neural foraminal stenosis. L5-S1: There is 5.5 mm left foraminal-far lateral focal protrusion of the disc, compressing the left L5 nerve root in the neural foramen. There is moderate stenosis of the left neural foramen. No spinal canal stenosis. No right neural foraminal stenosis. Spinal Cord and Nerve Roots: Conus medullaris terminates at the L1 level without abnormality. The lower thoracic spinal cord, conus medullaris, and cauda equina nerve roots are unremarkable. Soft Tissues: Paraspinal soft tissues appear normal without evidence of abnormal signal intensity or mass lesions. Minimal soft tissue edematous changes along subcutaneous tissue of the lower back. No abnormal post-contrast enhancement. IMPRESSION: 1. Mild spondylosis of the lumbar spine with multilevel disc pathologies with no significant spinal canal stenosis as detailed above. 2. L1-L2: 2.5 mm central focal protrusion of the disc. 3. L3-L4: 3.5 mm asymmetrical diffuse bulging of the disc, inclined more to the left side, compressing both L4 nerve roots, abutting both L3 nerve root in both neural foramina. Mild spinal canal and neural foraminal stenosis. 4. L4-L5: 3.5 mm central focal protrusion of the disc with annulus fibrosis tear, compressing the dural sac and both L5 nerve roots. Mild spinal canal stenosis. 5. L5-S1: 5.5 mm left foraminal-far lateral focal protrusion of the disc, compressing the left L5 nerve root in the neural foramen. Moderate stenosis of the left neural foramen. Electronically signed by Jason Buchanan 03-02-2025 03:58 AM
--- NOTE | 2025-03-02 04:13 | Magnetic Resonance Report ---
EXAM: MR femur RT wo/w con CLINICAL HISTORY: Severe right leg pain TECHNIQUE: Multiplanar, multiecho MRI of the right femur was performed without and with 11ml Gadavist the administration of intravenous contrast. Images were sent through PACs for diagnostic interpretation. COMPARISON: None. FINDINGS: Bones: Normal alignment of the femur. No fractures or dislocations. No lytic or sclerotic lesions. No bone marrow edema or contusions. Normal enhancement post-contrast. Muscles: The hamstring muscle group appears swollen with an intermuscular fluid collection extending between: Anteriorly: the short head of the biceps femoris and adductor muscles. Posteriorly: the long head of the biceps femoris, semitendinosus, and semimembranosus muscles. This collection shows fluid signal intensity on T2-weighted images and demonstrates smooth marginal post-contrast enhancement. Maximum thickness measures approximately 21 mm. Muscle Signal Abnormality: Abnormal high T2 signal intensity is noted within the distal adductor muscles, indicating muscle strain or injury. No muscle tear seen. No intramuscular fluid collections identified. Marked subcutaneous edema is seen along the lateral aspect of the lower thigh. Small cysts are noted just posterior to the distal femoral metaphysis, likely reactive. Tendons and Ligaments: The examined conjoined tendon appears intact. Intact and normal appearance of the major tendons and ligaments in thigh. No evidence of tendinopathy, tendon tears, or ligamentous injury. Normal enhancement post-contrast. Neurovascular Structures: Normal appearance of the visualized neurovascular structures. No evidence of compression or abnormal signal changes. Mild knee osteoarthritic changes noted. Few reactive inguinal lymph nodes seen. IMPRESSION: 1. Intermuscular fluid collection tracking between the hamstring muscle groups with edema of the hamstring muscles and intermuscular hematoma, suggestive of grade 2 strain. 2. High T2 signal intensity within the distal adductor muscles; consistent with grade 1 muscular strain. 3. Marked subcutaneous edema over the lateral lower thigh, post-traumatic. 4. No evidence of bone marrow contusion, fracture, or neoplastic lesions. Electronically signed by Jason Buchanan 03-02-2025 04:12 AM
--- NOTE | 2025-03-02 04:20 | Magnetic Resonance Report ---
EXAM: MR lower leg RT wo/w con CLINICAL HISTORY: Severe right leg pain. TECHNIQUE: Multiplanar, multiecho MRI of the right tibia and fibula was performed without and with the administration of 11cc gadavist intravenous contrast. Images were sent through PACs for diagnostic interpretation. COMPARISON: None. FINDINGS: Bones: Normal alignment of the tibia and fibula. No fractures or dislocations. No lytic or sclerotic lesions. No bone marrow edema or contusions. Normal enhancement post-contrast. Joints: Knee osteoarthritic changes with narrowed knee compartments and peripheral osteophytic lipppings. Articular surfaces are smooth without erosions. Normal enhancement post-contrast. Muscles: There is mild edema of the lateral head of the gastrocnemius muscle. There is prominent edema of the medial head of the gastrocnemius muscle. There is focal collection at the distal gastrocnemius mascle with irregularity and distruption of the muscle fascia on the distal segment. These findings are suggestive of grade 2 strain. Tendons and Ligaments: Intact and normal appearance of the major tendons and ligaments around the tibia and fibula. No evidence of tendinopathy, tendon tears, or ligamentous injury. Normal enhancement post-contrast. Neurovascular Structures: Normal appearance of the visualized neurovascular structures. No evidence of compression or abnormal signal changes. Soft Tissues: Posterior subcutaneous soft tissue edema is noted. Smooth marginal enhancement of the subfascial collection noted. IMPRESSION: 1. Grade 2 strain of the medial head of the gastrocnemius muscle. 2. Grade 1 strain of the lateral head of the gastrocnemius muscle. 3. Posterior subcutaneous soft tissue edema 4. Knee osteoarthritic changes with joint space narrowing and peripheral osteophytes. Electronically signed by Jason Buchanan 03-02-2025 04:20 AM
[2025-03-02] MEDS: cefTRIAXone SODIUM 2,000 MG/50 ML BAG IV SCH ×2 (04:58→18:11)
[2025-03-02 07:20] LABS: Hematocrit (blood only) 30.8 % (37.0-47.0); Hemoglobin 10.7 g/dl (12.0-16.0); Mean Corpuscular Hemoglobin 31.4 pg (25.0-34.0); Mean Corpuscular Volume 90.3 fL (80.0-100.0); Platelet Count 242 K/uL (130-400); RDW Standard Deviation 43.8 fL (36.4-46.3); Red Blood Count 3.41 M/uL (4.20-5.40); White Blood Count 18.73 K/ul (4.8-10.8)
[2025-03-02 07:31] LABS: Hemoglobin A1C 5.5 % (4.5-5.6)
[2025-03-02] MEDS: ESCITALOPRAM OXALATE 20 MG TAB PO SCH (07:46)
[2025-03-02] MEDS: ACETAMINOPHEN 1,000 MG/100 ML VIAL IV PRN (07:47)
[2025-03-02 07:52] LABS: Alanine Aminotransferase 15.0 U/L (7-52); Albumin Globulin Ratio 1.0 (0.9-2); Alkaline Phosphatase 78.0 U/L (34-104); Anion Gap 9.0 (3-11); Bilirubin,Total 0.7 mg/dl (0.2-1.0); Blood Urea Nitrogen 25.0 mg/dl (6-23); Calcium 8.7 mg/dl (8.6-10.3); Carbon Dioxide 23.0 mmol/L (21-32); Chloride 100.0 mmol/L (98-107); Creatinine Clr Calc Pharmacy 75.5 ml/min; Globulin 3.3 gm/dl (2.5-4.0); Glucose 116.0 mg/dl (70-99(Fasting)); Magnesium 1.7 mg/dl (1.7-2.4); Potassium 3.5 mmol/L (3.5-5.1); Sodium 132.0 mmol/L (136-145); Total Protein 6.5 gm/dl (6.0-8.3)
[2025-03-02 08:06] LABS: Dohle Bodies 1+; Immature Granulocytes # (auto) 0.15 K/uL (0.01-0.20); Immature Granulocytes % (auto) 0.8 %; Toxic Vacuolation 1+
[2025-03-02] MEDS ORDERED: cefTRIAXone SODIUM 2,000 MG/50 ML BAG IV SCH (08:15)
[2025-03-02] MEDS ORDERED: PIPERACILLIN/TAZOBACTAM 4.5 GM/100 ML BAG IV SCH (08:15)
[2025-03-02] MEDS ORDERED: AMPICILLIN 250 MG in SODIUM CHLORIDE 0.9% 50 ML IV SCH (08:15)
[2025-03-02] MEDS: AMPICILLIN 2,000 MG in SODIUM CHLOR 0.9% MINI-B 100 ML IV SCH (11:12)
[2025-03-02 11:14] LABS: CSF Count Tube # 3; CSF Xanthrochromic No xanthochromia; Red Blood Cell CSF Manual 87 (0); White Blood Cell CSF Manual 0 (0-5)
[2025-03-02 11:57] LABS: Cryptococcus neoformans/ga PCR Not Detected (NotDetected); Escherichia coli K1 PCR Not Detected (NotDetected); Haemophilius influenzae PCR Not Detected (NotDetected); Herpes Simplex Virus 1 PCR Not Detected (NotDetected); Herpes Simplex Virus 2 PCR Not Detected (NotDetected); Human Herpes Virus 6 PCR Not Detected (NotDetected); Human Parechovirus PCR Not Detected (NotDetected); Listeria monocytogenes PCR Not Detected (NotDetected); Neisseria meningitidis PCR Not Detected (NotDetected); Streptococcus agalactiae PCR Not Detected (NotDetected); Streptococcus pneumoniae PCR Not Detected (NotDetected)
[2025-03-02] MEDS: dexAMETHasone 15 MG in DEXTROSE 5% 25 ML IV SCH (12:19)
--- NOTE | 2025-03-02 15:09 | Fluoroscopy Report ---
IR lumbar puncture diagnostic CLINICAL HISTORY: AGUILLON/fevers/neck pain, r/o meningitis. PROCEDURE: The risks, benefits, and alternatives to the procedure is discussed with the patient who v oiced understanding. Written informed consent was obtained. The patient was placed prone on the fluor oscopy table. The lower back was prepped and draped in the usual sterile fashion. 1% lidocaine was us ed for local anesthesia. A 22-gauge spinal needle was inserted into the L4-5 interlaminar space, and approximately 8 cc of clear colorless cerebrospinal fluid was removed. The patient tolerated the proc edure well. There were no immediate complications. The patient was then transported to the medical tr eatment unit for further observation. Fluoroscopy time: 5 seconds Fluoroscopy images: 2 Ka,r: 6 mGy IMPRESSION: Fluoroscopic guided lumbar puncture with removal of approximately 8 cc of cerebrospinal f luid. There were no immediate complications. ACT 112: Negative or not required by law. The above report was generated using voice recognition software. It may contain grammatical, syntax o r spelling errors. Electronically signed by: Cheng Briseno M.D. 03/02/2025 3:08 PM
--- NOTE | 2025-03-02 15:38 | Hospitalist Progress Note ---
Date of Service March 02, 2025 Assessment & Plan (1) Sepsis: (2) Headache: (3) Persistent fever: (4) Neck pain: (5) Acute pain of right lower extremity: (6) Abnormal urinalysis: (7) LORENA (acute kidney injury): Plan Patient is a 39-year-old female with past medical history significant for anxiety/depression, hypocalcemia, obesity of semaglutide for weight management, history of uterine rupture, history of acute blood loss anemia, history of incarcerated supraumbilical hernia s/p open repair in December 2024 and other problems listed below who presented to the ED with multiple complaints including RLE pain, ambulatory dysfunction secondary to RLE pain, persistent fevers and persistent headaches. #Severe Sepsis #Complicated Nonpurulent Cellulitis #Complicated UTI -lumbar puncture performed with zero WBC present, protein and glucose not consistent with bacterial meningitis -viral meningitis possible but less likely given 0 WBC -patient has RLE erythema and very dirty urine consistent with 2 possible sources for sepsis -CTAP: hepatomegaly, moderate gallbladder distention w/ secondary sign of inflammation, b/l nonobstructing kidney stones -LFTs unremarkable (hepatomegaly) --> continue to monitor; poss fatty liver dz given body habitus Plan: -was given decadron/ampicillin this morning to cover for meningitis by this provider -continue ceftriaxone/daptomycin, now stop decadron/ampicillin -f/u culture results -abx will cover UTI and cellulitis -continue fluids for now given extent of sepsis -if no improvement tomorrow will consult jie MYERS abx #Right Thigh Sprain #Acute Nociceptive Pain -fairly significant with severe pain Plan: -start oxycodone 7.5mg q3hr prn for severe pain -start dilaudid 0.75mg for breakthrough pain -start lidocaine patches -PT/OT ordered #Headache -improved #LORENA -improving with fluids #Anxiety/depression -Continue Lexapro #GERD -Continue Pepcid #Obesity -On semaglutide for weight control --> hold while inpt #Hyponatremia -stable #Hypokalemia -resolved I spent a total of 60 minutes in direct patient care, including [id number] time with the patient and/or family, reviewing medical records, ordering and reviewing diagnostic tests, and coordinating care with other healthcare pr oviders. This time includes: history taking, physical examination, medical decision making, counseling, ECG interpretation, imaging interpretation, lab interpretation, orders, and education, excluding time spent in the performance of separately billed services. Admission and Anticipated Discharge Date Admission Date: March 01, 2025 Subjective Patient seen and examined at bedside. Patient in quite a bit of pain at this time on right leg. Otherwise feels ok. Has inflammation on RLE that she is concerned about as well. Neck pain much improved. Review of Systems Review of Systems: CONSTITUTIONAL: fever this morning EYES: Patient denies any visual symptoms. EARS, NOSE, AND THROAT: No difficulties with hearing. No symptoms of rhinitis or sore throat. CARDIOVASCULAR: Patient denies chest pains, palpitations, orthopnea and paroxysmal nocturnal dyspnea. RESPIRATORY: No dyspnea on exertion, no wheezing or cough. GI: No nausea, vomiting, diarrhea, constipation, abdominal pain, hematochezia or melena. : No urinary hesitancy or dribbling. No nocturia or urinary frequency. No abnormal urethral discharge. MUSCULOSKELETAL: No myalgias or arthralgias. RLE tenderness, pain, calf erythema NEUROLOGIC: No chronic headaches, no seizures. Patient denies numbness, tingling or weakness. PSYCHIATRIC: Patient denies problems with mood disturbance. No problems with anxiety. ENDOCRINE: No excessive urination or excessive thirst. DERMATOLOGIC: Patient denies any rashes or skin changes. Physical Exam Physical Exam: Gen: A&O 3 NAD HEENT: NCAT, EOMI, not icteric. External ears normal. No rhinorrhea. Moist mucous membranes. Neck: Supple, full range of motion, no observable masses, No meningeal sign. Lungs: No Respiratory distress. CV: RRR, no edema. Abdomen: Soft, nondistended, No rebound tenderness. MSK: No joint swelling, no redness. Skin: RLE erythema, eccymoses around right hamstring correlating with tear, tenderness to palpation. Neuro: Normal Gait, Grossly intact. Psych: Appropriate for situation. Results & Data Results & Data Vital Signs (Past 12 Hours) Vital Signs Temp Pulse Resp BP BP Pulse Ox O2 Del Method 03/02/25 12:26 98/66 L 03/02/25 11:28 36.6 C 80 16 96/62 L 96 Room Air 03/02/25 08:20 37.7 C H 03/02/25 07:08 39.5 C H 112 H 18 110/68 97 Room Air Laboratory Results -personally reviewed, significant leukocytosis downtrending, creatinine downtrending as well Medications Administered Buspirone HCl (Buspirone 5 Mg Tab) 10 mg PO TID PRN PRN Reason: Anxiety Stop: 03/31/25 17:13 Last Admin: 03/02/25 07:46 Dose: 10 mg Documented By: Admin: 03/01/25 19:34 Dose: 10 mg Documented By: ROMAN Escitalopram Oxalate (Escitalopram Oxalate 20 Mg Tab) 20 mg PO DAILY PAWAN Stop: 04/01/25 08:59 Last Admin: 03/02/25 07:46 Dose: 20 mg Documented By: JAQUELINE Famotidine (Famotidine 20 Mg Tab) 20 mg PO BID PAWAN Stop: 03/31/25 20:59 Last Admin: 03/02/25 10:34 Dose: 20 mg Documented By: Admin: 03/01/25 21:52 Dose: 20 mg Documented By: ROMAN Sodium Chloride (Nss) 1,000 mls @ 125 mls/hr IV .Q8H PAWAN Stop: 03/04/25 18:47 Last Admin: 03/02/25 10:34 Dose: 125 mls/hr Documented By: Infusion: 03/02/25 10:34 Dose: Infused Documented By: Admin: 03/02/25 03:44 Dose: 125 mls/hr Documented By: Infusion: 03/02/25 03:42 Dose: Infused Documented By: Admin: 03/01/25 19:42 Dose: 125 mls/hr Documented By: ROMAN Ondansetron HCl (Ondansetron Inj 2 Mg/Ml 2 Ml Vial) 4 mg IV Q6H PRN PRN Reason: Nausea Stop: 03/31/25 18:47 Last Admin: 03/02/25 03:26 Dose: 4 mg Documented By: Admin: 03/01/25 19:50 Dose: 4 mg Documented By: ROMAN (1) Sepsis Sepsis acute organ dysfunction status: unspecified Sepsis type: sepsis due to unspecified organism Qualified Code(s): A41.9 - Sepsis, unspecified organism (2) Headache Headache chronicity pattern: unspecified pattern Headache type: unspecified Intractability: intractable Qualified Code(s): R51.9 - Headache, unspecified
[2025-03-02] MEDS: ACETAMINOPHEN 500 MG TAB PO SCH (16:27)
[2025-03-02] MEDS: LIDOCAINE 5% 1 PATCH TD STA (16:28)
[2025-03-02] MEDS: DAPTOmycin 500 MG in SYRINGE 0 ML IV SCH (17:41)
[2025-03-02] MEDS: REMOVE LIDODERM PATCH SCH (19:45)
[2025-03-03 06:50] LABS: Hematocrit (blood only) 30.6 % (37.0-47.0); Hemoglobin 10.4 g/dl (12.0-16.0); Mean Corpuscular Hemoglobin 30.5 pg (25.0-34.0); Mean Corpuscular Volume 89.7 fL (80.0-100.0); Platelet Count 293 K/uL (130-400); RDW Standard Deviation 45.1 fL (36.4-46.3); Red Blood Count 3.41 M/uL (4.20-5.40); White Blood Count 27.99 K/ul (4.8-10.8)
[2025-03-03 07:13] LABS: Anion Gap 9.0 (3-11); Blood Urea Nitrogen 17.0 mg/dl (6-23); Calcium 9.4 mg/dl (8.6-10.3); Carbon Dioxide 24.0 mmol/L (21-32); Chloride 103.0 mmol/L (98-107); Creatinine Clr Calc Pharmacy 140.9 ml/min; Glucose 144.0 mg/dl (70-99(Fasting)); Potassium 4.0 mmol/L (3.5-5.1); Sodium 136.0 mmol/L (136-145)
[2025-03-03] MEDS: OPTIRAY 320 100ml IV ONE (10:44)
[2025-03-03] MEDS: PIPERACILLIN/TAZOBACTAM 4.5 GM/100 ML BAG IV SCH (11:23)
[2025-03-03] MEDS: HYDROmorphone INJ 0.5 MG/0.5 ML SYR IV PRN (11:24)
--- NOTE | 2025-03-03 11:36 | CT Scan Report ---
Clinical history: Cellulitis Technique: Axial computed tomography images were obtained of the right lower leg after the administration of intravenous contrast. Sagittal and coronal reconstructions were obtained Findings: No acute fracture is identified. There is a well corticated bone fragment adjacent to the tibial tuberosity that may be due to old injury. No subluxation or dislocation is seen. There are small osteophytes in all 3 compartments of the right knee. No focal osseous lesion is evident. There is a small bipartite accessory navicular bone. The visualized musculature appears unremarkable. There is mild diffuse subcutaneous edema. No definite soft tissue mass or focal fluid collection is seen. There is a small knee effusion. No foreign body is evident Impression: 1. Subcutaneous edema that may be due to cellulitis 2. No definite abscess or osteomyelitis 3. Small right knee effusion 4. Mild right knee osteoarthritis 5. Suspected old injury of the tibial tuberosity Electronically signed by Adan Patel 03-03-2025 11:35 AM
--- NOTE | 2025-03-03 14:35 | Hospitalist Progress Note ---
Date of Service March 03, 2025 Assessment & Plan (1) Sepsis: (2) Headache: (3) Persistent fever: (4) Neck pain: (5) Acute pain of right lower extremity: (6) Abnormal urinalysis: (7) LORENA (acute kidney injury): Plan Patient is a 39-year-old female with past medical history significant for anxiety/depression, hypocalcemia, obesity of semaglutide for weight management, history of uterine rupture, history of acute blood loss anemia, history of incarcerated supraumbilical hernia s/p open repair in December 2024 and other problems listed below who presented to the ED with multiple complaints including RLE pain, ambulatory dysfunction secondary to RLE pain, persistent fevers and persistent headaches. #Severe Sepsis, resolving #Complicated Nonpurulent Cellulitis #Asymptomatic Bacteriuria -lumbar puncture performed with zero WBC present, protein and glucose not consistent with bacterial meningitis -viral meningitis possible but less likely given 0 WBC -patient has RLE erythema and very dirty urine consistent with 2 possible sources for sepsis -CTAP: hepatomegaly, moderate gallbladder distention w/ secondary sign of inflammation, b/l nonobstructing kidney stones -LFTs unremarkable (hepatomegaly) --> continue to monitor; poss fatty liver dz given body habitus -repeated CT imaging of leg shows improved mild soft tissue edema in RLE Plan: -continue ceftriaxone, daptomycin -f/u culture results #Right Thigh Sprain #Acute Nociceptive Pain -pain out of proportion to imaging findings -denies neuropathic component to pain Plan: -stop oxycodone, start dilaudid 4mg q3hr prn -increase dilaudid to 1.5 mg for breakthrough pain -continue lidocaine patches -PT/OT ordered -ortho consulted given pain out of proportion to exam and imaging findings #Headache -improved #LORENA -improving with fluids #Anxiety/depression -Continue Lexapro #GERD -Continue Pepcid #Obesity -On semaglutide for weight control --> hold while inpt #Hyponatremia -stable #Hypokalemia -resolved I spent a total of 50 minutes in direct patient care, including [id number] time with the patient and/or family, reviewing medical records, ordering and reviewing diagnostic tests, and coordinating care with other healthcare providers. This time includes: history taking, physical examination, medical decision making, counseling, ECG interpretation, imaging interpretation, lab interpretation, orders, and education, excluding time spent in the performance of separately billed services. Admission and Anticipated Discharge Date Admission Date: March 01, 2025 Subjective Patient seen and examined at bedside. Patient doing ok now after increasing pain therapies. Explained extensive imaging and hemodynamics suggest her cellulitis is improving. Review of Systems Review of Systems: CONSTITUTIONAL: better this morning EYES: Patient denies any visual symptoms. EARS, NOSE, AND THROAT: No difficulties with hearing. No symptoms of rhinitis or sore throat. CARDIOVASCULAR: Patient denies chest pains, palpitations, orthopnea and paroxysmal nocturnal dyspnea. RESPIRATORY: No dyspnea on exertion, no wheezing or cough. GI: No nausea, vomiting, diarrhea, constipation, abdominal pain, hematochezia or melena. : No urinary hesitancy or dribbling. No nocturia or urinary frequency. No abnormal urethral discharge. MUSCULOSKELETAL: No myalgias or arthralgias. RLE tenderness, pain, calf erythema NEUROLOGIC: No chronic headaches, no seizures. Patient denies numbness, tingling or weakness. PSYCHIATRIC: Patient denies problems with mood disturbance. No problems with anxiety. ENDOCRINE: No excessive urination or excessive thirst. DERMATOLOGIC: Patient denies any rashes or skin changes. Physical Exam Physical Exam: Gen: A&O 3 NAD HEENT: NCAT, EOMI, not icteric. External ears normal. No rhinorrhea. Moist mucous membranes. Neck: Supple, full range of motion, no observable masses, No meningeal sign. Lungs: No Respiratory distress. CV: RRR, no edema. Abdomen: Soft, nondistended, No rebound tenderness. MSK: No joint swelling, no redness. Skin: RLE erythema, eccymoses around right hamstring correlating with tear, tenderness to palpation. pain out of proportion to imaging and exam Neuro: Normal Gait, Grossly intact. Psych: Appropriate for situation. Results & Data Results & Data Vital Signs (Past 12 Hours) Vital Signs Temp Pulse Pulse Resp BP BP Pulse Ox 03/03/25 11:08 36.6 C 76 18 127/75 96 03/03/25 08:10 03/03/25 07:29 36.8 C 93 H 18 118/70 96 03/03/25 07:03 77 03/03/25 03:14 36.5 C 69 17 126/62 98 O2 Del Method 03/03/25 11:08 Room Air 03/03/25 08:10 Room Air 03/03/25 07:29 Room Air 03/03/25 07:03 03/03/25 03:14 Room Air Laboratory Results -personally reviewed, uptrending leukocytosis in setting of stress dose steroids yesterday, creatinine much improved with fluids Medications Administered Acetaminophen (Acetaminophen 500 Mg Tab) 1,000 mg PO Q8H PAWAN Stop: 04/01/25 15:29 Last Admin: 03/03/25 08:09 Dose: 1,000 mg Documented By: Admin: 03/03/25 00:37 Dose: 1,000 mg Documented By: Admin: 03/02/25 16:27 Dose: 1,000 mg Documented By: JAQUELINE Buspirone HCl (Buspirone 5 Mg Tab) 10 mg PO TID PRN PRN Reason: Anxiety Stop: 03/31/25 17:13 Last Admin: 03/02/25 07:46 Dose: 10 mg Documented By: Admin: 03/01/25 19:34 Dose: 10 mg Documented By: ROMAN Escitalopram Oxalate (Escitalopram Oxalate 20 Mg Tab) 20 mg PO DAILY PAWAN Stop: 04/01/25 08:59 Last Admin: 03/03/25 08:10 Dose: 20 mg Documented By: Admin: 03/02/25 07:46 Dose: 20 mg Documented By: JAQUELINE Famotidine (Famotidine 20 Mg Tab) 20 mg PO BID PAWAN Stop: 03/31/25 20:59 Last Admin: 03/03/25 08:10 Dose: 20 mg Documented By: Admin: 03/02/25 19:44 Dose: 20 mg Documented By: Admin: 03/02/25 10:34 Dose: 20 mg Documented By: Admin: 03/01/25 21:52 Dose: 20 mg Documented By: ROMAN Hydromorphone HCl (Hydromorphone Inj 0.5 Mg/0.5 Ml Syr) 1.5 mg IV Q3HWA PRN PRN Reason: Breakthrough Pain Stop: 03/16/25 15:24 Last Admin: 03/03/25 11:24 Dose: 1.5 mg Documented By: NEGRA Sodium Chloride (Nss) 1,000 mls @ 125 mls/hr IV .Q8H PAWAN Stop: 03/04/25 18:47 Last Admin: 03/03/25 05:03 Dose: 125 mls/hr Documented By: Infusion: 03/03/25 03:44 Dose: Infused Documented By: Admin: 03/02/25 19:44 Dose: 125 mls/hr Documented By: Infusion: 03/02/25 18:34 Dose: Infused Documented By: Admin: 03/02/25 10:34 Dose: 125 mls/hr Documented By: Infusion: 03/02/25 10:34 Dose: Infused Documented By: Admin: 03/02/25 03:44 Dose: 125 mls/hr Documented By: Infusion: 03/02/25 03:42 Dose: Infused Documented By: Admin: 03/01/25 19:42 Dose: 125 mls/hr Documented By: ROMAN Daptomycin 500 mg/ Syringe 10 mls @ 5 mls/min IV Q24H PAWAN; Protocol Stop: 03/04/25 17:59 Last Admin: 03/02/25 17:41 Dose: 5 mls/min Documented By: JAQUELINE Piperacillin Sod/Tazobactam Sod (Zosyn) 4.5 gm in 100 mls @ 25 mls/hr IV Q8H PAWAN; Protocol Stop: 03/10/25 10:29 Last Admin: 03/03/25 11:23 Dose: 25 mls/hr Documented By: NEGRA Miscellaneous (Remove Lidoderm Patch) 1 each N/A DAILY@2100 PAWAN Stop: 04/01/25 20:59 Last Admin: 03/02/25 19:45 Dose: 1 each Documented By: MAE Ondansetron HCl (Ondansetron Inj 2 Mg/Ml 2 Ml Vial) 4 mg IV Q6H PRN PRN Reason: Nausea Stop: 03/31/25 18:47 Last Admin: 03/02/25 22:51 Dose: 4 mg Documented By: Admin: 03/02/25 03:26 Dose: 4 mg Documented By: Admin: 03/01/25 19:50 Dose: 4 mg Documented By: ROMAN (1) Sepsis Sepsis type: sepsis due to unspecified organism Sepsis acute organ dysfunction status: unspecified Qualified Code(s): A41.9 - Sepsis, unspecified organism (2) Headache Headache type: unspecified Headache chronicity pattern: unspecified pattern Intractability: intractable Qualified Code(s): R51.9 - Headache, unspecified
--- NOTE | 2025-03-03 16:30 | Orthopedic Consultation ---
Date of Consultation March 03, 2025 Assessment & Plan (1) Acute pain of right lower extremity: IMPRESSION: RLE pain secondarily to calf and hamstring strains, and cellulitis, increased pain may be associated with lumbar nerve irritation. No evidence of abscess or compartment syndrome. PLAN: Continue Abx. Pain control: continue with Tylenol, Dilaudid, consider adding in Celebrex 200 mg PO BID x weeks, then once daily, and also adding a muscle relaxant. WBAT with walker. PT/OT RICE Continue care per Hospitalist service. Will continue to follow. Present on Admission?: Yes History of Present Illness Reason for Consultation: RLE pain Requesting Physician: Fior Mcallister MD Attending Physician: Hitesh Healy MD History of Present Illness Patient is a 39-year-old female with history of mood disorder, obesity, history of uterine rupture, ventral hernia and other medical problems presents with history of worsening right leg pain associated with ambulatory dysfunction. Patient was playing with the swing set with her son on Wednesday after which patient experienced significant right lower extremity pain which gradually worsened. She was admitted for persistent fevers, headache, left neck discomfort with movement. Patient denies any fall, trauma. She denies any change in mental status, chest pain, dyspnea, abdominal pain, dysuria, hematuria. She did have an episode of diarrhea and nausea. She admits to be taking Tylenol and ibuprofen for headaches. With worsening RLE pain with imaging of hamstring and calf strains. Allergies Allergy/AdvReac Type Severity Reaction Status Date / Time No Known Allergies Allergy Unverified 01/10/25 09:03 Home Medications Medication Instructions Recorded Confirmed Type acetaminophen 325 mg tablet 325 mg PO DIRECTED PRN Pain 12/26/24 03/01/25 History (Tylenol) albuterol sulfate 90 mcg/actuation 1 puff inhalation DIRECTED PRN 12/26/24 03/01/25 History aerosol inhaler sob ashwagandha extract 1 tab PO DAILY 12/26/24 03/01/25 History buspirone 10 mg tablet 10 mg PO TID PRN Anxiety 12/26/24 03/01/25 History famotidine 20 mg tablet 20 mg PO BID 12/26/24 03/01/25 History ibuprofen 200 mg tablet 200 mg PO DIRECTED PRN Pain 12/26/24 03/01/25 History escitalopram oxalate 10 mg tablet 20 mg PO DAILY 01/10/25 03/01/25 History ondansetron HCl 4 mg tablet 4 mg PO DIRECTED PRN n/v 03/01/25 03/01/25 History semaglutide 1 mg/dose (4 mg/3 mL) 1 mg subcut WK 03/01/25 03/01/25 History subcutaneous pen injector Patient History Medical History Vomiting Recurrent ventral hernia Social History Smoking Status: Former smoker Second Hand Exposure: Yes (sometimes); Do You Dip or Chew Tobacco: No; Hx Alcohol Use: Yes Alcohol type: wine and hard liquor Hx Substance Use: No Preferred Language: Yakut Communication Ability: Effective Hotel Front Desk Agent Required: No Beliefs That Will Affect Care: None Current Living Situation: Family Other Information That Helps Us Care for You: No Feels Safe at Home: Yes Safety Concerns: Feels Safe At This Time Assistive Devices: None Physical Exam Physical Exam: RLE: Sensation to light touch is intact distally. BCR < 2 sec. Motor to gastroc soleus 4/5, Tib ant & EHL 5/5. Able to preform straight leg raise. ++ TTP medial gastroc > lateral gastroc, Hamstring. + Bruising posterolateral thigh, distally. Area of Cellulitis medial calf. Calf and thigh are soft, tender. Pain with passive flexion of the calf. Knee ROM 0-90 deg. - straight leg raise. Results & Data Vital Signs (Past 12 Hours) Vital Signs Temp Pulse Pulse Resp BP BP Pulse Ox 03/03/25 15:50 36.7 C 95 H 18 134/76 100 03/03/25 15:21 77 03/03/25 11:08 36.6 C 76 18 127/75 96 03/03/25 08:10 03/03/25 07:29 36.8 C 93 H 18 118/70 96 03/03/25 07:03 77 O2 Del Method 03/03/25 15:50 Room Air 03/03/25 15:21 03/03/25 11:08 Room Air 03/03/25 08:10 Room Air 03/03/25 07:29 Room Air 03/03/25 07:03 Laboratory Results Laboratory Results WBC 27.99 K/ul (4.8-10.8) H 03/03/25 06:31 RBC 3.41 M/uL (4.20-5.40) L 03/03/25 06:31 Hgb 10.4 g/dl (12.0-16.0) L 03/03/25 06:31 Hct 30.6 % (37.0-47.0) L 03/03/25 06:31 MCV 89.7 fL (80.0-100.0) 03/03/25 06:31 MCH 30.5 pg (25.0-34.0) 03/03/25 06:31 MCHC 34.0 g/dL (32.0-36.0) 03/03/25 06:31 RDW Std Deviation 45.1 fL (36.4-46.3) 03/03/25 06:31 RDW Coeff of Tram 13.6 % (11.5-14.5) 03/03/25 06:31 Plt Count 293 K/uL (130-400) 03/03/25 06:31 MPV 9.8 fL (9.4-12.4) 03/03/25 06:31 Immature Gran % (Auto) 0.8 % 03/02/25 06:58 Neut % (Auto) 89.2 % 03/02/25 06:58 Lymph % (Auto) 2.9 % 03/02/25 06:58 [place] % (Auto) 6.7 % 03/02/25 06:58 Eos % (Auto) 0.2 % 03/02/25 06:58 Baso % (Auto) 0.2 % 03/02/25 06:58 Neut # (Auto) 16.70 K/uL (1.40-6.50) H 03/02/25 06:58 Lymph # (Auto) 0.55 K/uL (1.20-3.40) L 03/02/25 06:58 [place] # (Auto) 1.25 K/uL (0.11-0.59) H 03/02/25 06:58 Eos # (Auto) 0.04 K/uL (0.00-0.50) 03/02/25 06:58 Baso # (Auto) 0.04 K/uL (0.00-0.20) 03/02/25 06:58 Immature Gran # (Auto) 0.15 K/uL (0.01-0.20) 03/02/25 06:58 Toxic Vacuolation 1+ 03/02/25 06:58 Dohle Bodies 1+ 03/02/25 06:58 Polychromasia 1+ 03/01/25 13:40 Echinocytes 1+ 03/02/25 06:58 Sodium 136 mmol/L (136-145) 03/03/25 06:31 Potassium 4.0 mmol/L (3.5-5.1) 03/03/25 06:31 Chloride 103 mmol/L (98-107) 03/03/25 06:31 Carbon Dioxide 24 mmol/L (21-32) 03/03/25 06:31 Anion Gap 9 (3-11) 03/03/25 06:31 BUN 17 mg/dl (6-23) 03/03/25 06:31 Creatinine 0.67 mg/dl (0.6-1.2) D 03/03/25 06:31 Est Cr Clr Drug Dosing 140.9 ml/min 03/03/25 06:31 eGFR 113.95 03/03/25 06:31 BUN/Creatinine Ratio 25.4 (10-20) H 03/03/25 06:31 Glucose 144 mg/dl (70-99(Fasting)) H 03/03/25 06:31 Estimat Average Glucose 111 mg/dl 03/02/25 06:58 Hemoglobin A1c 5.5 % (4.5-5.6) 03/02/25 06:58 Lactate 1.2 mmol/L (0.4-2.0) 03/01/25 13:50 Calcium 9.4 mg/dl (8.6-10.3) 03/03/25 06:31 Phosphorus 2.8 mg/dl (2.5-4.9) 03/02/25 06:58 Magnesium 1.7 mg/dl (1.7-2.4) 03/02/25 06:58 Total Bilirubin 0.7 mg/dl (0.2-1.0) 03/02/25 06:58 AST 13 U/L (13-39) 03/02/25 06:58 ALT 15 U/L (7-52) 03/02/25 06:58 Alkaline Phosphatase 78 U/L (34-104) 03/02/25 06:58 Total Creatine Kinase 34 U/L (26-192) 03/01/25 13:40 Total Protein 6.5 gm/dl (6.0-8.3) 03/02/25 06:58 Albumin 3.2 gm/dl (3.4-5.0) L 03/02/25 06:58 Globulin 3.3 gm/dl (2.5-4.0) 03/02/25 06:58 Albumin/Globulin Ratio 1.0 (0.9-2) 03/02/25 06:58 Procalcitonin 4.94 ng/ml (0-0.5) H 03/01/25 13:40 Urine Color Dark Yellow 03/01/25 15:47 Urine Appearance Turbid (Clear) A 03/01/25 15:47 Urine pH 5.0 (4.5-7.5) 03/01/25 15:47 Ur Specific [place] 1.033 (1.000-1.030) H 03/01/25 15:47 Urine Protein 2+ (Negative) H 03/01/25 15:47 Urine Glucose (UA) Negative (Negative) 03/01/25 15:47 Urine Ketones Trace (Negative) H 03/01/25 15:47 Urine Blood 3+ (Negative) H 03/01/25 15:47 Urine Nitrite Negative (Negative) 03/01/25 15:47 Urine Bilirubin 2+ (Negative) H 03/01/25 15:47 Urine Urobilinogen Positive (Negative) H 03/01/25 15:47 Ur Leukocyte Esterase 1+ (Negative) H 03/01/25 15:47 Urine WBC (Auto) 6-10 /hpf (0-5) H 03/01/25 15:47 Urine RBC (Auto) >20 /hpf (0-2) H 03/01/25 15:47 U Hyaline Cast (Auto) >20 /lpf (0-2) H 03/01/25 15:47 U Epithel Cells (Auto) 11-20 /hpf (0-2) H 03/01/25 15:47 Urine Bacteria (Auto) 2+ (None Seen) H 03/01/25 15:47 Calcium Oxalate Crystal Present (None Prsent) A 03/01/25 15:47 Hyaline Casts Present /lpf (None Presnt) A 03/01/25 15:47 Granular Casts Present /lpf (None Prsent) A 03/01/25 15:47 Urine Comment 03/01/25 15:47 Fluid Comment 03/02/25 09:45 CSF Appearance Clear 03/02/25 09:45 CSF Color Colorless 03/02/25 09:45 Xanthrochromic No xanthochromia 03/02/25 09:45 CSF WBC 0 (0-5) 03/02/25 09:45 CSF RBC 87 (0) 03/02/25 09:45 CSF Cell Count Tube # 3 03/02/25 09:45 CSF Chemistry Tube # 1 03/02/25 09:45 CSF Chemistry Tube # Cancelled 03/02/25 09:45 CSF Glucose 78 mg/dl (40-70) H 03/02/25 09:45 CSF Glucose Cancelled 03/02/25 09:45 CSF Total Protein 26.9 mg/dl (15-45) 03/02/25 09:45 CSF C.neoform/gat PCR Not Detected (NotDetected) 03/02/25 09:45 CSF CMV DNA (PCR) Not Detected (NotDetected) 03/02/25 09:45 CSF Enterovirus (PCR) Not Detected (NotDetected) 03/02/25 09:45 CSF E. coli K1 (PCR) Not Detected (NotDetected) 03/02/25 09:45 CSF H. influenzae (PCR) Not Detected (NotDetected) 03/02/25 09:45 CSF HSV I (PCR) Not Detected (NotDetected) 03/02/25 09:45 CSF HSV II (PCR) Not Detected (NotDetected) 03/02/25 09:45 CSF HHV 6 (PCR) Not Detected (NotDetected) 03/02/25 09:45 CSF L.monocytogenes PCR Not Detected (NotDetected) 03/02/25 09:45 CSF N. meningitidis PCR Not Detected (NotDetected) 03/02/25 09:45 CSF Parechovirus (PCR) Not Detected (NotDetected) 03/02/25 09:45 CSF S. agalactiae (PCR) Not Detected (NotDetected) 03/02/25 09:45 CSF S. pneumoniae (PCR) Not Detected (NotDetected) 03/02/25 09:45 CSF VZV DNA (PCR) Not Detected (NotDetected) 03/02/25 09:45 Adenovirus (PCR) Not Detected (NotDetected) 03/01/25 13:48 B. pertussis DNA (PCR) Not Detected (NotDetected) 03/01/25 13:48 B.parapertussis DNA PCR Not Detected (NotDetected) 03/01/25 13:48 Lyme Disease Screen Negative (Negative) 03/01/25 13:40 C. pneumoniae DNA (PCR) Not Detected (NotDetected) 03/01/25 13:48 Coronavirus OC43 (PCR) Not Detected (NotDetected) 03/01/25 13:48 Coronavirus HKU1 (PCR) Not Detected (NotDetected) 03/01/25 13:48 Coronavirus 229E (PCR) Not Detected (NotDetected) 03/01/25 13:48 SARS-CoV-2 (PCR) Not Detected (NotDetected) 03/01/25 13:48 Coronavirus NL63 (PCR) Not Detected (NotDetected) 03/01/25 13:48 Monoscreen Negative (Negative) 03/01/25 13:40 Human Metapneumovir PCR Not Detected (NotDetected) 03/01/25 13:48 Influenza Type A (PCR) Not Detected (NotDetected) 03/01/25 13:48 Influenza Type B (PCR) Not Detected (NotDetected) 03/01/25 13:48 M. pneumoniae (PCR) Not Detected (NotDetected) 03/01/25 13:48 Parainfluenza 1 (PCR) Not Detected (NotDetected) 03/01/25 13:48 Parainfluenza 2 (PCR) Not Detected (NotDetected) 03/01/25 13:48 Parainfluenza 3 (PCR) Not Detected (NotDetected) 03/01/25 13:48 Parainfluenza 4 (PCR) Not Detected (NotDetected) 03/01/25 13:48 RSV (PCR) Not Detected (NotDetected) 03/01/25 13:48 Entero/Rhino (PCR) Not Detected (NotDetected) 03/01/25 13:48 Impressions Cervical Spine X-Ray 03/01/25 13:37 XR cervical spine 2 or 3V CLINICAL HISTORY: neck pain, stiffness COMPARISON STUDY: None FINDINGS: There are mild degenerative findings at C5-6. No fracture or subluxation. Prevertebral soft tissues have normal thickness. IMPRESSION: C5-6 degenerative changes. ACT 112: Negative or not required by law. Electronically signed by: Cheng Briseno M.D. 03/01/2025 2:[address] 03/01/25 13:37 CT SCAN OF THE BRAIN WITHOUT IV CONTRAST CLINICAL HISTORY: Headache COMPARISON STUDY: Facial bone CT dated 05/23/2012 TECHNIQUE: Unenhanced axial CT scan of the brain is performed from the vertex to the skull base. Images are reviewed in the axial, sagittal, and coronal planes. A dose lowering technique was utilized adhering to the principles of ALARA. CT DOSE: 547.75 mGy.cm FINDINGS: Brain parenchyma: The brain parenchyma is normal in appearance. There is no hemorrhage, mass effect, or evidence of acute territorial ischemia by CT criteria. Fu-white matter differentiation is preserved. No extra-axial fluid collection is seen. There is cerebellar tonsillar ectopia consistent with a Chiari I malformation. Ventricles, sulci, cisterns: Normal in configuration. Intracranial vasculature: The visualized intracranial vasculature at the skull base is normal in appearance. Calvarium: Unremarkable. Sinuses and mastoids: The visualized paranasal sinuses are clear. The mastoid air cells are well pneumatized. Orbits: The bony orbits are grossly intact. IMPRESSION: 1. No acute intracranial abnormality. 2. 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 ACT 112: Negative or not required by law. Electronically signed by: Nick Hdez M.D. 03/01/2025 3:08 PM Venous Doppler Study 03/01/25 13:37 US venous doppler LE RT HISTORY: leg pain, swelling COMPARISON: None TECHNIQUE: Multiple real-time sonographic images of the right lower extremity deep venous structures were obtained assessing grayscale appearance, color and spectral flow. FINDINGS: No evidence of DVT seen at the right lower extremity. Small normal- appearing lymph node measuring 1.4 cm is incidentally seen in the right popliteal fossa. IMPRESSION: No evidence of DVT seen. ACT 112: Negative or not required by law. The above report was generated using voice recognition software. It may contain grammatical, syntax or spelling errors. Electronically signed by: Cheng Briseno M.D. 03/01/2025 3:45 PM Abdomen/Pelvis CT 03/01/25 13:[address] WITH IV CONTRAST CT DOSE: 1348.18 mGy.cm HISTORY: blood in urine, white count TECHNIQUE: Multiaxial CT images of the abdomen and pelvis were performed following the IV administration of 90 cc of Optiray, A dose lowering technique was utilized adhering to the principles of ALARA. COMPARISON STUDY: 12/26/2024 FINDINGS: Since the prior examination, there are ventral hernias have been repaired and there is a ventral scar from the prior surgery. Several small bowel loops appear to be tethered to the surgical site along the peritoneal surface anteriorly. There is no evidence of obstruction. There is no free air in the abdomen. The liver remains enlarged. The gallbladder is moderately distended. There are no gallstones identified. The pancreas and adrenal glands and spleen are unremarkable. The kidneys demonstrate bilateral nonobstructive stones as before. There is no bowel obstruction or free air as previously stated. There is no aortic aneurysm or periaortic adenopathy. In the pelvis, the appendix is not identified. The urinary bladder is empty and cannot be evaluated. The uterus is absent. IMPRESSION: Hepatomegaly with no focal liver lesions identified. The liver has increased in size from 19 to 22 cm since the prior examination. Moderate gallbladder distention with no secondary signs of inflammation. Postsurgical repair of ventral hernias with probable adhesions tethering the small bowel loops against the anterior peritoneal surface. No obstruction or free air. Bilateral, nonobstructive2 nephrolithiasis redemonstrated. ACT 112: Negative or not required by law. The above report was generated using voice recognition software. It may contain grammatical, syntax or spelling errors. Electronically signed by: Kasey Delong M.D. 03/01/2025 3:16 PM Chest X-Ray 03/01/25 14:40 XR chest 1V portable CLINICAL HISTORY: FEVER COMPARISON STUDY: None FINDINGS: Single view portable chest demonstrates no acute cardiopulmonary process. Is no airspace opacity or pleural effusion. The heart and pulmonary vascularity are normal for technique. IMPRESSION: Negative portable chest ACT 112: Negative or not required by law. Electronically signed by: Kasey Delong M.D. 03/01/2025 2:51 PM Femur MRI 03/02/25 00:18 EXAM: MR femur RT wo/w con CLINICAL HISTORY: Severe right leg pain TECHNIQUE: Multiplanar, multiecho MRI of the right femur was performed without and with 11ml Gadavist the administration of intravenous contrast. Images were sent through PACs for diagnostic interpretation. COMPARISON: None. FINDINGS: Bones: Normal alignment of the femur. No fractures or dislocations. No lytic or sclerotic lesions. No bone marrow edema or contusions. Normal enhancement post-contrast. Muscles: The hamstring muscle group appears swollen with an intermuscular fluid collection extending between: Anteriorly: the short head of the biceps femoris and adductor muscles. Posteriorly: the long head of the biceps femoris, semitendinosus, and semimembranosus muscles. This collection shows fluid signal intensity on T2-weighted images and demonstrates smooth marginal post-contrast enhancement. Maximum thickness measures approximately 21 mm. Muscle Signal Abnormality: Abnormal high T2 signal intensity is noted within the distal adductor muscles, indicating muscle strain or injury. No muscle tear seen. No intramuscular fluid collections identified. Marked subcutaneous edema is seen along the lateral aspect of the lower thigh. Small cysts are noted just posterior to the distal femoral metaphysis, likely reactive. Tendons and Ligaments: The examined conjoined tendon appears intact. Intact and normal appearance of the major tendons and ligaments in thigh. No evidence of tendinopathy, tendon tears, or ligamentous injury. Normal enhancement post-contrast. Neurovascular Structures: Normal appearance of the visualized neurovascular structures. No evidence of compression or abnormal signal changes. Mild knee osteoarthritic changes noted. Few reactive inguinal lymph nodes seen. IMPRESSION: 1. Intermuscular fluid collection tracking between the hamstring muscle groups with edema of the hamstring muscles and intermuscular hematoma, suggestive of grade 2 strain. 2. High T2 signal intensity within the distal adductor muscles; consistent with grade 1 muscular strain. 3. Marked subcutaneous edema over the lateral lower thigh, post-traumatic. 4. No evidence of bone marrow contusion, fracture, or neoplastic lesions. Electronically signed by Jason Buchanan 03-02-2025 04:12 AM Lumbar Spine MRI 03/02/25 00:18 EXAM: MR lumbar spine wo/w con CLINICAL HISTORY: Severe right leg pain TECHNIQUE: MRI of the lumbar spine was performed without and with the of 11ml Gadavist administration of intravenous contrast, acquiring multiple sequences COMPARISON: No previous studies are available for comparison. FINDINGS: Vertebral Alignment: Normal alignment of the lumbar spine without evidence of fracture or malalignment. No evidence of scoliosis is observed. Marrow signals are normal. Vertebral Bodies and Intervertebral Discs: Normal vertebral body height, no fracture identified. No lytic or sclerotic lesions. Normal bone marrow signal intensity. Diffuse spondylosis of the lumbar spine denoted by minute marginal osteophytes, Modic changes type II of the opposing vertebral end plates of L1-2, tiny schmorl`s node along lower vertebral end plate of L4. Hypertrophy of the facet joints noted. Degenerated L1-2, L3-4, and L4-5 discs showing decreased T2 signal and height. [id number] analysis: T12-L1: There is no significant disc pathology. No spinal canal stenosis. No neural foraminal stenosis. No ligamentum flavum hypertrophy and facet joint arthropathy. L1-L2: There is 2.5 mm central focal protrusion of the disc, effacing the anterior epidural fat, indenting the dural sac. No nerve root compression. No spinal canal stenosis. No neural foraminal stenosis. L2-L3: There is no significant disc pathology. No spinal canal stenosis. No neural foraminal stenosis. No ligamentum flavum hypertrophy and facet joint arthropathy. L3-L4: There is 3.5 mm asymmetrical diffuse bulging of the disc, inclined more to the left side, effacing the anterior epidural fat, compressing the dural sac and both L4 nerve roots. The disc abutting both L3 nerve roots in the both neural foramina. There is mild spinal canal and neural foraminal stenosis. L4-L5: There is 3.5 mm central focal protrusion of the disc with annulus fibrosis tear, effacing the anterior epidural fat, compressing the dural sac and both L5 nerve roots. Mild spinal canal stenosis noted. No neural foraminal stenosis. L5-S1: There is 5.5 mm left foraminal-far lateral focal protrusion of the disc, compressing the left L5 nerve root in the neural foramen. There is moderate stenosis of the left neural foramen. No spinal canal stenosis. No right neural foraminal stenosis. Spinal Cord and Nerve Roots: Conus medullaris terminates at the L1 level without abnormality. The lower thoracic spinal cord, conus medullaris, and cauda equina nerve roots are unremarkable. Soft Tissues: Paraspinal soft tissues appear normal without evidence of abnormal signal intensity or mass lesions. Minimal soft tissue edematous changes along subcutaneous tissue of the lower back. No abnormal post-contrast enhancement. IMPRESSION: 1. Mild spondylosis of the lumbar spine with multilevel disc pathologies with no significant spinal canal stenosis as detailed above. 2. L1-L2: 2.5 mm central focal protrusion of the disc. 3. L3-L4: 3.5 mm asymmetrical diffuse bulging of the disc, inclined more to the left side, compressing both L4 nerve roots, abutting both L3 nerve root in both neural foramina. Mild spinal canal and neural foraminal stenosis. 4. L4-L5: 3.5 mm central focal protrusion of the disc with annulus fibrosis tear, compressing the dural sac and both L5 nerve roots. Mild spinal canal stenosis. 5. L5-S1: 5.5 mm left foraminal-far lateral focal protrusion of the disc, compressing the left L5 nerve root in the neural foramen. Moderate stenosis of the left neural foramen. Electronically signed by Jason Buchanan 03-02-2025 03:58 AM Lower Extremity MRI 03/02/25 00:19 EXAM: MR lower leg RT wo/w con CLINICAL HISTORY: Severe right leg pain. TECHNIQUE: Multiplanar, multiecho MRI of the right tibia and fibula was performed without and with the administration of 11cc gadavist intravenous contrast. Images were sent through PACs for diagnostic interpretation. COMPARISON: None. FINDINGS: Bones: Normal alignment of the tibia and fibula. No fractures or dislocations. No lytic or sclerotic lesions. No bone marrow edema or contusions. Normal enhancement post-contrast. Joints: Knee osteoarthritic changes with narrowed knee compartments and peripheral osteophytic lipppings. Articular surfaces are smooth without erosions. Normal enhancement post-contrast. Muscles: There is mild edema of the lateral head of the gastrocnemius muscle. There is prominent edema of the medial head of the gastrocnemius muscle. There is focal collection at the distal gastrocnemius mascle with irregularity and distruption of the muscle fascia on the distal segment. These findings are suggestive of grade 2 strain. Tendons and Ligaments: Intact and normal appearance of the major tendons and ligaments around the tibia and fibula. No evidence of tendinopathy, tendon tears, or ligamentous injury. Normal enhancement post-contrast. Neurovascular Structures: Normal appearance of the visualized neurovascular structures. No evidence of compression or abnormal signal changes. Soft Tissues: Posterior subcutaneous soft tissue edema is noted. Smooth marginal enhancement of the subfascial collection noted. IMPRESSION: 1. Grade 2 strain of the medial head of the gastrocnemius muscle. 2. Grade 1 strain of the lateral head of the gastrocnemius muscle. 3. Posterior subcutaneous soft tissue edema 4. Knee osteoarthritic changes with joint space narrowing and peripheral osteophytes. Electronically signed by Jason Buchanan 03-02-2025 04:20 AM Lumbar Puncture 03/02/25 11:00 IR lumbar puncture diagnostic CLINICAL HISTORY: AGUILLON/fevers/neck pain, r/o meningitis. PROCEDURE: The risks, benefits, and alternatives to the procedure is discussed with the patient who voiced understanding. Written informed consent was obtained. The patient was placed prone on the fluoroscopy table. The lower back was prepped and draped in the usual sterile fashion. 1% lidocaine was used for local anesthesia. A 22-gauge spinal needle was inserted into the L4-5 interlaminar space, and approximately 8 cc of clear colorless cerebrospinal fluid was removed. The patient tolerated the procedure well. There were no immediate complications. The patient was then transported to the medical treatment unit for further observation. Fluoroscopy time: 5 seconds Fluoroscopy images: 2 Ka,r: 6 mGy IMPRESSION: Fluoroscopic guided lumbar puncture with removal of approximately 8 cc of cerebrospinal fluid. There were no immediate complications. ACT 112: Negative or not required by law. The above report was generated using voice recognition software. It may contain grammatical, syntax or spelling errors. Electronically signed by: Cheng Briseno M.D. 03/02/2025 3:[address] 03/03/25 10:04 Clinical history: Cellulitis Technique: Axial computed tomography images were obtained of the right lower leg after the administration of intravenous contrast. Sagittal and coronal reconstructions were obtained Findings: No acute fracture is identified. There is a well corticated bone fragment adjacent to the tibial tuberosity that may be due to old injury. No subluxation or dislocation is seen. There are small osteophytes in all 3 compartments of the right knee. No focal osseous lesion is evident. There is a small bipartite accessory navicular bone. The visualized musculature appears unremarkable. There is mild diffuse subcutaneous edema. No definite soft tissue mass or focal fluid collection is seen. There is a small knee effusion. No foreign body is evident Impression: 1. Subcutaneous edema that may be due to cellulitis 2. No definite abscess or osteomyelitis 3. Small right knee effusion 4. Mild right knee osteoarthritis 5. Suspected old injury of the tibial tuberosity Electronically signed by Adan Patel 03-03-2025 11:35 AM
[2025-03-03] MEDS: CELECOXIB 100 MG CAP PO SCH (19:33)
[2025-03-03] MEDS: CYCLOBENZAPRINE HCL 10 MG TAB PO SCH (19:34)
--- NOTE | 2025-03-04 03:11 | Ultrasound Report ---
EXAM: US venous doppler LE CLINICAL HISTORY: Right leg worsening erythema. Dvt? TECHNIQUE: Ultrasound examination of bilateral lower extremity veins was performed in real time and duplex. One or more of the following were performed- spectral analysis, resistive index, waveform analysis, and pulsed Doppler. COMPARISON: 03/01/2025, Ultrasound right. FINDINGS: Right posterior tibial and peroneal veins are not visualized on images, due to swelling Normal phasic, non-pulsatile and spontaneous flow is noted in visualized bilateral visualized greater saphenous, common femoral, superficial femoral, popliteal, anterior tibial, left posterior tibial and left peroneal veins. Visualized veins of both lower extremities demonstrate normal compressibility. No sonographic evidence of acute deep vein thrombosis (DVT) is detected in the visualized veins of both lower extremities. Compression and Augmentation: All evaluated veins compress fully with applied transducer pressure. Augmentation of venous flow is noted with distal compression. Additional Findings: No evidence of intraluminal thrombus. Soft tissue edema is identified in both lower limbs, relatively greater on the right side IMPRESSION: 1. Right posterior tibial and peroneal veins are not visualized due to swelling. 2. No sonographic evidence of acute DVT was detected in the bilateral common femoral, superficial femoral, popliteal, anterior tibial, left posterior tibial and left peroneal veins, at the time of examination. 3. Soft tissue edema is identified in both lower limbs, relatively greater on the right side. Relatively greater soft tissue edema in the right lower limb in current examination. Disclaimer: DVT could be missed early in the disease when clot burden is minimal. For patients with moderate and high pretest probability of DVT and negative ultrasound, the [employer] clinical guidelines recommend testing with a D-dimer assay or repeat ultrasound in 5-7 days. If symptoms worsen, the Society of radiologists in ultrasound recommends repeating ultrasound even earlier. Electronically signed by Jason Buchanan 03-04-2025 03:11 AM
[2025-03-04 07:00] LABS: Hematocrit (blood only) 28.3 % (37.0-47.0); Hemoglobin 9.6 g/dl (12.0-16.0); Mean Corpuscular Hemoglobin 31.0 pg (25.0-34.0); Mean Corpuscular Volume 91.3 fL (80.0-100.0); Platelet Count 308 K/uL (130-400); RDW Standard Deviation 46.2 fL (36.4-46.3); Red Blood Count 3.10 M/uL (4.20-5.40); White Blood Count 28.84 K/ul (4.8-10.8)
[2025-03-04 07:35] LABS: Anion Gap 8.0 (3-11); Blood Urea Nitrogen 13.0 mg/dl (6-23); Calcium 9.4 mg/dl (8.6-10.3); Carbon Dioxide 26.0 mmol/L (21-32); Chloride 103.0 mmol/L (98-107); Creatinine Clr Calc Pharmacy 133.1 ml/min; Glucose 107.0 mg/dl (70-99(Fasting)); Potassium 3.3 mmol/L (3.5-5.1); Sodium 137.0 mmol/L (136-145)
[2025-03-04] MEDS ORDERED: VANCOMYCIN CONSULT ACTIVE PRN (07:48)
[2025-03-04] MEDS: POTASSIUM CHLORIDE CRTAB 20 MEQ TABCR PO STA (08:11)
--- NOTE | 2025-03-04 10:17 | Pharmacy Report ---
Pharmacy PK ABX Note - Date of Service March 04, 2025 - Assessment and Plan Assessment 39 year old F receiving Vancomycin and Zosyn for treatment of sepsis from unknown source, possibly cellulitis. * Day #2 of antimicrobial therapy. Daptomycin switched to Vancomycin this AM given worsening. * Leukocytosis of 29k. SCr at baseline. ESR/CRP elevated. Cultures pending. Plan Vancomycin * Maintenance dose: 1750 mg IV every 12 hours * Regimen is predicted to achieve target AUC/KAMILA of 400-600 mg/L.hr * Random level ordered for: 03/06/25 Pharmacy will continue to follow and will adjust dose/frequency as necessary. Thank you. Pharmacy has transitioned to AUC monitoring for vancomycin. AUC/KAMILA is the preferred PK/PD target and is associated with decreased risk of nephrotoxicity compared to traditional trough targets.
--- NOTE | 2025-03-04 11:46 | XCELERA ---
[id number] \\[id number]
--- NOTE | 2025-03-04 12:17 | Orthopedic Progress Note ---
Date of Service March 04, 2025 Assessment & Plan (1) Acute pain of right lower extremity: Plan: IMPRESSION: RLE pain secondarily to calf and hamstring strains, and cellulitis, increased pain may be associated with lumbar nerve irritation. No evidence of abscess or compartment syndrome. Continue conservative treatment. PLAN: Continue Abx. Pain control: continue with Tylenol, Dilaudid, consider adding in Celebrex 200 mg PO BID x weeks, then once daily, and also adding a muscle relaxant. WBAT with walker. PT/OT RICE Continue care per Hospitalist service. Will continue to follow. Admission and Anticipated Discharge Date Admission Date: March 01, 2025 Subjective The Celebrex and muscle relaxant is helping, having increase pain of calf and spreading of cellulitis. Physical Exam Physical Exam: RLE: Sensation to light touch is intact distally. BCR < 2 sec. Motor to gastroc soleus 4/5, Tib ant & EHL 5/5. Able to preform straight leg raise. ++ TTP medial gastroc > lateral gastroc, Hamstring. + Bruising posterolateral thigh, distally. Area of Cellulitis medial calf has spread. Calf and thigh are soft, tender. Pain with passive flexion of the calf. Knee ROM 0-90 deg. - effusion. - straight leg raise. Results & Data Vital Signs (Past 12 Hours) Vital Signs Temp Pulse Pulse Resp BP BP Pulse Ox 03/04/25 11:08 36.8 C 73 17 113/68 97 03/04/25 07:43 36.8 C 77 18 106/69 98 03/04/25 05:39 83 03/04/25 03:49 36.9 C 71 20 97/61 L 95 O2 Del Method 03/04/25 11:08 Room Air 03/04/25 07:43 Room Air 03/04/25 05:39 03/04/25 03:49 Room Air Laboratory Results Laboratory Results WBC 28.84 K/ul (4.8-10.8) H 03/04/25 06:39 RBC 3.10 M/uL (4.20-5.40) L 03/04/25 06:39 Hgb 9.6 g/dl (12.0-16.0) L 03/04/25 06:39 Hct 28.3 % (37.0-47.0) L 03/04/25 06:39 MCV 91.3 fL (80.0-100.0) 03/04/25 06:39 MCH 31.0 pg (25.0-34.0) 03/04/25 06:39 MCHC 33.9 g/dL (32.0-36.0) 03/04/25 06:39 RDW Std Deviation 46.2 fL (36.4-46.3) 03/04/25 06:39 RDW Coeff of Tram 13.8 % (11.5-14.5) 03/04/25 06:39 Plt Count 308 K/uL (130-400) 03/04/25 06:39 MPV 10.1 fL (9.4-12.4) 03/04/25 06:39 Immature Gran % (Auto) 0.8 % 03/02/25 06:58 Neut % (Auto) 89.2 % 03/02/25 06:58 Lymph % (Auto) 2.9 % 03/02/25 06:58 Piute % (Auto) 6.7 % 03/02/25 06:58 Eos % (Auto) 0.2 % 03/02/25 06:58 Baso % (Auto) 0.2 % 03/02/25 06:58 Neut # (Auto) 16.70 K/uL (1.40-6.50) H 03/02/25 06:58 Lymph # (Auto) 0.55 K/uL (1.20-3.40) L 03/02/25 06:58 Piute # (Auto) 1.25 K/uL (0.11-0.59) H 03/02/25 06:58 Eos # (Auto) 0.04 K/uL (0.00-0.50) 03/02/25 06:58 Baso # (Auto) 0.04 K/uL (0.00-0.20) 03/02/25 06:58 Immature Gran # (Auto) 0.15 K/uL (0.01-0.20) 03/02/25 06:58 Toxic Vacuolation 1+ 03/02/25 06:58 Dohle Bodies 1+ 03/02/25 06:58 Polychromasia 1+ 03/01/25 13:40 Echinocytes 1+ 03/02/25 06:58 ESR > 130 mm/hr (0-20) H 03/04/25 07:59 Sodium 137 mmol/L (136-145) 03/04/25 06:39 Potassium 3.3 mmol/L (3.5-5.1) L 03/04/25 06:39 Chloride 103 mmol/L (98-107) 03/04/25 06:39 Carbon Dioxide 26 mmol/L (21-32) 03/04/25 06:39 Anion Gap 8 (3-11) 03/04/25 06:39 BUN 13 mg/dl (6-23) 03/04/25 06:39 Creatinine 0.71 mg/dl (0.6-1.2) 03/04/25 06:39 Est Cr Clr Drug Dosing 133.1 ml/min 03/04/25 06:39 eGFR 110.85 03/04/25 06:39 BUN/Creatinine Ratio 18.3 (10-20) 03/04/25 06:39 Glucose 107 mg/dl (70-99(Fasting)) H 03/04/25 06:39 Estimat Average Glucose 111 mg/dl 03/02/25 06:58 Hemoglobin A1c 5.5 % (4.5-5.6) 03/02/25 06:58 Lactate 1.7 mmol/L (0.4-2.0) 03/04/25 07:59 Calcium 9.4 mg/dl (8.6-10.3) 03/04/25 06:39 Phosphorus 2.8 mg/dl (2.5-4.9) 03/02/25 06:58 Magnesium 1.7 mg/dl (1.7-2.4) 03/02/25 06:58 Total Bilirubin 0.7 mg/dl (0.2-1.0) 03/02/25 06:58 AST 13 U/L (13-39) 03/02/25 06:58 ALT 15 U/L (7-52) 03/02/25 06:58 Alkaline Phosphatase 78 U/L (34-104) 03/02/25 06:58 Total Creatine Kinase 34 U/L (26-192) 03/01/25 13:40 C-Reactive Protein 46.17 mg/dl (0-0.5) H 03/04/25 07:59 B-Natriuretic Peptide 327 pg/ml (0-100) H 03/04/25 07:59 Total Protein 6.5 gm/dl (6.0-8.3) 03/02/25 06:58 Albumin 3.2 gm/dl (3.4-5.0) L 03/02/25 06:58 Globulin 3.3 gm/dl (2.5-4.0) 03/02/25 06:58 Albumin/Globulin Ratio 1.0 (0.9-2) 03/02/25 06:58 Procalcitonin 4.94 ng/ml (0-0.5) H 03/01/25 13:40 Urine Color Dark Yellow 03/01/25 15:47 Urine Appearance Turbid (Clear) A 03/01/25 15:47 Urine pH 5.0 (4.5-7.5) 03/01/25 15:47 Ur Specific Almond 1.033 (1.000-1.030) H 03/01/25 15:47 Urine Protein 2+ (Negative) H 03/01/25 15:47 Urine Glucose (UA) Negative (Negative) 03/01/25 15:47 Urine Ketones Trace (Negative) H 03/01/25 15:47 Urine Blood 3+ (Negative) H 03/01/25 15:47 Urine Nitrite Negative (Negative) 03/01/25 15:47 Urine Bilirubin 2+ (Negative) H 03/01/25 15:47 Urine Urobilinogen Positive (Negative) H 03/01/25 15:47 Ur Leukocyte Esterase 1+ (Negative) H 03/01/25 15:47 Urine WBC (Auto) 6-10 /hpf (0-5) H 03/01/25 15:47 Urine RBC (Auto) >20 /hpf (0-2) H 03/01/25 15:47 U Hyaline Cast (Auto) >20 /lpf (0-2) H 03/01/25 15:47 U Epithel Cells (Auto) 11-20 /hpf (0-2) H 03/01/25 15:47 Urine Bacteria (Auto) 2+ (None Seen) H 03/01/25 15:47 Calcium Oxalate Crystal Present (None Prsent) A 03/01/25 15:47 Hyaline Casts Present /lpf (None Presnt) A 03/01/25 15:47 Granular Casts Present /lpf (None Prsent) A 03/01/25 15:47 Urine Comment 03/01/25 15:47 Fluid Comment 03/02/25 09:45 CSF Appearance Clear 03/02/25 09:45 CSF Color Colorless 03/02/25 09:45 Xanthrochromic No xanthochromia 03/02/25 09:45 CSF WBC 0 (0-5) 03/02/25 09:45 CSF RBC 87 (0) 03/02/25 09:45 CSF Cell Count Tube # 3 03/02/25 09:45 CSF Chemistry Tube # 1 03/02/25 09:45 CSF Chemistry Tube # Cancelled 03/02/25 09:45 CSF Glucose 78 mg/dl (40-70) H 03/02/25 09:45 CSF Glucose Cancelled 03/02/25 09:45 CSF Total Protein 26.9 mg/dl (15-45) 03/02/25 09:45 CSF C.neoform/gat PCR Not Detected (NotDetected) 03/02/25 09:45 CSF CMV DNA (PCR) Not Detected (NotDetected) 03/02/25 09:45 CSF Enterovirus (PCR) Not Detected (NotDetected) 03/02/25 09:45 CSF E. coli K1 (PCR) Not Detected (NotDetected) 03/02/25 09:45 CSF H. influenzae (PCR) Not Detected (NotDetected) 03/02/25 09:45 CSF HSV I (PCR) Not Detected (NotDetected) 03/02/25 09:45 CSF HSV II (PCR) Not Detected (NotDetected) 03/02/25 09:45 CSF HHV 6 (PCR) Not Detected (NotDetected) 03/02/25 09:45 CSF L.monocytogenes PCR Not Detected (NotDetected) 03/02/25 09:45 CSF N. meningitidis PCR Not Detected (NotDetected) 03/02/25 09:45 CSF Parechovirus (PCR) Not Detected (NotDetected) 03/02/25 09:45 CSF S. agalactiae (PCR) Not Detected (NotDetected) 03/02/25 09:45 CSF S. pneumoniae (PCR) Not Detected (NotDetected) 03/02/25 09:45 CSF VZV DNA (PCR) Not Detected (NotDetected) 03/02/25 09:45 Adenovirus (PCR) Not Detected (NotDetected) 03/01/25 13:48 B. pertussis DNA (PCR) Not Detected (NotDetected) 03/01/25 13:48 B.parapertussis DNA PCR Not Detected (NotDetected) 03/01/25 13:48 Lyme Disease Screen Negative (Negative) 03/01/25 13:40 C. pneumoniae DNA (PCR) Not Detected (NotDetected) 03/01/25 13:48 Coronavirus OC43 (PCR) Not Detected (NotDetected) 03/01/25 13:48 Coronavirus HKU1 (PCR) Not Detected (NotDetected) 03/01/25 13:48 Coronavirus 229E (PCR) Not Detected (NotDetected) 03/01/25 13:48 SARS-CoV-2 (PCR) Not Detected (NotDetected) 03/01/25 13:48 Coronavirus NL63 (PCR) Not Detected (NotDetected) 03/01/25 13:48 Monoscreen Negative (Negative) 03/01/25 13:40 Human Metapneumovir PCR Not Detected (NotDetected) 03/01/25 13:48 Influenza Type A (PCR) Not Detected (NotDetected) 03/01/25 13:48 Influenza Type B (PCR) Not Detected (NotDetected) 03/01/25 13:48 M. pneumoniae (PCR) Not Detected (NotDetected) 03/01/25 13:48 Parainfluenza 1 (PCR) Not Detected (NotDetected) 03/01/25 13:48 Parainfluenza 2 (PCR) Not Detected (NotDetected) 03/01/25 13:48 Parainfluenza 3 (PCR) Not Detected (NotDetected) 03/01/25 13:48 Parainfluenza 4 (PCR) Not Detected (NotDetected) 03/01/25 13:48 RSV (PCR) Not Detected (NotDetected) 03/01/25 13:48 Entero/Rhino (PCR) Not Detected (NotDetected) 03/01/25 13:48 Impressions Cervical Spine X-Ray 03/01/25 13:37 XR cervical spine 2 or 3V CLINICAL HISTORY: neck pain, stiffness COMPARISON STUDY: None FINDINGS: There are mild degenerative findings at C5-6. No fracture or subluxation. Prevertebral soft tissues have normal thickness. IMPRESSION: C5-6 degenerative changes. ACT 112: Negative or not required by law. Electronically signed by: Cheng Briseno M.D. 03/01/2025 2:[address] 03/01/25 13:37 CT SCAN OF THE BRAIN WITHOUT IV CONTRAST CLINICAL HISTORY: Headache COMPARISON STUDY: Facial bone CT dated 05/23/2012 TECHNIQUE: Unenhanced axial CT scan of the brain is performed from the vertex to the skull base. Images are reviewed in the axial, sagittal, and coronal planes. A dose lowering technique was utilized adhering to the principles of ALARA. CT DOSE: 547.75 mGy.cm FINDINGS: Brain parenchyma: The brain parenchyma is normal in appearance. There is no hemorrhage, mass effect, or evidence of acute territorial ischemia by CT criteria. Fu-white matter differentiation is preserved. No extra-axial fluid collection is seen. There is cerebellar tonsillar ectopia consistent with a Chiari I malformation. Ventricles, sulci, cisterns: Normal in configuration. Intracranial vasculature: The visualized intracranial vasculature at the skull base is normal in appearance. Calvarium: Unremarkable. Sinuses and mastoids: The visualized paranasal sinuses are clear. The mastoid air cells are well pneumatized. Orbits: The bony orbits are grossly intact. IMPRESSION: 1. No acute intracranial abnormality. 2. 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 ACT 112: Negative or not required by law. Electronically signed by: Nick Hdez M.D. 03/01/2025 3:08 PM Abdomen/Pelvis CT 03/01/25 13:[address] WITH IV CONTRAST CT DOSE: 1348.18 mGy.cm HISTORY: blood in urine, white count TECHNIQUE: Multiaxial CT images of the abdomen and pelvis were performed following the IV administration of 90 cc of Optiray, A dose lowering technique was utilized adhering to the principles of ALARA. COMPARISON STUDY: 12/26/2024 FINDINGS: Since the prior examination, there are ventral hernias have been repaired and there is a ventral scar from the prior surgery. Several small bowel loops appear to be tethered to the surgical site along the peritoneal surface anteriorly. There is no evidence of obstruction. There is no free air in the abdomen. The liver remains enlarged. The gallbladder is moderately distended. There are no gallstones identified. The pancreas and adrenal glands and spleen are unremarkable. The kidneys demonstrate bilateral nonobstructive stones as before. There is no bowel obstruction or free air as previously stated. There is no aortic aneurysm or periaortic adenopathy. In the pelvis, the appendix is not identified. The urinary bladder is empty and cannot be evaluated. The uterus is absent. IMPRESSION: Hepatomegaly with no focal liver lesions identified. The liver has increased in size from 19 to 22 cm since the prior examination. Moderate gallbladder distention with no secondary signs of inflammation. Postsurgical repair of ventral hernias with probable adhesions tethering the small bowel loops against the anterior peritoneal surface. No obstruction or free air. Bilateral, nonobstructive2 nephrolithiasis redemonstrated. ACT 112: Negative or not required by law. The above report was generated using voice recognition software. It may contain grammatical, syntax or spelling errors. Electronically signed by: Kasey Delong M.D. 03/01/2025 3:16 PM Chest X-Ray 03/01/25 14:40 XR chest 1V portable CLINICAL HISTORY: FEVER COMPARISON STUDY: None FINDINGS: Single view portable chest demonstrates no acute cardiopulmonary process. Is no airspace opacity or pleural effusion. The heart and pulmonary vascularity are normal for technique. IMPRESSION: Negative portable chest ACT 112: Negative or not required by law. Electronically signed by: Kasey Delong M.D. 03/01/2025 2:51 PM Femur MRI 03/02/25 00:18 EXAM: MR femur RT wo/w con CLINICAL HISTORY: Severe right leg pain TECHNIQUE: Multiplanar, multiecho MRI of the right femur was performed without and with 11ml Gadavist the administration of intravenous contrast. Images were sent through PACs for diagnostic interpretation. COMPARISON: None. FINDINGS: Bones: Normal alignment of the femur. No fractures or dislocations. No lytic or sclerotic lesions. No bone marrow edema or contusions. Normal enhancement post-contrast. Muscles: The hamstring muscle group appears swollen with an intermuscular fluid collection extending between: Anteriorly: the short head of the biceps femoris and adductor muscles. Posteriorly: the long head of the biceps femoris, semitendinosus, and semimembranosus muscles. This collection shows fluid signal intensity on T2-weighted images and demonstrates smooth marginal post-contrast enhancement. Maximum thickness measures approximately 21 mm. Muscle Signal Abnormality: Abnormal high T2 signal intensity is noted within the distal adductor muscles, indicating muscle strain or injury. No muscle tear seen. No intramuscular fluid collections identified. Marked subcutaneous edema is seen along the lateral aspect of the lower thigh. Small cysts are noted just posterior to the distal femoral metaphysis, likely reactive. Tendons and Ligaments: The examined conjoined tendon appears intact. Intact and normal appearance of the major tendons and ligaments in thigh. No evidence of tendinopathy, tendon tears, or ligamentous injury. Normal enhancement post-contrast. Neurovascular Structures: Normal appearance of the visualized neurovascular structures. No evidence of compression or abnormal signal changes. Mild knee osteoarthritic changes noted. Few reactive inguinal lymph nodes seen. IMPRESSION: 1. Intermuscular fluid collection tracking between the hamstring muscle groups with edema of the hamstring muscles and intermuscular hematoma, suggestive of grade 2 strain. 2. High T2 signal intensity within the distal adductor muscles; consistent with grade 1 muscular strain. 3. Marked subcutaneous edema over the lateral lower thigh, post-traumatic. 4. No evidence of bone marrow contusion, fracture, or neoplastic lesions. Electronically signed by Jason Buchanan 03-02-2025 04:12 AM Lumbar Spine MRI 03/02/25 00:18 EXAM: MR lumbar spine wo/w con CLINICAL HISTORY: Severe right leg pain TECHNIQUE: MRI of the lumbar spine was performed without and with the of 11ml Gadavist administration of intravenous contrast, acquiring multiple sequences COMPARISON: No previous studies are available for comparison. FINDINGS: Vertebral Alignment: Normal alignment of the lumbar spine without evidence of fracture or malalignment. No evidence of scoliosis is observed. Marrow signals are normal. Vertebral Bodies and Intervertebral Discs: Normal vertebral body height, no fracture identified. No lytic or sclerotic lesions. Normal bone marrow signal intensity. Diffuse spondylosis of the lumbar spine denoted by minute marginal osteophytes, Modic changes type II of the opposing vertebral end plates of L1-2, tiny schmorl`s node along lower vertebral end plate of L4. Hypertrophy of the facet joints noted. Degenerated L1-2, L3-4, and L4-5 discs showing decreased T2 signal and height. [id number] analysis: T12-L1: There is no significant disc pathology. No spinal canal stenosis. No neural foraminal stenosis. No ligamentum flavum hypertrophy and facet joint arthropathy. L1-L2: There is 2.5 mm central focal protrusion of the disc, effacing the anterior epidural fat, indenting the dural sac. No nerve root compression. No spinal canal stenosis. No neural foraminal stenosis. L2-L3: There is no significant disc pathology. No spinal canal stenosis. No neural foraminal stenosis. No ligamentum flavum hypertrophy and facet joint arthropathy. L3-L4: There is 3.5 mm asymmetrical diffuse bulging of the disc, inclined more to the left side, effacing the anterior epidural fat, compressing the dural sac and both L4 nerve roots. The disc abutting both L3 nerve roots in the both neural foramina. There is mild spinal canal and neural foraminal stenosis. L4-L5: There is 3.5 mm central focal protrusion of the disc with annulus fibrosis tear, effacing the anterior epidural fat, compressing the dural sac and both L5 nerve roots. Mild spinal canal stenosis noted. No neural foraminal stenosis. L5-S1: There is 5.5 mm left foraminal-far lateral focal protrusion of the disc, compressing the left L5 nerve root in the neural foramen. There is moderate stenosis of the left neural foramen. No spinal canal stenosis. No right neural foraminal stenosis. Spinal Cord and Nerve Roots: Conus medullaris terminates at the L1 level without abnormality. The lower thoracic spinal cord, conus medullaris, and cauda equina nerve roots are unremarkable. Soft Tissues: Paraspinal soft tissues appear normal without evidence of abnormal signal intensity or mass lesions. Minimal soft tissue edematous changes along subcutaneous tissue of the lower back. No abnormal post-contrast enhancement. IMPRESSION: 1. Mild spondylosis of the lumbar spine with multilevel disc pathologies with no significant spinal canal stenosis as detailed above. 2. L1-L2: 2.5 mm central focal protrusion of the disc. 3. L3-L4: 3.5 mm asymmetrical diffuse bulging of the disc, inclined more to the left side, compressing both L4 nerve roots, abutting both L3 nerve root in both neural foramina. Mild spinal canal and neural foraminal stenosis. 4. L4-L5: 3.5 mm central focal protrusion of the disc with annulus fibrosis tear, compressing the dural sac and both L5 nerve roots. Mild spinal canal stenosis. 5. L5-S1: 5.5 mm left foraminal-far lateral focal protrusion of the disc, compressing the left L5 nerve root in the neural foramen. Moderate stenosis of the left neural foramen. Electronically signed by Jason Buchanan 03-02-2025 03:58 AM Lower Extremity MRI 03/02/25 00:19 EXAM: MR lower leg RT wo/w con CLINICAL HISTORY: Severe right leg pain. TECHNIQUE: Multiplanar, multiecho MRI of the right tibia and fibula was performed without and with the administration of 11cc gadavist intravenous contrast. Images were sent through PACs for diagnostic interpretation. COMPARISON: None. FINDINGS: Bones: Normal alignment of the tibia and fibula. No fractures or dislocations. No lytic or sclerotic lesions. No bone marrow edema or contusions. Normal enhancement post-contrast. Joints: Knee osteoarthritic changes with narrowed knee compartments and peripheral osteophytic lipppings. Articular surfaces are smooth without erosions. Normal enhancement post-contrast. Muscles: There is mild edema of the lateral head of the gastrocnemius muscle. There is prominent edema of the medial head of the gastrocnemius muscle. There is focal collection at the distal gastrocnemius mascle with irregularity and distruption of the muscle fascia on the distal segment. These findings are suggestive of grade 2 strain. Tendons and Ligaments: Intact and normal appearance of the major tendons and ligaments around the tibia and fibula. No evidence of tendinopathy, tendon tears, or ligamentous injury. Normal enhancement post-contrast. Neurovascular Structures: Normal appearance of the visualized neurovascular structures. No evidence of compression or abnormal signal changes. Soft Tissues: Posterior subcutaneous soft tissue edema is noted. Smooth marginal enhancement of the subfascial collection noted. IMPRESSION: 1. Grade 2 strain of the medial head of the gastrocnemius muscle. 2. Grade 1 strain of the lateral head of the gastrocnemius muscle. 3. Posterior subcutaneous soft tissue edema 4. Knee osteoarthritic changes with joint space narrowing and peripheral osteophytes. Electronically signed by Jason Buchanan 03-02-2025 04:20 AM Lumbar Puncture 03/02/25 11:00 IR lumbar puncture diagnostic CLINICAL HISTORY: AGUILLON/fevers/neck pain, r/o meningitis. PROCEDURE: The risks, benefits, and alternatives to the procedure is discussed with the patient who voiced understanding. Written informed consent was obtained. The patient was placed prone on the fluoroscopy table. The lower back was prepped and draped in the usual sterile fashion. 1% lidocaine was used for local anesthesia. A 22-gauge spinal needle was inserted into the L4-5 interlaminar space, and approximately 8 cc of clear colorless cerebrospinal fluid was removed. The patient tolerated the procedure well. There were no immediate complications. The [facility] observation. Fluoroscopy time: 5 seconds Fluoroscopy images: 2 Ka,r: 6 mGy IMPRESSION: Fluoroscopic guided lumbar puncture with removal of approximately 8 cc of cerebrospinal fluid. There were no immediate complications. ACT 112: Negative or not required by law. The above report was generated using voice recognition software. It may contain grammatical, syntax or spelling errors. Electronically signed by: Cheng Briseno M.D. 03/02/2025 3:[address] 03/03/25 10:04 Clinical history: Cellulitis Technique: Axial computed tomography images were obtained of the right lower leg after the administration of intravenous contrast. Sagittal and coronal reconstructions were obtained Findings: No acute fracture is identified. There is a well corticated bone fragment adjacent to the tibial tuberosity that may be due to old injury. No subluxation or dislocation is seen. There are small osteophytes in all 3 compartments of the right knee. No focal osseous lesion is evident. There is a small bipartite accessory navicular bone. The visualized musculature appears unremarkable. There is mild diffuse subcutaneous edema. No definite soft tissue mass or focal fluid collection is seen. There is a small knee effusion. No foreign body is evident Impression: 1. Subcutaneous edema that may be due to cellulitis 2. No definite abscess or osteomyelitis 3. Small right knee effusion 4. Mild right knee osteoarthritis 5. Suspected old injury of the tibial tuberosity Electronically signed by Adan Patel 03-03-2025 11:35 AM Venous Doppler Study 03/04/25 01:12 EXAM: US venous doppler LE BI CLINICAL HISTORY: Right leg worsening erythema. Dvt? TECHNIQUE: Ultrasound examination of bilateral lower extremity veins was performed in real time and duplex. One or more of the following were performed- spectral analysis, resistive index, waveform analysis, and pulsed Doppler. COMPARISON: 03/01/2025, Ultrasound right. FINDINGS: Right posterior tibial and peroneal veins are not visualized on images, due to swelling Normal phasic, non-pulsatile and spontaneous flow is noted in visualized bilateral visualized greater saphenous, common femoral, superficial femoral, popliteal, anterior tibial, left posterior tibial and left peroneal veins. Visualized veins of both lower extremities demonstrate normal compressibility. No sonographic evidence of acute deep vein thrombosis (DVT) is detected in the visualized veins of both lower extremities. Compression and Augmentation: All evaluated veins compress fully with applied transducer pressure. Augmentation of venous flow is noted with distal compression. Additional Findings: No evidence of intraluminal thrombus. Soft tissue edema is identified in both lower limbs, relatively greater on the right side IMPRESSION: 1. Right posterior tibial and peroneal veins are not visualized due to swelling. 2. No sonographic evidence of acute DVT was detected in the bilateral common femoral, superficial femoral, popliteal, anterior tibial, left posterior tibial and left peroneal veins, at the time of examination. 3. Soft tissue edema is identified in both lower limbs, relatively greater on the right side. Relatively greater soft tissue edema in the right lower limb in current examination. Disclaimer: DVT could be missed early in the disease when clot burden is minimal. For patients with moderate and high pretest probability of DVT and negative ultrasound, the [employer] clinical guidelines recommend testing with a D-dimer assay or repeat ultrasound in 5-7 days. If symptoms worsen, the Society of radiologists in ultrasound recommends repeating ultrasound even earlier. Electronically signed by Jason Buchanan 03-04-2025 03:11 AM
[2025-03-04] MEDS: VANCOMYCIN HCL 1,750 MG in SODIUM CHLORIDE 0.9% 500 ML IV SCH (12:18)
--- NOTE | 2025-03-04 12:51 | Surgery Consultation ---
Date of Consultation March 04, 2025 Assessment & Plan (1) Cellulitis: agree with broadening abx spectrum no drainable collections/abscess no obvious fascitis per ortho no compartment syndrome con't conservative measures History of Present Illness Attending Physician: Hitesh Healy MD History of Present Illness This is a 39-year-old female admitted with right lower extremity cellulitis. She has had worsening cellulitis. Previously on daptomycin and Zosyn. She was changed to vancomycin and Zosyn today. She has an orthopedic evaluation with no signs of compartment syndrome. A CT scan of her R LE shows no drainable collections and no signs of fascitis. Allergies Allergy/AdvReac Type Severity Reaction Status Date / Time No Known Allergies Allergy Unverified 01/10/25 09:03 Home Medications Medication Instructions Recorded Confirmed Type acetaminophen 325 mg tablet 325 mg PO DIRECTED PRN Pain 12/26/24 03/01/25 History (Tylenol) albuterol sulfate 90 mcg/actuation 1 puff inhalation DIRECTED PRN 12/26/24 03/01/25 History aerosol inhaler sob ashwagandha extract 1 tab PO DAILY 12/26/24 03/01/25 History buspirone 10 mg tablet 10 mg PO TID PRN Anxiety 12/26/24 03/01/25 History famotidine 20 mg tablet 20 mg PO BID 12/26/24 03/01/25 History ibuprofen 200 mg tablet 200 mg PO DIRECTED PRN Pain 12/26/24 03/01/25 History escitalopram oxalate 10 mg tablet 20 mg PO DAILY 01/10/25 03/01/25 History ondansetron HCl 4 mg tablet 4 mg PO DIRECTED PRN n/v 03/01/25 03/01/25 History semaglutide 1 mg/dose (4 mg/3 mL) 1 mg subcut WK 03/01/25 03/01/25 History subcutaneous pen injector Patient History Medical History Vomiting Recurrent ventral hernia Social History Smoking Status: Former smoker Second Hand Exposure: Yes (sometimes); Do You Dip or Chew Tobacco: No; Hx Alcohol Use: Yes Alcohol type: wine and hard liquor Hx Substance Use: No Preferred Language: Vincentian Communication Ability: Effective Day Care Worker Required: No Beliefs That Will Affect Care: None Current Living Situation: Family Other Information That Helps Us Care for You: No Feels Safe at Home: Yes Safety Concerns: Feels Safe At This Time Assistive Devices: None Review of Systems Constitutional: + fever and + chills; no anorexia Eyes: no problem reported Ear, Nose, Mouth, Throat: no problem reported Respiratory: no dyspnea Cardiovascular: no chest pain Gastrointestinal: + nausea; no abdominal pain and no vomit ing Genitourinary: no dysuria Musculoskeletal: + swelling cellulitis Neurologic: no localized weakness and no generalized weakness Psychiatric: no behavioral changes Hematologic / Lymphatic: no easy bleeding and no easy bruising Physical Exam Constitutional: WD/WN, vitals as above Eyes: no scleral abnormality Neck: trachea midline Respiratory: normal respiratory effort Cardiovascular: Rate/Rhythm: regular rate and regular rhythm Gastrointestinal (Abdomen): Inspection/Auscultation: abdomen not distended Percussion/Palpation: abdomen soft Musculoskeletal: Head/Neck/Chest: normocephalic and head atraumatic Skin: no rashes, warm and dry Neurologic: R LE erythema with no fluctuance; no foul smell Results & Data Vital Signs (Past 12 Hours) Vital Signs Temp Pulse Pulse Resp BP BP Pulse Ox 03/04/25 11:08 36.8 C 73 17 113/68 97 03/04/25 07:43 36.8 C 77 18 106/69 98 03/04/25 05:39 83 03/04/25 03:49 36.9 C 71 20 97/61 L 95 O2 Del Method 03/04/25 11:08 Room Air 03/04/25 07:43 Room Air 03/04/25 05:39 03/04/25 03:49 Room Air Diagnostic Findings Clinical history: Cellulitis Technique: Axial computed tomography images were obtained of the right lower leg after the administration of intravenous contrast. Sagittal and coronal reconstructions were obtained Findings: No acute fracture is identified. There is a well corticated bone fragment adjacent to the tibial tuberosity that may be due to old injury. No subluxation or dislocation is seen. There are small osteophytes in all 3 compartments of the right knee. No focal osseous lesion is evident. There is a small bipartite accessory navicular bone. The visualized musculature appears unremarkable. There is mild diffuse subcutaneous edema. No definite soft tissue mass or focal fluid collection is seen. There is a small knee effusion. No foreign body is evident Impression: 1. Subcutaneous edema that may be due to cellulitis 2. No definite abscess or osteomyelitis 3. Small right knee effusion 4. Mild right knee osteoarthritis 5. Suspected old injury of the tibial tuberosity
--- NOTE | 2025-03-04 14:06 | Hospitalist Progress Note ---
Date of Service March 04, 2025 Assessment & Plan (1) Sepsis: (2) Headache: (3) Persistent fever: (4) Neck pain: (5) Acute pain of right lower extremity: (6) Abnormal urinalysis: (7) LORENA (acute kidney injury): Plan Patient is a 39-year-old female with past medical history significant for anxiety/depression, hypocalcemia, obesity of semaglutide for weight management, history of uterine rupture, history of acute blood loss anemia, history of incarcerated supraumbilical hernia s/p open repair in December 2024 and other problems listed below who presented to the ED with multiple complaints including RLE pain, ambulatory dysfunction secondary to RLE pain, persistent fevers and persistent headaches. #Severe Sepsis, resolving #Complicated Nonpurulent Cellulitis #Asymptomatic Bacteriuria -lumbar puncture performed with zero WBC present, protein and glucose not consistent with bacterial meningitis -viral meningitis possible but less likely given 0 WBC -patient has RLE erythema and very dirty urine consistent with 2 possible sources for sepsis -CTAP: hepatomegaly, moderate gallbladder distention w/ secondary sign of inflammation, b/l nonobstructing kidney stones -LFTs unremarkable (hepatomegaly) --> continue to monitor; poss fatty liver dz given body habitus -repeated CT imaging of leg shows improved mild soft tissue edema in RLE, no gas -worsening erythema and spread overnight -given worsening of cellulitis on broad spectrum abx, additional consideration must be given to alternative diagnoses or developing necrotizing infection Plan: -continue ceftriaxone, switch to vancomycin -communication order placed for RLE elevation -f/u culture results -surgery consulted for consideration of necrotizing infection, appreciate recs -ID consulted, appreciate recs -low threshold for CT RLE again given worsening erythema -check echo given bilateral 2+ nonpitting edema in legs #Right Thigh Sprain #Acute Nociceptive Pain -pain out of proportion to imaging findings -denies neuropathic component to pain -improved on current regiment Plan: -continue dilaudid 4mg q3hr prn -increase dilaudid to 1.5 mg for breakthrough pain -cyclobenzaprine, celoxib as recommended by ortho -continue lidocaine patches -PT/OT ordered -ortho consulted, appreciate recs #Headache -improved #LORENA -resolved #Anxiety/depression -Continue Lexapro #GERD -Continue Pepcid #Obesity -On semaglutide for weight control --> hold while inpt #Hyponatremia -stable #Hypokalemia -resolved I spent a total of 55 minutes in direct patient care, including [id number] time with the patient and/or family, reviewing medical records, ordering and reviewing diagnostic tests, and coordinating care with other healthcare providers. This time includes: history taking, physical examination, medical decision making, counseling, ECG interpretation, imaging interpretation, lab interpretation, orders, and education, excluding time spent in the performance of separately billed services. Admission and Anticipated Discharge Date Admission Date: March 01, 2025 Subjective Patient seen and examined at bedside. Patient RLE cellulitis is worsening at this time per patient, erythema worse along with pinpoint pain. Review of Systems Review of Systems: CONSTITUTIONAL: pain controlled EYES: Patient denies any visual symptoms. EARS, NOSE, AND THROAT: No difficulties with hearing. No symptoms of rhinitis or sore throat. CARDIOVASCULAR: Patient denies chest pains, palpitations, orthopnea and paroxysmal nocturnal dyspnea. RESPIRATORY: No dyspnea on exertion, no wheezing or cough. GI: No nausea, vomiting, diarrhea, constipation, abdominal pain, hematochezia or melena. : No urinary hesitancy or dribbling. No nocturia or urinary frequency. No abnormal urethral discharge. MUSCULOSKELETAL: No myalgias or arthralgias. RLE tenderness, pain, calf erythema NEUROLOGIC: No chronic headaches, no seizures. Patient denies numbness, tingling or weakness. PSYCHIATRIC: Patient denies problems with mood disturbance. No problems with anx iety. ENDOCRINE: No excessive urination or excessive thirst. DERMATOLOGIC: Patient denies any rashes or skin changes. Physical Exam Physical Exam: Gen: A&O 3 NAD HEENT: NCAT, EOMI, not icteric. External ears normal. No rhinorrhea. Moist mucous membranes. Neck: Supple, full range of motion, no observable masses, No meningeal sign. Lungs: No Respiratory distress. CV: RRR, no edema. Abdomen: Soft, nondistended, No rebound tenderness. MSK: No joint swelling, no redness. Skin: RLE erythema, eccymoses around right hamstring correlating with tear, tenderness to palpation. pain out of proportion to imaging and exam Neuro: Normal Gait, Grossly intact. Psych: Appropriate for situation. Results & Data Results & Data Vital Signs (Past 12 Hours) Vital Signs Temp Pulse Pulse Resp BP BP Pulse Ox 03/04/25 11:08 36.8 C 73 17 113/68 97 03/04/25 07:43 36.8 C 77 18 106/69 98 03/04/25 05:39 83 03/04/25 03:49 36.9 C 71 20 97/61 L 95 O2 Del Method 03/04/25 11:08 Room Air 03/04/25 07:43 Room Air 03/04/25 05:39 03/04/25 03:49 Room Air Laboratory Results -personally reviewed, uptrending leukocytosis, did have a fever last night Medications Administered Acetaminophen (Acetaminophen 500 Mg Tab) 1,000 mg PO Q8H [facility] Stop: 04/01/25 15:29 Last Admin: 03/04/25 08:11 Dose: 1,000 mg Documented By: Admin: 03/03/25 22:45 Dose: 1,000 mg Documented By: Admin: 03/03/25 15:40 Dose: 1,000 mg Documented By: Admin: 03/03/25 08:09 Dose: 1,000 mg Documented By: Admin: 03/03/25 00:37 Dose: 1,000 mg Documented By: Admin: 03/02/25 16:27 Dose: 1,000 mg Documented By: JAQUELINE Buspirone HCl (Buspirone 5 Mg Tab) 10 mg PO TID PRN PRN Reason: Anxiety Stop: 03/31/25 17:13 Last Admin: 03/04/25 11:15 Dose: 10 mg Documented By: Admin: 03/02/25 07:46 Dose: 10 mg Documented By: Admin: 03/01/25 19:34 Dose: 10 mg Documented By: ROMAN Celecoxib (Celecoxib 100 Mg Cap) 100 mg PO BID [facility] Stop: 04/02/25 20:59 Last Admin: 03/04/25 08:12 Dose: 100 mg Documented By: Admin: 03/03/25 19:33 Dose: 100 mg Documented By: MAE Cyclobenzaprine HCl (Cyclobenzaprine Hcl 10 Mg Tab) 10 mg PO BID [facility] Stop: 04/02/25 20:59 Last Admin: 03/04/25 08:11 Dose: 10 mg Documented By: Admin: 03/03/25 19:34 Dose: 10 mg Documented By: MAE Escitalopram Oxalate (Escitalopram Oxalate 20 Mg Tab) 20 mg PO DAILY [facility] Stop: 04/01/25 08:59 Last Admin: 03/04/25 08:12 Dose: 20 mg Documented By: Admin: 03/03/25 08:10 Dose: 20 mg Documented By: Admin: 03/02/25 07:46 Dose: 20 mg Documented By: GPF Famotidine (Famotidine 20 Mg Tab) 20 mg PO BID [facility] Stop: 03/31/25 20:59 Last Admin: 03/04/25 08:12 Dose: 20 mg Documented By: Admin: 03/03/25 19:43 Dose: 20 mg Documented By: Admin: 03/03/25 08:10 Dose: 20 mg Documented By: Admin: 03/02/25 19:44 Dose: 20 mg Documented By: Admin: 03/02/25 10:34 Dose: 20 mg Documented By: Admin: 03/01/25 21:52 Dose: 20 mg Documented By: ROMAN Hydromorphone HCl (Hydromorphone Hcl 2 Mg Tab) 4 mg PO Q3HWA PRN PRN Reason: Severe Pain (Scale 7, 8, 9,10) Stop: 03/17/25 10:03 Last Admin: 03/04/25 11:14 Dose: 4 mg Documented By: Admin: 03/03/25 22:42 Dose: 4 mg Documented By: Admin: 03/03/25 15:42 Dose: 4 mg Documented By: NEGRA Hydromorphone HCl (Hydromorphone Inj 0.5 Mg/0.5 Ml Syr) 1.5 mg IV Q3HWA PRN PRN Reason: Breakthrough Pain Stop: 03/16/25 15:24 Last Admin: 03/04/25 08:11 Dose: 1.5 mg Documented By: Admin: 03/03/25 11:24 Dose: 1.5 mg Documented By: NEGRA Piperacillin Sod/Tazobactam Sod (Zosyn) 4.5 gm in 100 mls @ 25 mls/hr IV Q8H [facility]; Protocol Stop: 03/10/25 10:29 Last Admin: 03/04/25 11:14 Dose: 25 mls/hr Documented By: Infusion: 03/04/25 08:19 Dose: Infused Documented By: Admin: 03/04/25 02:53 Dose: 25 mls/hr Documented By: Infusion: 03/03/25 22:16 Dose: Infused Documented By: Admin: 03/03/25 18:14 Dose: 25 mls/hr Documented By: Infusion: 03/03/25 15:58 Dose: Infused Documented By: Admin: 03/03/25 11:23 Dose: 25 mls/hr Documented By: NEGRA Vancomycin HCl 1,750 mg/ (Sodium Chloride) 535 mls @ 200 mls/hr IV Q12H [facility] Stop: 03/11/25 09:59 Last Admin: 03/04/25 12:18 Dose: 200 mls/hr Documented By: LEANNA Miscellaneous (Remove Lidoderm Patch) 1 each N/A DAILY@2100 [facility] Stop: 04/01/25 20:59 Last Admin: 03/03/25 19:36 Dose: Not Given Documented By: Admin: 03/02/25 19:45 Dose: 1 each Documented By: MAE Ondansetron HCl (Ondansetron Inj 2 Mg/Ml 2 Ml Vial) 4 mg IV Q6H PRN PRN Reason: Nausea Stop: 03/31/25 18:47 Last Admin: 03/03/25 15:39 Dose: 4 mg Documented By: Admin: 03/02/25 22:51 Dose: 4 mg Documented By: Admin: 03/02/25 03:26 Dose: 4 mg Documented By: Admin: 03/01/25 19:50 Dose: 4 mg Documented By: ROMAN (1) Sepsis Sepsis type: sepsis due to unspecified organism Sepsis acute organ dysfunction status: unspecified Qualified Code(s): A41.9 - Sepsis, unspecified organism (2) Headache Headache type: unspecified Headache chronicity pattern: unspecified pattern Intractability: intractable Qualified Code(s): R51.9 - Headache, unspecified
[2025-03-04] MEDS: OPTIRAY 320 100ml IV ONE (16:28)
--- NOTE | 2025-03-04 17:52 | CT Scan Report ---
CT RIGHT TIBIA FIBULA WITH CONTRAST: HISTORY: Pain TECHNIQUE: CT of the right tibia-fibula was obtained with intravenous contrast. Coronal and sagittal reformats were created. IV CONTRAST: 100 mL of OMNIPAQUE 300 COMPARISON: CTA right tibia-fibula 1 day previous. FINDINGS: No acute fracture is identified. 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 Mild tricompartmental osteoarthritic changes of the knee with tiny marginal osteophytes Redemonstration of diffuse subcutaneous edema with small quantity of layering fluid along the fascial planes. There is overlying skin thickening. Mild fascial enhancement is identified in the lower leg posteriorly (for example series 3, image 234). No soft tissues gas is identified. No organized/drainable fluid collection is identified. IMPRESSION: Redemonstration of extensive subcutaneous edema with skin thickening which may be seen with cellulitis and/or chronic venous stasis. No organized/drainable fluid collection is identified to suggest an abscess. Mild fascial enhancement is identified in the lower leg posteriorly which could suggest a mild fasciitis in this area. No soft tissues gas is identified. Necrotizing fasciitis remains a clinical diagnosis Electronically signed by Brando Roland 03-04-2025 5:52 PM
[2025-03-05 06:10] LABS: Hematocrit (blood only) 29.1 % (37.0-47.0); Hemoglobin 9.5 g/dl (12.0-16.0); Mean Corpuscular Hemoglobin 30.3 pg (25.0-34.0); Mean Corpuscular Volume 92.7 fL (80.0-100.0); Platelet Count 341 K/uL (130-400); RDW Standard Deviation 48.2 fL (36.4-46.3); Red Blood Count 3.14 M/uL (4.20-5.40); White Blood Count 24.77 K/ul (4.8-10.8)
[2025-03-05 06:21] LABS: Anion Gap 5.0 (3-11); Blood Urea Nitrogen 14.0 mg/dl (6-23); Calcium 8.9 mg/dl (8.6-10.3); Carbon Dioxide 29.0 mmol/L (21-32); Chloride 104.0 mmol/L (98-107); Creatinine Clr Calc Pharmacy 139.0 ml/min; Glucose 78.0 mg/dl (70-99(Fasting)); Potassium 3.8 mmol/L (3.5-5.1); Sodium 138.0 mmol/L (136-145)
[2025-03-05] MEDS: POLYETHYLENE (MIRALAX) 17 GM PACK PO PRN (08:35)
--- NOTE | 2025-03-05 08:51 | Surgery Progress Note ---
Date of Service March 05, 2025 Assessment & Plan (1) Cellulitis: Plan: Her white count is slightly improved at 25 today She has no signs of necrotizing soft tissue infection or drainable abscess on imaging Will continue her IV antibiotics, surgery will follow at this time, no indications for any drainage currently Admission and Anticipated Discharge Date Admission Date: March 01, 2025 Review of Systems Constitutional: no fever and no chills Eyes: no blind spots and no dry eyes Ear, Nose, Mouth, Throat: no ear pain and no hearing loss Respiratory: no cough and no dyspnea Cardiovascular: no chest pain and no dyspnea on exertion Gastrointestinal: no abdominal pain, no nausea, no vomiting, no constipation and no diarrhea/loose stools Genitourinary: no dysuria and no urinary urgency Musculoskeletal: no back pain and no neck pain Integumentary: + erythema; no acne and no new lesions Neurologic: no gait abnormality and no unsteadiness Psychiatric: no behavioral changes and no depression Hematologic / Lymphatic: no easy bleeding and no easy bruising Physical Exam Constitutional: WD/WN, vitals as above Eyes: PERRL, conjunctivae normal, anicteric sclerae ENMT: external ear and nose normal, oropharynx normal Neck: trachea midline, no thyromegaly Respiratory: normal respiratory effort, lungs clear to auscultation Cardiovascular: RRR, no murmur, no edema Gastrointestinal (Abdomen): normal bowel sounds, soft, nontender, no hepatosplenomegaly Musculoskeletal: no cyanosis or clubbing, extremities motor strength 5/5 Skin: no rashes, warm and dry Cellulitis of the right lateral thigh as well as the distal leg medially, tender to palpation, no appreciable abscess/fluctuance Neurologic: PERRL, EOMI, accommodation nl, no face palsy, no dysarthria Psychiatric: A+Ox3, euthymic affect Results & Data Vital Signs (Past 12 Hours) Vital Signs Temp Pulse Resp BP Pulse Ox O2 Del Method 03/05/25 07:51 37 C 80 16 125/80 98 Room Air PG Care Time/CCT Total # of Minutes Spent Total Time Spent with Patient: Total time spent is greater than 50% in coordination of care (as documented) at patient's floor/unit and/or counseling patient: Coding Level of Care Code 13162 SUB INP/OBS CARE 2/35MIN Diagnoses Cellulitis of right lower extremity L03.115 Site of cellulitis: extremity Site of cellulitis of extremity: lower extremity Laterality: right (1) Cellulitis Site of cellulitis: extremity Site of cellulitis of extremity: lower extremity Laterality: right Qualified Code(s): L03.115 - Cellulitis of right lower limb
--- NOTE | 2025-03-05 10:25 | Orthopedic Progress Note ---
Date of Service March 05, 2025 Assessment & Plan (1) Acute pain of right lower extremity: Plan: IMPRESSION: RLE pain secondarily to calf and hamstring strains, and cellulitis, increased pain may be associated with lumbar nerve irritation. No evidence of abscess or compartment syndrome. Continue conservative treatment. PLAN: Continue Abx.(Vancomycin and piperacillin) Patient states that the oral Celebrex and muscle relaxer have helped alleviate her pain significantly Pain control: continue with Tylenol, Dilaudid prn PT/OT RICE Continue care per Hospitalist service. Will continue to follow. Admission and Anticipated Discharge Date Admission Date: March 01, 2025 Supervising Physician Co-Signing Physician Notes I, Dr. Mcallister, saw and examined the patient with my PA present. I discussed the management with my PA. I reviewed my PAs note and agree with the documented findings and attest to completing the substantive portion of medical decision making and plan of care I developed. Subjective Celebrex & Flexeril make it so I can get up and go to the bathroom. Still RLE painful and cellulitis is spreading Review of Systems Review of Systems: All systems reviewed & are unremarkable except as noted in Subjective Physical Exam Physical Exam: Right lower extremity: Patient was able to detect light sensation to touch over the pads of all digits. Capillary fill is less than 2 seconds. Peripheral pulses are 1+. Patient was able to perform active straight leg raise test. She does have tenderness to palpation over the medial gastroc and the lateral gastroc. There is tenderness to palpation of the hamstring musculature with mild ecchymosis to the posterior lateral thigh distally. The marked area of cellulitis over the calf has receded slightly, but has expanded to the posterior and lateral thigh. Patient's calf and thigh are tender to palpation, but soft. She has pain with flexion of her knee at 90 degrees, but decreased from yesterday. She has no effusion. Straight leg raise test causes no discomfort. Results & Data Vital Signs (Past 12 Hours) Vital Signs Temp Pulse Resp BP Pulse Ox O2 Del Method 03/05/25 07:51 37 C 80 16 125/80 98 Room Air Diagnostic Findings Laboratory Results WBC 24.77 K/ul (4.8-10.8) H 03/05/25 05:45 RBC 3.14 M/uL (4.20-5.40) L 03/05/25 05:45 Hgb 9.5 g/dl (12.0-16.0) L 03/05/25 05:45 Hct 29.1 % (37.0-47.0) L 03/05/25 05:45 MCV 92.7 fL (80.0-100.0) 03/05/25 05:45 MCH 30.3 pg (25.0-34.0) 03/05/25 05:45 MCHC 32.6 g/dL (32.0-36.0) 03/05/25 05:45 RDW Std Deviation 48.2 fL (36.4-46.3) H 03/05/25 05:45 RDW Coeff of Tram 14.2 % (11.5-14.5) 03/05/25 05:45 Plt Count 341 K/uL (130-400) 03/05/25 05:45 MPV 9.7 fL (9.4-12.4) 03/05/25 05:45 Immature Gran % (Auto) 0.8 % 03/02/25 06:58 Neut % (Auto) 89.2 % 03/02/25 06:58 Lymph % (Auto) 2.9 % 03/02/25 06:58 [place] % (Auto) 6.7 % 03/02/25 06:58 Eos % (Auto) 0.2 % 03/02/25 06:58 Baso % (Auto) 0.2 % 03/02/25 06:58 Neut # (Auto) 16.70 K/uL (1.40-6.50) H 03/02/25 06:58 Lymph # (Auto) 0.55 K/uL (1.20-3.40) L 03/02/25 06:58 [place] # (Auto) 1.25 K/uL (0.11-0.59) H 03/02/25 06:58 Eos # (Auto) 0.04 K/uL (0.00-0.50) 03/02/25 06:58 Baso # (Auto) 0.04 K/uL (0.00-0.20) 03/02/25 06:58 Immature Gran # (Auto) 0.15 K/uL (0.01-0.20) 03/02/25 06:58 Toxic Vacuolation 1+ 03/02/25 06:58 Dohle Bodies 1+ 03/02/25 06:58 Polychromasia 1+ 03/01/25 13:40 Echinocytes 1+ 03/02/25 06:58 ESR > 130 mm/hr (0-20) H 03/04/25 07:59 Sodium 138 mmol/L (136-145) 03/05/25 05:45 Potassium 3.8 mmol/L (3.5-5.1) 03/05/25 05:45 Chloride 104 mmol/L (98-107) 03/05/25 05:45 Carbon Dioxide 29 mmol/L (21-32) 03/05/25 05:45 Anion Gap 5 (3-11) 03/05/25 05:45 BUN 14 mg/dl (6-23) 03/05/25 05:45 Creatinine 0.68 mg/dl (0.6-1.2) 03/05/25 05:45 Est Cr Clr Drug Dosing 139.0 ml/min 03/05/25 05:45 eGFR 113.54 03/05/25 05:45 BUN/Creatinine Ratio 20.6 (10-20) H 03/05/25 05:45 Glucose 78 mg/dl (70-99(Fasting)) 03/05/25 05:45 Estimat Average Glucose 111 mg/dl 03/02/25 06:58 Hemoglobin A1c 5.5 % (4.5-5.6) 03/02/25 06:58 Lactate 1.7 mmol/L (0.4-2.0) 03/04/25 07:59 Calcium 8.9 mg/dl (8.6-10.3) 03/05/25 05:45 Phosphorus 2.8 mg/dl (2.5-4.9) 03/02/25 06:58 Magnesium 1.7 mg/dl (1.7-2.4) 03/02/25 06:58 Total Bilirubin 0.7 mg/dl (0.2-1.0) 03/02/25 06:58 AST 13 U/L (13-39) 03/02/25 06:58 ALT 15 U/L (7-52) 03/02/25 06:58 Alkaline Phosphatase 78 U/L (34-104) 03/02/25 06:58 Total Creatine Kinase 34 U/L (26-192) 03/01/25 13:40 C-Reactive Protein 46.17 mg/dl (0-0.5) H 03/04/25 07:59 B-Natriuretic Peptide 327 pg/ml (0-100) H 03/04/25 07:59 Total Protein 6.5 gm/dl (6.0-8.3) 03/02/25 06:58 Albumin 3.2 gm/dl (3.4-5.0) L 03/02/25 06:58 Globulin 3.3 gm/dl (2.5-4.0) 03/02/25 06:58 Albumin/Globulin Ratio 1.0 (0.9-2) 03/02/25 06:58 Procalcitonin 4.94 ng/ml (0-0.5) H 03/01/25 13:40 Urine Color Dark Yellow 03/01/25 15:47 Urine Appearance Turbid (Clear) A 03/01/25 15:47 Urine pH 5.0 (4.5-7.5) 03/01/25 15:47 Ur Specific [place] 1.033 (1.000-1.030) H 03/01/25 15:47 Urine Protein 2+ (Negative) H 03/01/25 15:47 Urine Glucose (UA) Negative (Negative) 03/01/25 15:47 Urine Ketones Trace (Negative) H 03/01/25 15:47 Urine Blood 3+ (Negative) H 03/01/25 15:47 Urine Nitrite Negative (Negative) 03/01/25 15:47 Urine Bilirubin 2+ (Negative) H 03/01/25 15:47 Urine Urobilinogen Positive (Negative) H 03/01/25 15:47 Ur Leukocyte Esterase 1+ (Negative) H 03/01/25 15:47 Urine WBC (Auto) 6-10 /hpf (0-5) H 03/01/25 15:47 Urine RBC (Auto) >20 /hpf (0-2) H 03/01/25 15:47 U Hyaline Cast (Auto) >20 /lpf (0-2) H 03/01/25 15:47 U Epithel Cells (Auto) 11-20 /hpf (0-2) H 03/01/25 15:47 Urine Bacteria (Auto) 2+ (None Seen) H 03/01/25 15:47 Calcium Oxalate Crystal Present (None Prsent) A 03/01/25 15:47 Hyaline Casts Present /lpf (None Presnt) A 03/01/25 15:47 Granular Casts Present /lpf (None Prsent) A 03/01/25 15:47 Urine Comment 03/01/25 15:47 Fluid Comment 03/02/25 09:45 CSF Appearance Clear 03/02/25 09:45 CSF Color Colorless 03/02/25 09:45 Xanthrochromic No xanthochromia 03/02/25 09:45 CSF WBC 0 (0-5) 03/02/25 09:45 CSF RBC 87 (0) 03/02/25 09:45 CSF Cell Count Tube # 3 03/02/25 09:45 CSF Chemistry Tube # 1 03/02/25 09:45 CSF Chemistry Tube # Cancelled 03/02/25 09:45 CSF Glucose 78 mg/dl (40-70) H 03/02/25 09:45 CSF Glucose Cancelled 03/02/25 09:45 CSF Lactate 20.2 mg/dL (10-22) 03/02/25 09:45 CSF Total Protein 26.9 mg/dl (15-45) 03/02/25 09:45 CSF C.neoform/gat PCR Not Detected (NotDetected) 03/02/25 09:45 CSF CMV DNA (PCR) Not Detected (NotDetected) 03/02/25 09:45 CSF Enterovirus (PCR) Not Detected (NotDetected) 03/02/25 09:45 CSF E. coli K1 (PCR) Not Detected (NotDetected) 03/02/25 09:45 CSF H. influenzae (PCR) Not Detected (NotDetected) 03/02/25 09:45 CSF HSV I (PCR) Not Detected (NotDetected) 03/02/25 09:45 CSF HSV II (PCR) Not Detected (NotDetected) 03/02/25 09:45 CSF HHV 6 (PCR) Not Detected (NotDetected) 03/02/25 09:45 CSF L.monocytogenes PCR Not Detected (NotDetected) 03/02/25 09:45 CSF N. meningitidis PCR Not Detected (NotDetected) 03/02/25 09:45 CSF Parechovirus (PCR) Not Detected (NotDetected) 03/02/25 09:45 CSF S. agalactiae (PCR) Not Detected (NotDetected) 03/02/25 09:45 CSF S. pneumoniae (PCR) Not Detected (NotDetected) 03/02/25 09:45 CSF VZV DNA (PCR) Not Detected (NotDetected) 03/02/25 09:45 Nasal Screen MRSA (PCR) Negative (Negative) 03/04/25 Unknown Adenovirus (PCR) Not Detected (NotDetected) 03/01/25 13:48 B. pertussis DNA (PCR) Not Detected (NotDetected) 03/01/25 13:48 B.parapertussis DNA PCR Not Detected (NotDetected) 03/01/25 13:48 Lyme Disease Screen Negative (Negative) 03/01/25 13:40 C. pneumoniae DNA (PCR) Not Detected (NotDetected) 03/01/25 13:48 Coronavirus OC43 (PCR) Not Detected (NotDetected) 03/01/25 13:48 Coronavirus HKU1 (PCR) Not Detected (NotDetected) 03/01/25 13:48 Coronavirus 229E (PCR) Not Detected (NotDetected) 03/01/25 13:48 SARS-CoV-2 (PCR) Not Detected (NotDetected) 03/01/25 13:48 Coronavirus NL63 (PCR) Not Detected (NotDetected) 03/01/25 13:48 Monoscreen Negative (Negative) 03/01/25 13:40 Human Metapneumovir PCR Not Detected (NotDetected) 03/01/25 13:48 Influenza Type A (PCR) Not Detected (NotDetected) 03/01/25 13:48 Influenza Type B (PCR) Not Detected (NotDetected) 03/01/25 13:48 M. pneumoniae (PCR) Not Detected (NotDetected) 03/01/25 13:48 Parainfluenza 1 (PCR) Not Detected (NotDetected) 03/01/25 13:48 Parainfluenza 2 (PCR) Not Detected (NotDetected) 03/01/25 13:48 Parainfluenza 3 (PCR) Not Detected (NotDetected) 03/01/25 13:48 Parainfluenza 4 (PCR) Not Detected (NotDetected) 03/01/25 13:48 RSV (PCR) Not Detected (NotDetected) 03/01/25 13:48 Entero/Rhino (PCR) Not Detected (NotDetected) 03/01/25 13:48 Impressions Cervical Spine X-Ray 03/01/25 13:37 XR cervical spine 2 or 3V CLINICAL HISTORY: neck pain, stiffness COMPARISON STUDY: None FINDINGS: There are mild degenerative findings at C5-6. No fracture or subluxation. Prevertebral soft tissues have normal thickness. IMPRESSION: C5-6 degenerative changes. ACT 112: Negative or not required by law. Electronically signed by: Cheng Briseno M.D. 03/01/2025 2:[address] 03/01/25 13:37 CT SCAN OF THE BRAIN WITHOUT IV CONTRAST CLINICAL HISTORY: Headache COMPARISON STUDY: Facial bone CT dated 05/23/2012 TECHNIQUE: Unenhanced axial CT scan of the brain is performed from the vertex to the skull base. Images are reviewed in the axial, sagittal, and coronal planes. A dose lowering technique was utilized adhering to the principles of ALARA. CT DOSE: 547.75 mGy.cm FINDINGS: Brain parenchyma: The brain parenchyma is normal in appearance. There is no hemorrhage, mass effect, or evidence of acute territorial ischemia by CT crit eria. Fu-white matter differentiation is preserved. No extra-axial fluid collection is seen. There is cerebellar tonsillar ectopia consistent with a Chiari I malformation. Ventricles, sulci, cisterns: Normal in configuration. Intracranial vasculature: The visualized intracranial vasculature at the skull base is normal in appearance. Calvarium: Unremarkable. Sinuses and mastoids: The visualized paranasal sinuses are clear. The mastoid air cells are well pneumatized. Orbits: The bony orbits are grossly intact. IMPRESSION: 1. No acute intracranial abnormality. 2. 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 ACT 112: Negative or not required by law. Electronically signed by: Nick Hdez M.D. 03/01/2025 3:08 PM Abdomen/Pelvis CT 03/01/25 13:[address] WITH IV CONTRAST CT DOSE: 1348.18 mGy.cm HISTORY: blood in urine, white count TECHNIQUE: Multiaxial CT images of the abdomen and pelvis were performed f ollowing the IV administration of 90 cc of Optiray, A dose lowering technique was utilized adhering to the principles of ALARA. COMPARISON STUDY: 12/26/2024 FINDINGS: Since the prior examination, there are ventral hernias have been repaired and there is a ventral scar from the prior surgery. Several small bowel loops appear to be tethered to the surgical site along the peritoneal surface anteriorly. There is no evidence of obstruction. There is no free air in the abdomen. The liver remains enlarged. The gallbladder is moderately distended. There are no gallstones identified. The pancreas and adrenal glands and spleen are unremarkable. The kidneys demonstrate bilateral nonobstructive stones as before. There is no bowel obstruction or free air as previously stated. There is no aort ic aneurysm or periaortic adenopathy. In the pelvis, the appendix is not identified. The urinary bladder is empty and cannot be evaluated. The uterus is absent. IMPRESSION: Hepatomegaly with no focal liver lesions identified. The liver has increased in size from 19 to 22 cm since the prior examination. Moderate gallbladder distention with no secondary signs of inflammation. Postsurgical repair of ventral hernias with probable adhesions tethering the small bowel loops against the anterior peritoneal surface. No obstruction or free air. Bilateral, nonobstructive2 nephrolithiasis redemonstrated. ACT 112: Negative or not required by law. The above report was generated using voice recognition software. It may contain grammatical, syntax or spelling errors. Electronically signed by: Kasey Delong M.D. 03/01/2025 3:16 PM Chest X-Ray 03/01/25 14:40 XR chest 1V portable CLINICAL HISTORY: FEVER COMPARISON STUDY: None FINDINGS: Single view portable chest demonstrates no acute cardiopulmonary process. Is no airspace opacity or pleural effusion. The heart and pulmonary vascularity are normal for technique. IMPRESSION: Negative portable chest ACT 112: Negative or not required by law. Electronically signed by: Kasey Delong M.D. 03/01/2025 2:51 PM Femur MRI 03/02/25 00:18 EXAM: MR femur RT wo/w con CLINICAL HISTORY: Severe right leg pain TECHNIQUE: Multiplanar, multiecho MRI of the right femur was performed without and with 11ml Gadavist the administration of intravenous contrast. Images were sent through PACs for diagnostic interpretation. COMPARISON: None. FINDINGS: Bones: Normal alignment of the femur. No fractures or dislocations. No lytic or sclerotic lesions. No bone marrow edema or contusions. Normal enhancement post-contrast. Muscles: The hamstring muscle group appears swollen with an intermuscular fluid collection extending between: Anteriorly: the short head of the biceps femoris and adductor muscles. Posteriorly: the long head of the biceps femoris, semitendinosus, and semimembranosus muscles. This collection shows fluid signal intensity on T2-weighted images and demonstrates smooth marginal post-contrast enhancement. Maximum thickness measures approximately 21 mm. Muscle Signal Abnormality: Abnormal high T2 signal intensity is noted within the distal adductor muscles, indicating muscle strain or injury. No muscle tear seen. No intramuscular fluid collections identified. Marked subcutaneous edema is seen along the lateral aspect of the lower thigh. Small cysts are noted just posterior to the distal femoral metaphysis, likely reactive. Tendons and Ligaments: The examined conjoined tendon appears intact. Intact and normal appearance of the major tendons and ligaments in thigh. No evidence of tendinopathy, tendon tears, or ligamentous injury. Normal enhancement post-contrast. Neurovascular Structures: Normal appearance of the visualized neurovascular structures. No evidence of compression or abnormal signal changes. Mild knee osteoarthritic changes noted. Few reactive inguinal lymph nodes seen. IMPRESSION: 1. Intermuscular fluid collection tracking between the hamstring muscle groups with edema of the hamstring muscles and intermuscular hematoma, suggestive of grade 2 strain. 2. High T2 signal intensity within the distal adductor muscles; consistent with grade 1 muscular strain. 3. Marked subcutaneous edema over the lateral lower thigh, post-traumatic. 4. No evidence of bone marrow contusion, fracture, or neoplastic lesions. Electronically signed by Jason Buchanan 03-02-2025 04:12 AM Lumbar Spine MRI 03/02/25 00:18 EXAM: MR lumbar spine wo/w con CLINICAL HISTORY: Severe right leg pain TECHNIQUE: MRI of the lumbar spine was performed without and with the of 11ml Gadavist administration of intravenous contrast, acquiring multiple sequences COMPARISON: No previous studies are available for comparison. FINDINGS: Vertebral Alignment: Normal alignment of the lumbar spine without evidence of fracture or malalignment. No evidence of scoliosis is observed. Marrow signals are normal. Vertebral Bodies and Intervertebral Discs: Normal vertebral body height, no fracture identified. No lytic or sclerotic lesions. Normal bone marrow signal intensity. Diffuse spondylosis of the lumbar spine denoted by minute marginal osteophytes, Modic changes type II of the opposing vertebral end plates of L1-2, tiny schmorl`s node along lower vertebral end plate of L4. Hypertrophy of the facet joints noted. Degenerated L1-2, L3-4, and L4-5 discs showing decreased T2 signal and height. Kvkio-ge-eohop analysis: T12-L1: There is no significant disc pathology. No spinal canal stenosis. No neural foraminal stenosis. No ligamentum flavum hypertrophy and facet joint arthropathy. L1-L2: There is 2.5 mm central focal protrusion of the disc, effacing the anterior epidural fat, indenting the dural sac. No nerve root compression. No spinal canal stenosis. No neural foraminal stenosis. L2-L3: There is no significant disc pathology. No spinal canal stenosis. No neural foraminal stenosis. No ligamentum flavum hypertrophy and facet joint arthropathy. L3-L4: There is 3.5 mm asymmetrical diffuse bulging of the disc, inclined more to the left side, effacing the anterior epidural fat, compressing the dural sac and both L4 nerve roots. The disc abutting both L3 nerve roots in the both neural foramina. There is mild spinal canal and neural foraminal stenosis. L4-L5: There is 3.5 mm central focal protrusion of the disc with annulus fibrosis tear, effacing the anterior epidural fat, compressing the dural sac and both L5 nerve roots. Mild spinal canal stenosis noted. No neural foraminal stenosis. L5-S1: There is 5.5 mm left foraminal-far lateral focal protrusion of the disc, compressing the left L5 nerve root in the neural foramen. There is moderate stenosis of the left neural foramen. No spinal canal stenosis. No right neural foraminal stenosis. Spinal Cord and Nerve Roots: Conus medullaris terminates at the L1 level without abnormality. The lower thoracic spinal cord, conus medullaris, and cauda equina nerve roots are unremarkable. Soft Tissues: Paraspinal soft tissues appear normal without evidence of abnormal signal intensity or mass lesions. Minimal soft tissue edematous changes along subcutaneous tissue of the lower back. No abnormal post-contrast enhancement. IMPRESSION: 1. Mild spondylosis of the lumbar spine with multilevel disc pathologies with no significant spinal canal stenosis as detailed above. 2. L1-L2: 2.5 mm central focal protrusion of the disc. 3. L3-L4: 3.5 mm asymmetrical diffuse bulging of the disc, inclined more to the left side, compressing both L4 nerve roots, abutting both L3 nerve root in both neural foramina. Mild spinal canal and neural foraminal stenosis. 4. L4-L5: 3.5 mm central focal protrusion of the disc with annulus fibrosis tear, compressing the dural sac and both L5 nerve roots. Mild spinal canal stenosis. 5. L5-S1: 5.5 mm left foraminal-far lateral focal protrusion of the disc, compressing the left L5 nerve root in the neural foramen. Moderate stenosis of the left neural foramen. Electronically signed by Jason Buchanan 03-02-2025 03:58 AM Lower Extremity MRI 03/02/25 00:19 EXAM: MR lower leg RT wo/w con CLINICAL HISTORY: Severe right leg pain. TECHNIQUE: Multiplanar, multiecho MRI of the right tibia and fibula was performed without and with the administration of 11cc gadavist intravenous contrast. Images were sent through PACs for diagnostic interpretation. COMPARISON: None. FINDINGS: Bones: Normal alignment of the tibia and fibula. No fractures or dislocations. No lytic or sclerotic lesions. No bone marrow edema or contusions. Normal enhancement post-contrast. Joints: Knee osteoarthritic changes with narrowed knee compartments and peripheral osteophytic lipppings. Articular surfaces are smooth without erosions. Normal enhancement post-contrast. Muscles: There is mild edema of the lateral head of the gastrocnemius muscle. There is prominent edema of the medial head of the gastrocnemius muscle. There is focal collection at the distal gastrocnemius mascle with irregularity and distruption of the muscle fascia on the distal segment. These findings are suggestive of grade 2 strain. Tendons and Ligaments: Intact and normal appearance of the major tendons and ligaments around the tibia and fibula. No evidence of tendinopathy, tendon tears, or ligamentous injury. Normal enhancement post-contrast. Neurovascular Structures: Normal appearance of the visualized neurovascular structures. No evidence of compression or abnormal signal changes. Soft Tissues: Posterior subcutaneous soft tissue edema is noted. Smooth marginal enhancement of the subfascial collection noted. IMPRESSION: 1. Grade 2 strain of the medial head of the gastrocnemius muscle. 2. Grade 1 strain of the lateral head of the gastrocnemius muscle. 3. Posterior subcutaneous soft tissue edema 4. Knee osteoarthritic changes with joint space narrowing and peripheral osteophytes. Electronically signed by Jason Buchanan 03-02-2025 04:20 AM Lumbar Puncture 03/02/25 11:00 IR lumbar puncture diagnostic CLINICAL HISTORY: AGUILLON/fevers/neck pain, r/o meningitis. PROCEDURE: The risks, benefits, and alternatives to the procedure is discussed with the patient who voiced understanding. Written informed consent was obtaine d. The patient was placed prone on the fluoroscopy table. The lower back was prepped and draped in the usual sterile fashion. 1% lidocaine was used for local anesthesia. A 22-gauge spinal needle was inserted into the L4-5 interlaminar space, and approximately 8 cc of clear colorless cerebrospinal fluid was removed. The patient tolerated the procedure well. There were no immediate complications. The patient was then transported to the medical treatment unit for further observation. Fluoroscopy time: 5 seconds Fluoroscopy images: 2 Ka,r: 6 mGy IMPRESSION: Fluoroscopic guided lumbar puncture with removal of approximately 8 cc of cerebrospinal fluid. There were no immediate complications. ACT 112: Negative or not required by law. The above report was generated using voice recognition software. It may contain grammatical, syntax or spelling errors. Electronically signed by: Cheng Briseno M.D. 03/02/2025 3:08 PM Venous Doppler Study 03/04/25 01:12 EXAM: US venous doppler LE BI CLINICAL HISTORY: Right leg worsening erythema. Dvt? TECHNIQUE: Ultrasound examination of bilateral lower extremity veins was performed in real time and duplex. One or more of the following were performed- spectral analysis, resistive index, waveform analysis, and pulsed Doppler. COMPARISON: 03/01/2025, Ultrasound right. FINDINGS: Right posterior tibial and peroneal veins are not visualized on images, due to swelling Normal phasic, non-pulsatile and spontaneous flow is noted in visualized bilateral visualized greater saphenous, common femoral, superficial femoral, popliteal, anterior tibial, left posterior tibial and left peroneal veins. Visualized veins of both lower extremities demonstrate normal compressibility. No sonographic evidence of acute deep vein thrombosis (DVT) is detected in the visualized veins of both lower extremities. Compression and Augmentation: All evaluated veins compress fully with applied transducer pressure. Augmentation of venous flow is noted with distal compression. Additional Findings: No evidence of intraluminal thrombus. Soft tissue edema is identified in both lower limbs, relatively greater on the right side IMPRESSION: 1. Right posterior tibial and peroneal veins are not visualized due to swelling. 2. No sonographic evidence of acute DVT was detected in the bilateral common femoral, superficial femoral, popliteal, anterior tibial, left posterior tibial and left peroneal veins, at the time of examination. 3. Soft tissue edema is identified in both lower limbs, relatively greater on the right side. Relatively greater soft tissue edema in the right lower limb in current examination. Disclaimer: DVT could be missed early in the disease when clot burden is minimal. For patients with moderate and high pretest probability of DVT and negative ultrasound, the [employer] [place] [employer] clinical guidelines recommend testing with a D-dimer assay or repeat ultrasound in 5-7 days. If symptoms worsen, the Society of radiologists in ultrasound recommends repeating ultrasound even earlier. Electronically signed by Jason Buchanan 03-04-2025 03:[address] 03/04/25 15:05 CT RIGHT TIBIA FIBULA WITH CONTRAST: HISTORY: Pain TECHNIQUE: CT of the right tibia-fibula was obtained with intravenous contrast. Coronal and sagittal reformats were created. IV CONTRAST: 100 mL of OMNIPAQUE 300 COMPARISON: CTA right tibia-fibula 1 day previous. FINDINGS: No acute fracture is identified. Redemonstrated well-corticated osseous body by the tibial tuberosity, likely reflecting sequela of old jumpers knee injury/Karen-Schlatter's. Mild tricompartmental osteoarthritic changes of the knee with tiny marginal osteophytes Redemonstration of diffuse subcutaneous edema with small quantity of layering fluid along the fascial planes. There is overlying skin thickening. Mild fascial enhancement is identified in the lower leg posteriorly (for example series 3, image 234). No soft tissues gas is identified. No organized/drainable fluid collection is identified. IMPRESSION: Redemonstration of extensive subcutaneous edema with skin thickening which may be seen with cellulitis and/or chronic venous stasis. No organized/drainable fluid collection is identified to suggest an abscess. Mild fascial enhancement is identified in the lower leg posteriorly which could suggest a mild fasciitis in this area. No soft tissues gas is identified. Necrotizing fasciitis remains a clinical diagnosis Electronically signed by Brando Roland 03-04-2025 5:52 PM
--- NOTE | 2025-03-05 14:16 | Hospitalist Progress Note ---
Date of Service March 05, 2025 Assessment & Plan (1) Sepsis: (2) Headache: (3) Persistent fever: (4) Neck pain: (5) Acute pain of right lower extremity: (6) Abnormal urinalysis: (7) LORENA (acute kidney injury): Plan Patient is a 39-year-old female with past medical history significant for anxiety/depression, hypocalcemia, obesity of semaglutide for weight management, history of uterine rupture, history of acute blood loss anemia, history of incarcerated supraumbilical hernia s/p open repair in December 2024 and other problems listed below who presented to the ED with multiple complaints including RLE pain, ambulatory dysfunction secondary to RLE pain, persistent fevers and persistent headaches. #Severe Sepsis, resolved #Complicated Nonpurulent Cellulitis #Asymptomatic Bacteriuria -lumbar puncture performed with zero WBC present, protein and glucose not consistent with bacterial meningitis -viral meningitis possible but less likely given 0 WBC -patient has RLE erythema and very dirty urine consistent with 2 possible sources for sepsis -CTAP: hepatomegaly, moderate gallbladder distention w/ secondary sign of inflammation, b/l nonobstructing kidney stones -LFTs unremarkable (hepatomegaly) --> continue to monitor; poss fatty liver dz given body habitus -repeated CT imaging of leg shows improved mild soft tissue edema in RLE, no gas -CT imaging, exam not suggestive of necrotizing infection at this time Plan: -continue zosyn, vancomycin (day 4/7) -communication order placed for RLE elevation -f/u culture results -surgery consulted for consideration of necrotizing infection, appreciate recs -ID consulted, appreciate recs #Right Thigh Sprain #Acute Nociceptive Pain -pain out of proportion to imaging findings -denies neuropathic component to pain -improved on current regiment Plan: -continue dilaudid 4mg q3hr prn -stop IV dilaudid -cyclobenzaprine, celoxib as recommended by ortho -continue lidocaine patches -PT/OT ordered -ortho consulted, appreciate recs #Headache -improved #LORENA -resolved #Anxiety/depression -Continue Lexapro #GERD -Continue Pepcid #Obesity -On semaglutide for weight control --> hold while inpt #Hyponatremia -stable #Hypokalemia -resolved I spent a total of 45 minutes in direct patient care, including [id number] time with the patient and/or family, reviewing medical records, ordering and reviewing diagnostic tests, and coordinating care with other healthcare providers. This time includes: history taking, physical examination, medical decision making, counseling, ECG interpretation, imaging interpretation, lab interpretation, orders, and education, excluding time spent in the performance of separately billed services. Admission and Anticipated Discharge Date Admission Date: March 01, 2025 Subjective Patient seen and examined at bedside. Patient doing ok today. States that her pain is relatively well controlled on current regiment. Does feel a bit better than yesterday. Review of Systems Review of Systems: CONSTITUTIONAL: pain controlled EYES: Patient denies any visual symptoms. EARS, NOSE, AND THROAT: No difficulties with hearing. No symptoms of rhinitis or sore throat. CARDIOVASCULAR: Patient denies chest pains, palpitations, orthopnea and paroxysmal nocturnal dyspnea. RESPIRATORY: No dyspnea on exertion, no wheezing or cough. GI: No nausea, vomiting, diarrhea, constipation, abdominal pain, hematochezia or melena. : No urinary hesitancy or dribbling. No nocturia or urinary frequency. No abnormal urethral discharge. MUSCULOSKELETAL: No myalgias or arthralgias. RLE tenderness, pain, calf erythema NEUROLOGIC: No chronic headaches, no seizures. Patient denies numbness, tingling or weakness. PSYCHIATRIC: Patient denies problems with mood disturbance. No problems with anxiety. ENDOCRINE: No excessive urination or excessive thirst. DERMATOLOGIC: rash on right thigh, right calf, similar to yesterday Physical Exam Physical Exam: Gen: A&O 3 NAD HEENT: NCAT, EOMI, not icteric. External ears normal. No rhinorrhea. Moist mucous membranes. Neck: Supple, full range of motion, no observable masses, No meningeal sign. Lungs: No Respiratory distress. CV: RRR, no edema. Abdomen: Soft, nondistended, No rebound tenderness. MSK: No joint swelling, no redness. Skin: RLE erythema, eccymoses around right hamstring correlating with tear, tenderness to palpation. Neuro: Normal Gait, Grossly intact. Psych: Appropriate for situation. Results & Data Results & Data Vital Signs (Past 12 Hours) Vital Signs Temp Pulse Resp BP Pulse Ox O2 Del Method 03/05/25 12:57 36.5 C 75 15 106/59 L 97 Room Air 03/05/25 07:51 37 C 80 16 125/80 98 Room Air Laboratory Results -personally reviewed, WBC 25 and downtrending, creatinine at baseline Medications Administered Acetaminophen (Acetaminophen 500 Mg Tab) 1,000 mg PO Q8H PAWAN Stop: 04/01/25 15:29 Last Admin: 03/05/25 08:35 Dose: 1,000 mg Documented By: Admin: 03/04/25 23:06 Dose: 1,000 mg Documented By: Admin: 03/04/25 16:53 Dose: 1,000 mg Documented By: Admin: 03/04/25 08:11 Dose: 1,000 mg Documented By: Admin: 03/03/25 22:45 Dose: 1,000 mg Documented By: Admin: 03/03/25 15:40 Dose: 1,000 mg Documented By: Admin: 03/03/25 08:09 Dose: 1,000 mg Documented By: Admin: 03/03/25 00:37 Dose: 1,000 mg Documented By: Admin: 03/02/25 16:27 Dose: 1,000 mg Documented By: GPF Buspirone HCl (Buspirone 5 Mg Tab) 10 mg PO TID PRN PRN Reason: Anxiety Stop: 03/31/25 17:13 Last Admin: 03/05/25 08:36 Dose: 10 mg Documented By: Admin: 03/04/25 20:19 Dose: 10 mg Documented By: Admin: 03/04/25 11:15 Dose: 10 mg Documented By: Admin: 03/02/25 07:46 Dose: 10 mg Documented By: Admin: 03/01/25 19:34 Dose: 10 mg Documented By: ROMAN Celecoxib (Celecoxib 100 Mg Cap) 100 mg PO BID PAWAN Stop: 04/02/25 20:59 Last Admin: 03/05/25 08:36 Dose: 100 mg Documented By: Admin: 03/04/25 20:17 Dose: 100 mg Documented By: Admin: 03/04/25 08:12 Dose: 100 mg Documented By: Admin: 03/03/25 19:33 Dose: 100 mg Documented By: MAE Cyclobenzaprine HCl (Cyclobenzaprine Hcl 10 Mg Tab) 10 mg PO BID PAWAN Stop: 04/02/25 20:59 Last Admin: 03/05/25 08:35 Dose: 10 mg Documented By: Admin: 03/04/25 20:18 Dose: 10 mg Documented By: Admin: 03/04/25 08:11 Dose: 10 mg Documented By: Admin: 03/03/25 19:34 Dose: 10 mg Documented By: MAE Escitalopram Oxalate (Escitalopram Oxalate 20 Mg Tab) 20 mg PO DAILY PAWAN Stop: 04/01/25 08:59 Last Admin: 03/05/25 08:36 Dose: 20 mg Documented By: Admin: 03/04/25 08:12 Dose: 20 mg Documented By: Admin: 03/03/25 08:10 Dose: 20 mg Documented By: Admin: 03/02/25 07:46 Dose: 20 mg Documented By: GPF Famotidine (Famotidine 20 Mg Tab) 20 mg PO BID [facility] Stop: 03/31/25 20:59 Last Admin: 03/05/25 08:35 Dose: 20 mg Documented By: Admin: 03/04/25 20:18 Dose: 20 mg Documented By: Admin: 03/04/25 08:12 Dose: 20 mg Documented By: Admin: 03/03/25 19:43 Dose: 20 mg Documented By: Admin: 03/03/25 08:10 Dose: 20 mg Documented By: Admin: 03/02/25 19:44 Dose: 20 mg Documented By: Admin: 03/02/25 10:34 Dose: 20 mg Documented By: Admin: 03/01/25 21:52 Dose: 20 mg Documented By: SJM Hydromorphone HCl (Hydromorphone Hcl 2 Mg Tab) 4 mg PO Q3HWA PRN PRN Reason: Severe Pain (Scale 7, 8, 9,10) Stop: 03/17/25 10:03 Last Admin: 03/05/25 10:16 Dose: 4 mg Documented By: Admin: 03/04/25 20:18 Dose: 4 mg Documented By: Admin: 03/04/25 11:14 Dose: 4 mg Documented By: Admin: 03/03/25 22:42 Dose: 4 mg Documented By: Admin: 03/03/25 15:42 Dose: 4 mg Documented By: NEGRA Piperacillin Sod/Tazobactam Sod (Zosyn) 4.5 gm in 100 mls @ 25 mls/hr IV Q8H PAWAN; Protocol Stop: 03/10/25 10:29 Last Admin: 03/05/25 10:03 Dose: 25 mls/hr Documented By: Infusion: 03/05/25 06:02 Dose: Infused Documented By: Admin: 03/05/25 02:02 Dose: 25 mls/hr Documented By: Infusion: 03/04/25 22:23 Dose: Infused Documented By: Admin: 03/04/25 18:15 Dose: 25 mls/hr Documented By: Infusion: 03/04/25 16:48 Dose: Infused Documented By: Admin: 03/04/25 11:14 Dose: 25 mls/hr Documented By: Infusion: 03/04/25 08:19 Dose: Infused Documented By: Admin: 03/04/25 02:53 Dose: 25 mls/hr Documented By: Infusion: 03/03/25 22:16 Dose: Infused Documented By: Admin: 03/03/25 18:14 Dose: 25 mls/hr Documented By: Infusion: 03/03/25 15:58 Dose: Infused Documented By: Admin: 03/03/25 11:23 Dose: 25 mls/hr Documented By: AMS Vancomycin HCl 1,750 mg/ (Sodium Chloride) 535 mls @ 200 mls/hr IV Q12H PAWAN Stop: 03/11/25 09:59 Last Admin: 03/05/25 10:38 Dose: 200 mls/hr Documented By: Infusion: 03/05/25 02:02 Dose: Infused Documented By: Admin: 03/04/25 22:55 Dose: 200 mls/hr Documented By: Infusion: 03/04/25 16:48 Dose: Infused Documented By: Admin: 03/04/25 12:18 Dose: 200 mls/hr Documented By: LEANNA Miscellaneous (Remove Lidoderm Patch) 1 each N/A DAILY@2100 PAWAN Stop: 04/01/25 20:59 Last Admin: 03/04/25 20:18 Dose: Not Given Documented By: Admin: 03/03/25 19:36 Dose: Not Given Documented By: Admin: 03/02/25 19:45 Dose: 1 each Documented By: MAE Ondansetron HCl (Ondansetron Inj 2 Mg/Ml 2 Ml Vial) 4 mg IV Q6H PRN PRN Reason: Nausea Stop: 03/31/25 18:47 Last Admin: 03/04/25 22:33 Dose: 4 mg Documented By: Admin: 03/03/25 15:39 Dose: 4 mg Documented By: Admin: 03/02/25 22:51 Dose: 4 mg Documented By: Admin: 03/02/25 03:26 Dose: 4 mg Documented By: Admin: 03/01/25 19:50 Dose: 4 mg Documented By: ROMAN Polyethylene Glycol (Polyethylene (Miralax) 17 Gm Pack) 17 gm PO DAILY PRN PRN Reason: Constipation Stop: 03/31/25 18:47 Last Admin: 03/05/25 08:35 Dose: 17 gm Documented By: LYNDSAY (1) Sepsis Sepsis type: sepsis due to unspecified organism Sepsis acute organ dysfunction status: unspecified Qualified Code(s): A41.9 - Sepsis, unspecified organism (2) Headache Headache type: unspecified Headache chronicity pattern: unspecified pattern Intractability: intractable Qualified Code(s): R51.9 - Headache, unspecified
[2025-03-05 17:19] LABS: West Nile Virus, PCR Source CSF; West Nile Virus, PCR, CSF NOT DETECTED (NOT DETECTED)
[2025-03-06] MEDS: SODIUM CHLORIDE 0.9% 500 ML IV ONE (02:50)
[2025-03-06 05:35] LABS: Hematocrit (blood only) 32.5 % (37.0-47.0); Hemoglobin 10.4 g/dl (12.0-16.0); Mean Corpuscular Hemoglobin 30.1 pg (25.0-34.0); Mean Corpuscular Volume 94.2 fL (80.0-100.0); Platelet Count 387 K/uL (130-400); RDW Standard Deviation 49.4 fL (36.4-46.3); Red Blood Count 3.45 M/uL (4.20-5.40); White Blood Count 24.00 K/ul (4.8-10.8)
[2025-03-06 05:53] LABS: Anion Gap 6.0 (3-11); Blood Urea Nitrogen 12.0 mg/dl (6-23); Calcium 8.7 mg/dl (8.6-10.3); Carbon Dioxide 28.0 mmol/L (21-32); Chloride 102.0 mmol/L (98-107); Creatinine Clr Calc Pharmacy 157.6 ml/min; Glucose 85.0 mg/dl (70-99(Fasting)); Potassium 3.9 mmol/L (3.5-5.1); Sodium 136.0 mmol/L (136-145)
[2025-03-06 07:17] VITALS: BP 106/69; PULSE 94; RESP 17; TEMP 99.5; O2SAT 96
[2025-03-06] MEDS: VANCOMYCIN HCL 1,250 MG in SODIUM CHLORIDE 0.9% 250 ML IV SCH (07:57)
--- NOTE | 2025-03-06 08:50 | Surgery Progress Note ---
Date of Service March 06, 2025 Assessment & Plan (1) Cellulitis: Plan: She remained stable hemodynamically although her white count still remains elevated at 24 She has no signs of necrotizing soft tissue infection or drainable abscess on imaging Will continue her current treatment course with IV antibiotics If she were to develop signs of fasciitis on imaging, due to the location on the right lower extremity as well as the extensiveness of her cellulitis would recommend orthopedics for incision and drainage versus transfer to a tertiary care center Will continue to follow Admission and Anticipated Discharge Date Admission Date: March 01, 2025 Subjective Patient seen and examined. Pain still present in the right lower extremity. Afebrile. Review of Systems Constitutional: no fever and no chills Eyes: no blind spots and no dry eyes Ear, Nose, Mouth, Throat: no ear pain and no hearing loss Respiratory: no cough and no dyspnea Cardiovascular: no chest pain and no dyspnea on exertion Gastrointestinal: no abdominal pain, no nausea, no vomiting, no constipation and no diarrhea/loose stools Genitourinary: no dysuria and no urinary urgency Musculoskeletal: no back pain and no neck pain Integumentary: + erythema; no acne and no new lesions Neurologic: no gait abnormality and no unsteadiness Psychiatric: no behavioral changes and no depression Hematologic / Lymphatic: no easy bleeding and no easy bruising Physical Exam Constitutional: WD/WN, vitals as above Eyes: PERRL, conjunctivae normal, anicteric sclerae ENMT: external ear and nose normal, oropharynx normal Neck: trachea midline, no thyromegaly Respiratory: normal respiratory effort, lungs clear to auscultation Cardiovascular: RRR, no murmur, no edema Gastrointestinal (Abdomen): normal bowel sounds, soft, nontender, no hepatosplenomegaly Musculoskeletal: no cyanosis or clubbing, extremities motor strength 5/5 Skin: no rashes, warm and dry Cellulitis of the right lateral thigh as well as the distal leg medially, tender to palpation, no appreciable abscess/fluctuance Some blistering of the right medial leg Neurologic: PERRL, EOMI, accommodation nl, no face palsy, no dysarthria Psychiatric: A+Ox3, euthymic affect Results & Data Vital Signs (Past 12 Hours) Vital Signs Temp Pulse Resp BP BP Pulse Ox O2 Del Method 03/06/25 07:50 Room Air 03/06/25 07:15 37.5 C 94 H 17 106/69 96 Room Air 03/06/25 04:32 100/65 03/06/25 02:37 36.7 C 75 18 94/58 L 95 Room Air 03/06/25 00:49 37.3 C 73 18 104/66 96 Room Air 03/05/25 22:51 36.6 C 76 18 124/77 98 Room Air PG Care Time/CCT Total # of Minutes Spent Total Time Spent with Patient: Total time spent is greater than 50% in coordination of care (as documented) at patient's floor/unit and/or counseling patient: Coding Level of Care Code 50693 SUB INP/OBS CARE 2MIN Diagnoses Cellulitis of right lower extremity L03.115 Site of cellulitis: extremity Site of cellulitis of extremity: lower extremity Laterality: right (1) Cellulitis Site of cellulitis: extremity Site of cellulitis of extremity: lower extremity Laterality: right Qualified Code(s): L03.115 - Cellulitis of right lower limb
[2025-03-06] MEDS: ADVANCED PROBIOTIC 625 MG CAPSULE PO SCH (10:27)
[2025-03-06] MEDS: CLINDAMYCIN/D5W 900 MG/50 ML BAG IV SCH (10:29)
[2025-03-06] MEDS ORDERED: LIDOCAINE 5% 1 PATCH TD STA (10:49)
--- NOTE | 2025-03-06 10:56 | Pharmacy Report ---
Pharmacy PK ABX Note - Date of Service March 06, 2025 - Assessment and Plan Assessment 39 year old F receiving Vancomycin and Zosyn for treatment of cellulitis. Clindamycin added today due to concern for necrotizing fasciitis (per hospitalist). * Day #4 of antimicrobial therapy. Daptomycin switched to Vancomycin on 03/04/25 due to worsening. * Persistent leukocytosis noted, 24k today. SCr at baseline. ESR/CRP elevated. * Blood/CSF cultures show no growth at this time. * Anticipating transfer to tertiary care hospital Plan Vancomycin * Current regimen: 1750 mg IV every 12 hours * Random level obtained 03/06/25 resulted as 16.2 mcg/mL. This is predicted to result in subtherapeutic AUC/KAMILA of less than 400 mg/L.hr * Change to 1250 mg IV every 8 hours * Predicted AUC at steady state: 508 mg/L.hr * Repeat random level ordered for: 03/08/25 (if still admitted) Pharmacy will continue to follow and will adjust dose/frequency as necessary. Thank you. Pharmacy has transitioned to AUC monitoring for vancomycin. AUC/KAMILA is the preferred PK/PD target and is associated with decreased risk of nephrotoxicity compared to traditional trough targets.
[2025-03-06] MEDS: LINEZOLID 600 MG TAB PO SCH (11:02)
--- NOTE | 2025-03-06 11:05 | Infectious Disease Consult ---
Date of Service March 06, 2025 Telehealth Information I performed this visit using a real-time telehealth connection between my location and the patients location ([facility]). After connecting through interactive tele-video, patient was identified by name and date of and/or wristband check.Patient (or authorized healthcare inbound call center representative) was informed that this was a telemedicine visit and it was being conducted confidentially over secure lines. My office door was closed and no one else was present in the room with me.Patient (or authorized healthcare inbound call center representative) provided consent to proceed with the visit, expressed an understanding of privacy and security of the telemedicine visit, and gave permission to have a hospital inbound call center representative in the room in order to assist with the visit and to conduct portions of the visit, as needed. I informed the patient (or authorized healthcare inbound call center representative) that I reviewed their record and presented the opportunity for them to ask any questions regarding the visit today. The patient agreed to participate. worsening RLE pain/cellulitis despite broad spec Assessment & Plan Plan Patient who p/w RLE pain ,swelling and fever initially there was concern for necrotizing fasciitis but this was ruled out by surgery .Imaging did not reveal any fluid collection and she is currently on zosyn and vancomycin.Recommend discontinuing zosyn and vancomycin and switching to cefazolin while inpatient and on discharge can use cephalexin for a total of 14 days .Thank you for allowing us to participate in the care of this patient ID will sign off History of Present Illness History of Present Illness 39-year-old female with past medical history significant for anxiety/depression, hypocalcemia, obesity of semaglutide for weight management, history of uterine rupture, history of acute blood loss anemia, history of incarcerated supraumbilical hernia s/p open repair in December 2024 who presented to the ED with multiple complaints including RLE pain, ambulatory dysfunction secondary to RLE pain, persistent fevers and persistent headaches.Her imaging did not reveal any abscess and necrotizing fasciitis was ruled out on zosyn and vancomycin .MRSA PCR negative Allergies Allergy/AdvReac Type Severity Reaction Status Date / Time No Known Allergies Allergy Unverified 01/10/25 09:03 Home Medications Medication Instructions Recorded Confirmed Type acetaminophen 325 mg tablet 325 mg PO DIRECTED PRN Pain 12/26/24 03/01/25 History (Tylenol) albuterol sulfate 90 mcg/actuation 1 puff inhalation DIRECTED PRN 12/26/24 03/01/25 History aerosol inhaler sob ashwagandha extract 1 tab PO DAILY 12/26/24 03/01/25 History buspirone 10 mg tablet 10 mg PO TID PRN Anxiety 12/26/24 03/01/25 History famotidine 20 mg tablet 20 mg PO BID 12/26/24 03/01/25 History ibuprofen 200 mg tablet 200 mg PO DIRECTED PRN Pain 12/26/24 03/01/25 History escitalopram oxalate 10 mg tablet 20 mg PO DAILY 01/10/25 03/01/25 History ondansetron HCl 4 mg tablet 4 mg PO DIRECTED PRN n/v 03/01/25 03/01/25 History semaglutide 1 mg/dose (4 mg/3 mL) 1 mg subcut WK 03/01/25 03/01/25 History subcutaneous pen injector Patient History Medical History Vomiting Recurrent ventral hernia Social History Smoking Status: Former smoker Second Hand Exposure: Yes (sometimes); Do You Dip or Chew Tobacco: No; Hx Alcohol Use: Yes Alcohol type: wine and hard liquor Hx Substance Use: No Preferred Language: Taiwanese Communication Ability: Effective Data Reporting Analyst Required: No Beliefs That Will Affect Care: None Current Living Situation: Family Other Information That Helps Us Care for You: No Feels Safe at Home: Yes Safety Concerns: Feels Safe At This Time Assistive Devices: None Results & Data Vital Signs (Past 12 Hours) Vital Signs Temp Pulse Resp BP Pulse Ox O2 Del Method 03/06/25 07:50 Room Air 03/06/25 07:15 37.5 C 94 H 17 106/69 96 Room Air 03/06/25 04:32 100/65 03/06/25 02:37 36.7 C 75 18 94/58 L 95 Room Air 03/06/25 00:49 37.3 C 73 18 104/66 96 Room Air Laboratory Results WBC 24,000 Diagnostic Findings IMPRESSION: Redemonstration of extensive subcutaneous edema with skin thickening which may be seen with cellulitis and/or chronic venous stasis. No organized/drainable fluid collection is identified to suggest an abscess. Mild fascial enhancement is identified in the lower leg posteriorly which could IMPRESSION: 1. Grade 2 strain of the medial head of the gastrocnemius muscle. 2. Grade 1 strain of the lateral head of the gastrocnemius muscle. 3. Posterior subcutaneous soft tissue edema 4. Knee osteoarthritic changes with joint space narrowing and peripheral osteophytes. suggest a mild fasciitis in this area. No soft tissues gas is identified. Necrotizing fasciitis remains a clinical diagnosis
[2025-03-06] MEDS: LIDOCAINE 5% 1 PATCH TD SCH (11:33)
--- NOTE | 2025-03-06 11:33 | Orthopedic Progress Note ---
Date of Service March 06, 2025 Assessment & Plan (1) Cellulitis: Plan: Patient with ongoing symptoms. Cellulitis seems to be worsening on the thigh as demonstrated above in the photo. She has significant swelling in the calf with some fluid-filled blisters medially. Neurovascularly intact. No evidence of compartment syndrome. Case reviewed with Dr. Mcallister. Will repeat the patient's upper and lower leg CT scan with IV contrast to ensure no development of abscess drainable collection. If something is present, may consider consultation with interventional radiology. Awaiting infectious disease consult note, consult was obtained after I saw the patient this morning. Clindamycin has been added to the patient's regimen, to begin shortly. Celebrex does seem to be helping with pain. Continue muscle relaxant as needed and additional as needed pain medication per primary service. Weightbearing as tolerated. Will continue to follow pending additional imaging and ID consult. (2) Sepsis: Admission and Anticipated Discharge Date Admission Date: March 01, 2025 Subjective Patient seen in bed today. She had just been up and use the restroom. She feels that the cellulitis on her right thigh has worsened and tracking up toward her groin area. The calf is still very painful and swollen and feels about the same. She has not had fevers like she did before admission though was receiving Tylenol. She denies any numbness or tingling in her toes. No history of MRSA or cellulitis previously. Physical Exam 2 Constitutional: Resting comfortably in bed. Appears to be in some discomfort with gentle range of motion of the right lower extremity with changing positions in bed. Nontoxic. Cardiovascular: Right DP pulse 2+ Musculoskeletal: Right lower extremity: Multiple areas of erythema about the lower leg as well as the upper leg. The erythema on the lower leg seems to be about the same when evaluating skin marker tracing from yesterday. There is significant edema in the lower leg and several small fluid blisters, intact. Erythema about the thigh has progressed proximally. Traced with skin marker. All areas of erythema are very tender to palpation. Strength 5/5 with ankle plantarflexion, dorsiflexion, eversion. Mild discomfort with passive dorsiflexion of the ankle. Moves all toes. Knee with no effusion. Range of motion 0 to 100 degrees Results & Data Vital Signs (Past 12 Hours) Vital Signs Temp Pulse Resp BP Pulse Ox O2 Del Method 03/06/25 07:50 Room Air 03/06/25 07:15 99.5 F 94 H 17 106/69 96 Room Air 03/06/25 04:32 100/65 03/06/25 02:37 98.1 F 75 18 94/58 L 95 Room Air 03/06/25 00:49 99.1 F 73 18 104/66 96 Room Air Laboratory Results 03/06/25 03/02/25 04:31 09:45 WBC 24.00 H RBC 3.45 L Hgb 10.4 L Hct 32.5 L MCV 94.2 MCH 30.1 MCHC 32.0 RDW Std Deviation 49.4 H RDW Coeff of Tram 14.5 Plt Count 387 MPV 9.6 Sodium 136 Potassium 3.9 Chloride 102 Carbon Dioxide 28 Anion Gap 6 BUN 12 Creatinine 0.60 Est Cr Clr Drug Dosing 157.6 eGFR 117.02 BUN/Creatinine Ratio 20.0 Glucose 85 Calcium 8.7 CSF West Nile RNA NOT DETECTED Random Vancomycin 16.2 Cryptococcus Source Cancelled Cryptococcal Ag (Latex) Cancelled West Nile Virus Source CSF (1) Cellulitis Laterality: right Site of cellulitis: extremity Site of cellulitis of extremity: lower extremity Qualified Code(s): L03.115 - Cellulitis of right lower limb (2) Sepsis Acute renal failure type: unspecified Sepsis acute organ dysfunction status: with acute organ dysfunction Sepsis type: sepsis due to unspecified organism Pina starr sepsis acute organ dysfunction type: acute renal failure Severe sepsis shock status: unspecified Qualified Code(s): A41.9 - Sepsis, unspecified organism; R65.20 - Severe sepsis without septic shock; N17.9 - Acute kidney failure, unspecified
[2025-03-06] MEDS: OPTIRAY 320 100ml IV ONE (12:36)
--- NOTE | 2025-03-06 13:47 | CT Scan Report ---
CT femur RT w con HISTORY: 39 years-old Female progressive cellulitis, eval for abscess acute pain and swelling of the right thigh COMPARISON: Tibia and fibula CT of same day and also 03/04/2025 TECHNIQUE: Multiple axial CT images of the right femur were obtained with IV contrast. A dose lowerin g technique was used consistent with the principals of MIS. FINDINGS: Subcentimeter metallic density focus noted involving the loop of bowel within the midline lower abdom en. Trace nonspecific free pelvic fluid. Right inguinal lymphadenopathy measures up to 2.0 x 1.6 cm. Borderline enlarged right popliteal lymph nodes. There is moderate anterolateral predominant subcutan eous edema with cutaneous thickening involving the right thigh. Additionally, there is diffuse perifa scial edema involving the hamstrings greater than the quadriceps musculature. No discrete intramuscul ar hematoma. No discrete fluid collections. Mild osteoarthritis of the hips and right knee. No acute fracture, dislocation or osseous erosion. No avascular necrosis. IMPRESSION: 1. Findings suggestive of moderate right thigh cellulitis without abscess. 2. Possible myositis of the right thigh without intramuscular fluid collection. 3. Right inguinal and popliteal lymphadenopathy, favored to be reactive. ACT 112: Negative or not required by law. The above report was generated using voice recognition software. It may contain grammatical, syntax o r spelling errors. Electronically signed by: Clyde Garcia M.D. 03/06/2025 1:45 PM
--- NOTE | 2025-03-06 14:13 | CT Scan Report ---
CT OF THE RIGHT TIBIA AND FIBULA/LOWER LEG WITH CONTRAST CLINICAL HISTORY: Progressive cellulitis, eval for abscess. COMPARISON STUDY: Right tibia and fibula CT March 04, 2025. MRI of the right lower leg March 02, 2025. TECHNIQUE: Axial images of the right lower leg/tibia and fibula were obtained following intravenous i njection of 94 cc of Optiray 320 IV. Sagittal and coronal reformats were viewed. A dose lowering tech nique was utilized adhering to the principles of ALARA. FINDINGS: Medial right lower leg skin thickening with extensive subcutaneous edema is similar to CT o f March 04, 2025. No associated soft tissue gas is present. No rim-enhancing fluid collection is noted . However, there is a moderate amount of fluid along the fascia overlying the medial head of the james rocnemius with associated myofascial enhancement. This is been shown on image 132 of 394. There is as sociated mass effect upon the gastrocnemius which was not evident on CT of March 04, 2025 but was note d on MRI of March 02, 2025. No intramuscular abnormality is identified. There is no bony erosion withi n the right tibia or fibula. No fractures are identified. IMPRESSION: 1. Medial right lower leg skin thickening with extensive subcutaneous stranding of the right lower le g consistent with cellulitis, similar to prior CT. No soft tissue gas. 2. Moderate amount of fluid along the fascia overlying the medial head of the right gastrocnemius, in creased since prior CT. Associated myofascial enhancement and mild mass effect upon the gastrocnemius , also increased since prior CT. This is consistent with an infectious etiology and could represent m yositis or fasciitis. No peripheral enhancement to indicate abscess by CT. 3. No evidence for osteomyelitis within the right tibia or fibula. ACT 112: Negative or not required by law. Electronically signed by: Claude Hinds M.D. 03/06/2025 2:12 PM
--- NOTE | 2025-03-06 16:34 | Discharge Summary ---
Discharge Summary Date of Service March 06, 2025 Principal Dx & Hospital Course #1 = Principal Diagnosis (1) Sepsis: (2) Headache: (3) Persistent fever: (4) Neck pain: (5) Acute pain of right lower extremity: (6) Abnormal urinalysis: (7) LORENA (acute kidney injury): Plan Patient is a 39-year-old female with past medical history significant for anxiety/depression, hypocalcemia, obesity of semaglutide for weight management, history of uterine rupture, history of acute blood loss anemia, history of incarcerated supraumbilical hernia s/p open repair in December 2024 and other problems listed below who presented to the ED with multiple complaints including RLE pain, ambulatory dysfunction secondary to RLE pain, persistent fevers and persistent headaches. #Severe Sepsis, resolved #Complicated Nonpurulent Cellulitis #Asymptomatic Bacteriuria -lumbar puncture performed with zero WBC present, protein and glucose not consistent with bacterial meningitis -viral meningitis possible but less likely given 0 WBC -patient has RLE erythema and very dirty urine consistent with 2 possible sources for sepsis -CTAP: hepatomegaly, moderate gallbladder distention w/ secondary sign of inflammation, b/l nonobstructing kidney stones -LFTs unremarkable (hepatomegaly) --> continue to monitor; poss fatty liver dz given body habitus -repeated CT imaging of leg shows improved mild soft tissue edema in RLE, no gas -CT imaging, exam not suggestive of necrotizing infection at this time Plan: -continue zosyn, vancomycin (day 4/7) -communication order placed for RLE elevation -f/u culture results -surgery consulted for consideration of necrotizing infection, appreciate recs -ID consulted, appreciate recs #Right Thigh Sprain #Acute Nociceptive Pain -pain out of proportion to imaging findings -denies neuropathic component to pain -improved on current regiment Plan: -continue dilaudid 4mg q3hr prn -stop IV dilaudid -cyclobenzaprine, celoxib as recommended by ortho -continue lidocaine patches -PT/OT ordered -ortho consulted, appreciate recs #Headache -improved #LORENA -resolved #Anxiety/depression -Continue Lexapro #GERD -Continue Pepcid #Obesity -On semaglutide for weight control --> hold while inpt #Hyponatremia -stable #Hypokalemia -resolved Notes For Next Care Provider Patient is a 39-year-old female with past medical history significant for anxiety/depression, hypocalcemia, obesity of semaglutide for weight management, history of uterine rupture, history of acute blood loss anemia, history of incarcerated supraumbilical hernia s/p open repair in December 2024 and other problems listed below who presented to the ED with multiple complaints including RLE pain, ambulatory dysfunction secondary to RLE pain, persistent fevers and persistent headaches. Admitted to medicine for meningitis r/o. On medicine, LP reassuring for no meningitis. RLE cellulitis continued to progress daily despite escalation of abx from ceftriaxone, added vancomycin, switched ceftriaxone to zosyn, then added clindamycin. Surgery and ortho consulted for r/o nec fasc. ID consultation/order placed on AM 03/04/2025; however patient was not seen. Discussed case with ortho/surgery, patient showing no improvement, and concern for necrotizing or worsening fascitis disease. On 03/06/2025, on recommendation of ortho and surgery, patient transferred to [facility] for infectious disease consultation and consideration of surgical exploration. Medication Changes From Visit -see below Admission HPI Per Admitting Provider Patient is a 39-year-old female with past medical history significant for anxiety/depression, hypocalcemia, obesity of semaglutide for weight management, history of uterine rupture, history of acute blood loss anemia, history of incarcerated supraumbilical hernia s/p open repair in December 2024 and other problem s listed below who presented to the ED with multiple complaints including RLE pain, ambulatory dysfunction secondary to RLE pain, persistent fevers and persistent headaches. History obtained from the patient, discussion with the ED provider and associated chart review. Patient was playing on a swing set with her son this past Wednesday evening when she started to experience pain in her RLE. Initially thought she had pulled or strained muscle however then she started to develop erythema along her right posterior calf region which now has radiated up to the right popliteal fossa. This area of erythema is also warm to palpation. Ambulation has become difficult with this RLE pain; however, no reported falls or additional mechanisms of injury. She started with persistent fevers Wednesday morning with Tmax of 104.6 F, which was recorded yesterday afternoon. Patient states the fevers would initially resolve with "[id number]" Tylenol and Motrin; however, upon the medication "wearing off," the fevers would return. She has been experiencing persistent global headaches since Wednesday morning as well which are only partially relieved with the Tylenol and Motrin. No reported visual disturbances; although, patient experienced 3 separate bouts of vomiting yesterday afternoon. Poor appetite reported with decline in oral fluid intake - especially since experiencing bouts of nausea since yesterday afternoon. She also has been experiencing neck pain but states it is more localized to the left side of her neck. No reported difficulties with bending her neck; however, she does have increased pain with turning her neck side to side. She had 1 bout of diarrhea last evening but nothing further; no BRBPR or melena. Denies any dysuria, hematuria, abdominal pain, SOB or chest pain. Patient was seen at [facility] in [place] yesterday for the above complaints. CXR negative. Influenza A/B, Lyme disease screen negative. Anaplasma/Babesia PCR panel negative. UA with >200 bacteria, + blood, >300 protein and 6-9 WBC. Urine culture pending. R knee XR negative. She has not been placed on any antibiotics. Discharge Exam Gen: A&O 3 NAD HEENT: NCAT, EOMI, not icteric. External ears normal. No rhinorrhea. Moist mucous membranes. Neck: Supple, full range of motion, no observable masses, No meningeal sign. Lungs: No Respiratory distress. CV: RRR, no edema. Abdomen: Soft, nondistended, No rebound tenderness. MSK: No joint swelling, no redness. Skin: RLE erythema, eccymoses around right hamstring correlating with tear, tenderness to palpation. Neuro: Normal Gait, Grossly intact. Psych: Appropriate for situation. Updated Medication List Medication Instructions Recorded Confirmed Type acetaminophen 325 mg tablet 325 mg PO DIRECTED PRN Pain 12/26/24 03/01/25 History (Tylenol) albuterol sulfate 90 mcg/actuation 1 puff inhalation DIRECTED PRN 12/26/24 03/01/25 History aerosol inhaler sob buspirone 10 mg tablet 10 mg PO TID PRN Anxiety 12/26/24 03/01/25 History famotidine 20 mg tablet 20 mg PO BID 12/26/24 03/01/25 History ibuprofen 200 mg tablet 200 mg PO DIRECTED PRN Pain 12/26/24 03/01/25 History escitalopram oxalate 10 mg tablet 20 mg PO DAILY 01/10/25 03/01/25 History ondansetron HCl 4 mg tablet 4 mg PO DIRECTED PRN n/v 03/01/25 03/01/25 History semaglutide 1 mg/dose (4 mg/3 mL) 1 mg subcut WK 03/01/25 03/01/25 History subcutaneous pen injector L.acidop,casei,lactis,rham-B.lact,marjorie 1 cap PO DAILY #30 caps 03/06/25 Rx 625 mg (10 billion cell) capsule (Advanced Probiotic) celecoxib 100 mg capsule (Celebrex) 100 mg PO BID #30 caps 03/06/25 Rx Hospital Stay Data Consultations 03/01/25 16:27 ED Decision to Admit Stat 03/03/25 13:29 Consult Orthopedic Surgery Routine 03/04/25 07:51 Consult General Surgery Routine 03/04/25 07:53 Consult Infectious Diseases Routine Diagnostic Imagining Performed 03/01/25 13:37 CT head/brain wo con Stat US leg [US venous doppler LE RT] Stat 03/01/25 13:53 CT Abd and Pelvis [CT abd pelvis IV con only] Stat 03/02/25 00:18 MR femur RT wo/w con Urgent MR lumbar spine wo/w con Urgent 03/02/25 00:19 MR lower leg RT wo/w con Urgent 03/02/25 11:00 IR lumbar puncture diagnostic Routine 03/03/25 10:04 CT tib/fib RT w con Urgent 03/04/25 01:12 US venous doppler LE BI Urgent 03/04/25 15:05 CT tib/fib RT w con Urgent 03/06/25 10:50 CT leg [CT femur RT w con] Routine CT leg [CT tib/fib RT w con] Routine Pending Results Patient Have Any Pending Studies at Discharge: No Discharge Instructions Given to Patient (Per Discharging Provider) 1. Transfer to [facility] SICU. Total Time Total Time Spent Total Time Spent (In Minutes): I spent a total of 55 minutes in direct patient care, including [id number] time with the patient and/or family, reviewing medical records, ordering and reviewing diagnostic tests, and coordinating care with other healthcare providers. This time includes: history taking, physical examination, medical decision making, counseling, ECG interpretation, imaging interpretation, lab interpretation, orders, and education, excluding time spent in the performance of separately billed services.
[2025-03-06 18:38] LABS: EBV DNA, Quant Log Not Detected Log cps/mL
[2025-03-08] MEDS ORDERED: VANCOMYCIN LEVEL ONE (07:00)
[2025-03-09 11:09] LABS: CSF, LDH 12 U/L (<=25); VDRL Qualitative CSF Nonreactive (Nonreactive)
== END 2025-03-06 14:40 | disposition short-term general hospital (02) | DRG 872 ==
LOC: ED 13:07 → SUATTDRO 16:57 → 2S 16:57 → 3E 03-04 16:39